=== PATIENT | male | born 1935 | race Caucasian/White ===

== ENCOUNTER 2016-07-07 11:50 | Emergency (ER) | payer MEDICARE, MEDICAID ==
[~2016-07-07] VITALS: Ht 162.6 cm; Wt 96.0 kg
[~2016-07-07 11:50] MED LIST: ACYC400T2 PO; ATEN1TAB; BUSP10TA2; CEFU500T45 PO
[2016-07-07 11:52] VITALS: Ht 162.6 cm; Wt 96.0 kg
--- NOTE | 2016-07-07 15:18 | RADRPT ---
PROCEDURE: XR Chest. CLINICAL INDICATION: trauma TECHNIQUE: Frontal chest x-ray was obtained. COMPARISON: None. FINDINGS: Heart is not enlarged. Mediastinum is not widened. No hilar mass is seen. Lungs are clear of any infiltrates. Right costophrenic angle is not included in the study. No pleural effusion or pneumoth orax is seen. There is right pleural thickening. No fractures are noted. IMPRESSION: Right pleural thickening. Otherwise normal incomplete chest x-ray. .Abdifatah Luo MD, Date Time Electronically viewed and signed by .Abdifatah Luo MD, on 07/07/2016 15:17 .A/
--- NOTE | 2016-07-07 16:06 | RADRPT ---
PROCEDURE: XR Left rib series. CLINICAL INDICATION: Trauma with left-sided rib pain. TECHNIQUE: 3 views of the left rib cage are available for review COMPARISON: Exam dated 07/07/2016. FINDINGS: No displaced rib fractures identified. No acute fracture or dislocation is identified. The visuali zed right lung is clear. There are atherosclerotic changes of the aorta. IMPRESSION: 1. Negative for a displaced rib fracture. 2. Vascular calcifications consistent with atherosclerosis. RPTAT: HLBP .Farzad Santos MD, Date Time Electronically viewed and signed by .Farzad Santos MD, on 07/07/2016 16:05 .P/
[2016-07-07] MEDS ORDERED: AZIT250T94 PO (16:13)
--- NOTE | 2016-07-07 16:21 | ERD ---
ER Documentation Chief Complaint Date/Time DATE: 07/07/16 TIME: 16:18 Chief Complaint LEFT RIB PAIN X 3 DAYS HPI Patient is a 80-year-old male presents complaining of cough and congestion for 3 days as well as left-sided rib pain from coughing. Denies fever. Denies phlegm. Denies nausea vomiting diarrhea. Denies chest pain or shortness of breath. ROS All systems reviewed and are negative except as per history of present illness. Medications Home Meds Active Scripts Azithromycin* (Zithromax*) 250 Mg Tablet, 250 MG PO .ZPACK DIRECTED, #6 TAB TAKE 500 MG (2 TABS) THE FIRST DAY THEN 250 MG (1 TAB) DAYS 2-5 Prov:PATRICIA DOMINGUEZ PA-C 07/07/16 Reported Medications Acyclovir* (Acyclovir*) 400 Mg Tablet, 400 MG PO 5X/DAY 01/29/11 Cefuroxime Axetil* (Cefuroxime Axetil*) 500 Mg Tablet, 500 MG PO BID 01/29/11 Buspirone Hcl* (Buspirone Hcl*) 10 Mg Tablet 05/28/10 Atenolol-Chlorthalidone (Tenoretic 100) 1 Tab Tablet 04/04/10 Allergies Allergies: Coded Allergies: No Known Drug Allergy (Verified Allergy, Mild, 07/07/16) PMhx/Soc History of Surgery: No (HTN.HIGH CHOLESTEROL. NO OTHER MEDICAL HISTORY OR SURGICAL HISTORY) Anesthesia Reaction: No Hx Neurological Disorder: No Hx Respiratory Disorders: No Hx Cardiac Disorders: No Hx Psychiatric Problems: No Hx Miscellaneous Medical Probl: Yes (HTN) Hx Alcohol Use: No Hx Substance Use: No Hx Tobacco Use: No Smoking Status: Unknown if ever smoked FmHx Family History: No diabetes Physical Exam Vitals Vital Signs Date Time Temp Pulse Resp B/P Pulse Ox O2 Delivery O2 Flow Rate FiO2 07/07/16 11:52 98.6 95 19 176/88 95 Physical Exam General: well developed, well nourished, alert, nontoxic, no distress Head: normocephalic, atraumatic Eyes: PERRL, normal conjunctiva Neck: Supple, nontender, no lymphadenopathy, no midline tenderness Oropharynx: no tonsilar erythema or edema, uvula midline, no exudates, no kissing tonsils, no drooling Respiratory: Clear to auscaultation bilaterally, speaks in full sentences, no use of accesory muscles or labored breathing, no rales, ronchi, or wheezing Cardiovascular: RRR, No murmurs GI: soft, non tender, non distended, negative murphys sign, negative mcburneys point tenderness, no cva tenderness bilaterally, no rebound or guarding Back: no midline tenderness, no step offs or bony abnormalities, sensation to light touch in tact Extremities: moving all extremities normally, normal gait, no edema Procedures/MDM Patient presents with cough and congestion. He is afebrile well-appearing. Patient's blood pressure was elevated (>120/80) but appears stable without evidence of hypertension emergency or urgency. The patient was counseled about the risks of hypertension and urged to pursue outpatient monitoring and therapy within a week with their primary care physician. X-ray of chest and ribs negative for acute disease or fracture. Patient was discharged with azithromycin. I reviewed her chart with my supervising physician Dr. Johnson. Recommended this patient follow up with her primary care doctor within 48 hours or return to the emergency room for any worsening of symptoms. However this time I do believe there is suitable for outpatient management. I answered all their questions and they agreed with the plan and were discharged home. Departure Diagnosis: Primary Impression: Bronchitis Condition: Stable Patient Instructions: Acute Bronchitis Additional Instructions: Llame al doctor BUTCH y edda lester MELINA PARA DENTRO DE 1-2 BUCK.Dgale a la secretaria que nosotros le instruimos hacer esta melina.Avise o llame si phillips condicin se empeora antes de la melina. Regresa aqui si peor o no mejor. PATRICIA DOMINGUEZ PA-C Jul 07, 2016 16:21
[2016-07-07 16:26] VITALS: BP 158/89; RESP 18
== END 2016-07-07 16:26 | disposition home or self-care (01) ==
LOC: FTE 11:50
DX: J20.9 Acute bronchitis, unspecified (principal); I10 Essential (primary) hypertension
CPT/HCPCS: 71010; 71100

== ENCOUNTER 2016-07-18 09:07 | Inpatient (IN) | payer MEDICARE, MEDICAID ==
[~2016-07-18] VITALS: Ht 167.6 cm; Wt 95.0 kg
[~2016-07-18 09:07] MED LIST changes: +AZIT250T94 PO
[2016-07-18] MEDS ORDERED: ALBUTEROL/IPRATROPIUM (NEB) 3 ML AMP HHN STA (09:59)
[2016-07-18] MEDS ORDERED: DEXAMETHASONE 10 MG/ML 1 ML INJ IV ONE (10:00)
--- NOTE | 2016-07-18 10:26 | RADRPT ---
PROCEDURE: XR Chest. CLINICAL INDICATION: Shortness of breath. TECHNIQUE: Single frontal view of the chest was obtained. COMPARISON: 07/07/2016. FINDINGS: Cardiac silhouette is enlarged. There is calcification in the thoracic aorta. Pulmonary vasculatur e appears borderline increased. There is near-complete opacification of the left hemithorax with a minimal amount of aerated lung in the left apex. This is presumably secondary to consolidation, ate lectasis and pleural effusion. There is very slight pleural thickening laterally on the right. Thi s may indicate trace pleural fluid. IMPRESSION: 1. Cardiomegaly with mild upper lobe vasculature prominence which may reflect pulmonary venous hyper tension. 2. Near-complete opacification left hemithorax this is presumably a combination of consolidation, a telectasis and moderate pleural effusion. 3. Aortic atherosclerosis. RPTAT: [facility]ACC Physician Josiah Date Time Electronically viewed and signed by Physician Josiah on 07/18/2016 10:25 /
[2016-07-18 10:45] LABS: ALBUMIN 3.4 g/dl (3.3-4.9)
[2016-07-18 10:46] LABS: POTASSIUM 4.2 mmol/L (3.5-5.1)
[2016-07-18 10:48] LABS: BILIRUBIN,INDIRECT 0.1 mg/dl (0-1.1); BILIRUBIN,TOTAL 0.1 mg/dl (0.2-1.3); CREATININE 1.04 mg/dl (0.61-1.24)
[2016-07-18 10:49] LABS: CALCIUM 8.3 mg/dl (8.4-10.2); TOTAL PROTEIN 6.8 g/dl (6.1-8.1)
[2016-07-18 10:52] LABS: INR 0.94; PROTIME 12.6 Sec (12.2-14.2)
[2016-07-18 10:53] LABS: PARTIAL THROMBOPLASTIN TIME 30.3 Sec (25.0-35.0)
[2016-07-18 10:57] LABS: BASOPHILS % 0.2 % (0.0-2.0); EOSINOPHILS # 0.1 10^3/ul (0.0-0.5); EOSINOPHILS % 0.8 % (0.0-7.0); HEMATOCRIT 42.3 % (42.0-52.0); HEMOGLOBIN 13.8 g/dl (14.0-18.0); LYMPHOCYTES # 0.9 10^3/ul (0.8-2.9); LYMPHOCYTES % 8.3 % (15.0-51.0); MEAN CORPUSCULAR HEMOGLOBIN 30.4 pg (29.0-33.0); MEAN CORPUSCULAR HGB CONC 32.7 g/dl (32.0-37.0); MEAN CORPUSCULAR VOLUME 93.1 fl (82.0-101.0); MEAN PLATELET VOLUME 8.1 fl (7.4-10.4); MONOCYTE # 0.7 10^3/ul (0.3-0.9); MONOCYTES % 6.6 % (0.0-11.0); NEUTROPHIL # 8.7 10^3/ul (1.6-7.5); NEUTROPHILS % 84.1 % (39.0-77.0); PLATELET COUNT 327 10^3/UL (140-440); RED BLOOD COUNT 4.54 10^6/ul (4.70-6.10); RED CELL DISTRIBUTION WIDTH 13.6 % (11.5-14.5); UNCORRECTED WBC 10.4 10^3/ul (4.8-10.8); WHITE BLOOD COUNT 10.4 10^3/ul (4.8-10.8)
[2016-07-18 10:58] LABS: CONDITION 1
[2016-07-18 11:00] LABS: TROPONIN-I 0.054 ng/ml (0.00-0.12)
[2016-07-18] MEDS ORDERED: AMLO2.5T78 PO (11:26)
[2016-07-18] MEDS ORDERED: SERT25TA83 PO (11:26)
--- NOTE | 2016-07-18 13:15 | RADRPT ---
PROCEDURE: CT Chest without contrast. CLINICAL INDICATION: Dyspnea TECHNIQUE: CT of the chest was performed on a multi-detector scanner without IV contrast. Coronal and sagittal images were reformatted from the axial data set. One or more of the following dose re duction techniques were used: automated exposure control, adjustment of the mA and/or kV according to patient size, use of iterative reconstruction technique. CTDI = 16.74 mGy. DLP = 692.04 mGy-cm. COMPARISON: None FINDINGS: Large loculated left pleural fluid collection is identified, causing near complete collapse of the l eft lung. Hyperdensities are seen within small airways at the left lung base, possibly aspirated ba rium. Atelectasis and scarring are noted at the right lung base. No pneumothorax or pulmonary coleman a is identified. The central tracheobronchial tree is clear. No gross evidence of suspicious pulmo nary nodule or mass lesion is identified. The heart size is normal without pericardial effusion. Coronary arterial and aortic atherosclerotic calcifications are present. There is no thoracic aortic aneurysm. No mediastinal, hilar, axillary or supraclavicular lymphadenopathy is identified. Visualized portions of the upper abdomen demonstrate no acute abnormality. The surrounding osseous s tructures are remarkable for degenerative spondylosis of the spine. No osteolytic or osteoblastic l esion is detected. IMPRESSION: 1. Large loculated left pleural fluid collection is identified, causing near complete collapse of t he left lung. 2. Hyperdensities are seen within small airways at the left lung base, possibly aspirated barium. 3. Coronary arterial and aortic atherosclerotic calcifications are present. 4. No gross evidence of pulmonary nodule or mass is seen. No lymphadenopathy is identified. RPTAT: EE .Dominick Bonds MD, MD Date Time Electronically viewed and signed by .Dominick Bonds MD, MD on 07/18/2016 13:14 .R/
--- NOTE | 2016-07-18 14:17 | ERA ---
ER Documentation Chief Complaint Date/Time DATE: 07/18/16 TIME: 14:09 Chief Complaint SOB FOR FEW DAYS, WORSEN TODAY HPI Patient is an 80-year-old male who reports shortness of breath over the last several days. He states it is worse with exertion but not with supine position. He denies any fever, cough, congestion, sputum production, sore throat, rhinorrhea, otalgia, nausea, vomiting, diarrhea, abdominal pain, chest trauma, peripheral edema. He says he has never really had this before. Nothing seems to improve it. ROS All systems reviewed and are negative except as per history of present illness. Medications Home Meds Reported Medications Sertraline Hcl* (Sertraline Hcl*) 25 Mg Tablet, 25 MG PO DAILY, #30 TAB 07/18/16 Amlodipine Besylate* (Amlodipine Besylate*) 2.5 Mg Tablet, 2.5 MG PO DAILY, #30 TAB 07/18/16 Discontinued Reported Medications Acyclovir* (Acyclovir*) 400 Mg Tablet, 400 MG PO 5X/DAY 01/29/11 Cefuroxime Axetil* (Cefuroxime Axetil*) 500 Mg Tablet, 500 MG PO BID 01/29/11 Buspirone Hcl* (Buspirone Hcl*) 10 Mg Tablet 05/28/10 Atenolol-Chlorthalidone (Tenoretic 100) 1 Tab Tablet 04/04/10 Discontinued Scripts Azithromycin* (Zithromax*) 250 Mg Tablet, 250 MG PO .ZPACK DIRECTED, #6 TAB TAKE 500 MG (2 TABS) THE FIRST DAY THEN 250 MG (1 TAB) DAYS 2-5 Prov:PATRICIA DOMINGUEZ PA-C 07/07/16 Allergies Allergies: Coded Allergies: No Known Drug Allergy (Verified Allergy, Mild, 07/07/16) PMhx/Soc History of Surgery: No (HTN.HIGH CHOLESTEROL. NO OTHER MEDICAL HISTORY OR SURGICAL HISTORY) Anesthesia Reaction: No Hx Neurological Disorder: No Hx Respiratory Disorders: No Hx Cardiac Disorders: No Hx Psychiatric Problems: No Hx Miscellaneous Medical Probl: Yes (HTN) Hx Alcohol Use: No Hx Substance Use: No Hx Tobacco Use: No Smoking Status: Current every day smoker FmHx Family History: coronary disease Physical Exam Vitals Vital Signs Date Time Temp Pulse Resp B/P Pulse Ox O2 Delivery O2 Flow Rate FiO2 07/18/16 12:40 98.1 82 20 131/90 97 Nasal Cannula 3.0 07/18/16 10:45 89 20 95 Nasal Cannula 3.0 07/18/16 10:45 3.0 07/18/16 09:27 Nasal Cannula 3.0 07/18/16 09:27 Nasal Cannula 3 07/18/16 09:10 97.5 107 24 187/95 82 Physical Exam Const: [] Well-developed well-nourished male sitting on the bed no acute distress Head: Atraumatic normocephalic Eyes: Normal Conjunctiva ENT: Normal External Ears, Nose and Mouth. Neck: Full range of motion..~ No meningismus. Resp: Diffuse wheezing noted with decreased breath sounds noted in the left lung field, surprisingly no tachypnea Cardio: Regular rate and rhythm, no murmurs Abd: Soft, non tender, non distended. Normal bowel sounds Skin: No petechiae or rashes Back: No midline or flank tenderness Ext: No cyanosis, or edema Neur: Awake and alert oriented 3 GCS of 15 Psych: Normal Mood and Affect Result Diagram: 07/18/1695107/18/1652 Results 24 hrs Laboratory Tests Test 07/18/16 09:52 Activated Partial Thromboplast Time 30.3Sec Alanine Aminotransferase (ALT/SGPT) 40IU/L Albumin 3.4g/dl Albumin/Globulin Ratio 1.00 Alkaline Phosphatase 77IU/L Anion Gap 13 Aspartate Amino Transf (AST/SGOT) 35IU/L B-Type Natriuretic Peptide 837PG/ML Basophils # 0.010^3/ul Basophils % 0.2% Blood Urea Nitrogen 17mg/dl Calcium Level 8.3mg/dl Carbon Dioxide Level 33mmol/L Chloride Level 99mmol/L Creatinine 1.04mg/dl Direct Bilirubin 0.00mg/dl Eosinophils # 0.110^3/ul Eosinophils % 0.8% Globulin 3.40g/dl Glucose Level 102mg/dl Hematocrit 42.3% Hemoglobin 13.8g/dl INR International Normalized Ratio 0.94 Indirect Bilirubin 0.1mg/dl Lymphocytes # 0.910^3/ul Lymphocytes % 8.3% Mean Corpuscular Hemoglobin 30.4pg Mean Corpuscular Hemoglobin Concent 32.7g/dl Mean Corpuscular Volume 93.1fl Mean Platelet Volume 8.1fl Monocytes # 0.710^3/ul Monocytes % 6.6% Neutrophils # 8.710^3/ul Neutrophils % 84.1% Nucleated Red Blood Cells # 0.010^3/ul Nucleated Red Blood Cells % 0.0/100WBC Platelet Count 12651^3/UL Potassium Level 4.2mmol/L Prothrombin Time 12.6Sec Prothrombin Time Ratio 1.0 Red Blood Count 4.5410^6/ul Red Cell Distribution Width 13.6% Sodium Level 141mmol/L Total Bilirubin 0.1mg/dl Total Protein 6.8g/dl Troponin I 0.054ng/ml White Blood Count 10.410^3/ul Current Medications Medications (Trade) Dose Ordered Sig/Scott Route PRN Reason Start Time Stop Time Status Last Admin Dose Admin Albuterol/ Ipratropium (Duoneb) 3 ml ONCE STAT HHN 07/18/16 09:59 07/18/16 10:00 DC 07/18/16 10:44 Dexamethasone (Decadron) 6 mg ONCE ONCE IV 07/18/16 10:00 07/18/16 10:01 DC 07/18/16 10:49 Procedures/MDM Differential includes pneumonia, bronchitis, COPD, CHF, myocardial ischemia, pleural effusion, dyspnea EKG: Normal sinus rhythm at 94 bpm, Q-wave noted only in lead V2, poor R-wave progression across the precordium, nonspecific ST-T wave changes without evidence for acute ischemia, no old EKG available for comparison Chest x-ray: Left large left pleural effusion 1416: Patient remains hemodynamically stable with no change in his examination. I have spoken with Dr. Smiley to have the patient admitted to the hospital for further evaluation and treatment. Also consult with interventional radiology to have his pleural effusion tapped and sent to pathology for evaluation. I have informed to the patient and his of these test results and his need for admission for further evaluation. Departure Diagnosis: Primary Impression: Pleural effusion on left Additional Impression: Shortness of breath SAMMI ZIMMERMAN Jul 18, 2016 14:17
[2016-07-18] MEDS ORDERED: ONDANSETRON 4 MG INJ IV PRN ×2 (14:30→20:00)
[2016-07-18] MEDS ORDERED: ACETAMINOPHEN 325 MG TAB PO PRN ×3 (14:30→20:00)
[2016-07-18 16:03] VITALS: TEMP 97.1
[2016-07-18] MEDS ORDERED: LIDOCAINE 1% (MPF) 5 ML VIAL ONE (16:07)
--- NOTE | 2016-07-18 16:09 | RADRPT ---
PROCEDURE: US guided left thoracentesis. CLINICAL INDICATION: Shortness of breath. Left pleural effusion. TECHNIQUE: Prior to the procedure, informed consent was obtained. The risks, benefits, and alternatives were e xplained to the patient or the patient's family, including but not limited to bleeding, infection, p ain, visceral or vascular damage, shock, pneumothorax, chest tube placement, air embolism, and . The patient or the patient's family understood the risks and the alternatives and wished to proce ed with the study. Informed written consent was obtained. A procedural pause was performed. The patient's name, date of , and procedure to be performed were verified. Ultrasound of the left hemithorax was performed in the axial and sagittal planes. A left pleural eff usion is noted. Utilizing ultrasound guidance, optimal location for entry to the pleural cavity was ascertained. The overlying skin was prepped and draped in the usual sterile fashion. Approximately 10 ml of 1% Xylocaine was injected locally for pain control. Using ultrasound guidance, a 5-Uzbek Yueh catheter was introduced into the left pleural space without difficulty. Fluid was aspirated. COMPARISON: None. FINDINGS: Initial ultrasound demonstrates fluid in the left pleural space. Approximately 2.0 liters of serosa nguineous was aspirated and sent to the laboratory. IMPRESSION: 1. Satisfactory ultrasound-guided left thoracentesis. RPTAT: QQ .Sha Crowley MD, Date Time Electronically viewed and signed by .Sha Crowley MD, on 07/18/2016 16:08 .R/
--- NOTE | 2016-07-18 16:32 | RADRPT ---
PROCEDURE: XR Chest 1 view. CLINICAL INDICATION: Status post thoracentesis TECHNIQUE: AP views of the chest were obtained. COMPARISON: July 18, 2016 at 09:48 a.m. FINDINGS: The heart is large. Calcified atherosclerosis is noted in the aorta. There has been interval decrea se in left pleural fluid with improved aeration of the left lung. Moderate residual pleural effusio n remains. Patchy infiltrates in the left mid and lower lung are seen. Small right pleural effusio n with associated basilar atelectasis is seen. No pneumothorax as visualized. Osseous structures a re intact. IMPRESSION: Cardiomegaly with calcified atherosclerosis in the aorta. Interval decrease in left pleural effusion with improved aeration of the left lung. Moderate residu al pleural effusion with associated lower lobe infiltrates remains. No pneumothorax. Small right pleural effusion with associated basilar atelectasis. RPTAT: AA .Urban Arias MD, Date Time Electronically viewed and signed by .Urban Arias MD, MD on 07/18/2016 16:31 .P/
[2016-07-18 17:20] VITALS: Ht 167.6 cm; Wt 95.0 kg
[2016-07-18 17:33] VITALS: BP 154/74; RESP 20
[2016-07-18 17:45] LABS: FLUID GLUCOSE 115 mg/dl; FLUID LD 1419 U/L; FLUID TOTAL PROTEIN 4.4 g/dl; FLUID TYPE PLEURAL FLUID
[2016-07-18 17:47] VITALS: PULSE 92
[2016-07-18 18:45] VITALS: BP 124/74; RESP 15
[2016-07-18] MEDS ORDERED: LEVOFLOXACIN 500MG/D5W (PMX) 100 ML IVPB SCH (19:00)
--- NOTE | 2016-07-18 19:47 | QN ---
Documentation Comment [id number] SAMARIA LINO MD Jul 18, 2016 19:47
[2016-07-18] MEDS ORDERED: NACL 0.9% 3 ML SYG IV SCH (20:00)
[2016-07-18] MEDS ORDERED: DOCUSATE SODIUM 100 MG CAP PO PRN (20:00)
[2016-07-18] MEDS ORDERED: MAGNESIUM HYDROXIDE 30ML CUP PO PRN (20:00)
[2016-07-18] MEDS ORDERED: BISACODYL (EC) 5 MG TAB PO PRN (20:00)
[2016-07-18] MEDS ORDERED: ACETAMINOPHEN 650 MG SUPP PR PRN (20:00)
[2016-07-18 20:26] VITALS: PULSE 91
--- NOTE | 2016-07-18 20:30 | HP ---
DATE OF ADMISSION: 07/18/2016 HISTORY OF PRESENT ILLNESS: Andrew Ibarra is an 80-year-old male who has history of hypertension. 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 The patient's chest x-ray shows card iomegaly with calcified atherosclerosis in the aorta and total decrease in the left pleural effusion with improved aeration of the left lung, moderate residual pleural effusion with associated lower l obe infiltrate, small right pleural effusion with associated bibasilar atelectasis. The patient's C T chest shows large loculated left pleural effusion collection, hyperdensities, coronary arteries an d aortic atherosclerotic calcifications present. The patient had ultrasound-guided thoracentesis. Two liters were removed, and the patient is feeling better. PAST MEDICAL HISTORY: Hypertension, depression. ALLERGY HISTORY: NEGATIVE. FAMILY HISTORY: Denies. SOCIAL HISTORY: Denies. MEDICATION HISTORY: Listed as: 1. Amlodipine. 2. Zoloft. REVIEW OF SYSTEMS: HEENT: Unremarkable. RESPIRATORY: Short of breath, orthopnea, PND. CARDIOVASCULAR: No chest pain, palpitation. ABDOMEN: No dyspepsia. EXTREMITIES: No swelling. CENTRAL NERVOUS SYSTEM: Unremarkable. PHYSICAL EXAMINATION: GENERAL: The patient is an overweight male, awake, alert. VITAL SIGNS: Stable. Pulse 94, blood pressure 154/74. HEENT: Head is atraumatic, normocephalic. Pupils are equal, reactive to light. No pale conjunctiv ae or icterus. NECK: Supple. No JVD. LUNGS: Decreased air entry and rhonchi and rales at both bases. CARDIOVASCULAR: S1, S2 are normal. ABDOMEN: Soft, obese. Bowel sounds present. No palpable mass or hepatosplenomegaly. No guarding, rebound tenderness. EXTREMITIES: No cyanosis, clubbing, edema. CENTRAL NERVOUS SYSTEM: The patient is awake, alert. No focal deficit. LABORATORY DATA: Hematocrit 42.3. Sodium 141, potassium 4.2, CO2 33. IMPRESSION: 1. The patient has pleural effusion. 2. Lung infiltrate. 3. Hypertension. 4. Obesity. 5. The patient has incomplete database. PLAN: Give this patient oxygen, bronchodilator, antibiotic. The patient will also have diuretics g iven as well as ABG will be done and including 2D echo. Orders were entered. Dictated By: SAMARIA LINO MD BS/NTS Conf#: [id number] DID#: [id number]
[2016-07-18 20:53] LABS: FLUID EOSINOPHIL 1 %; FLUID LYMPHOCYTES 10 %; FLUID MONOCYTES 73 %
[2016-07-18 20:54] LABS: FLUID NEUTROPHILS 12 %
[2016-07-18 22:03] LABS: FLUID APPEARANCE BLOODY; FLUID RBC EST 4+; FLUID TYPE THORACENTHESIS; FLUID WBC'S 1132 /cmm
[2016-07-19] VITALS (13 sets, daily range): BP systolic 121–159; BP diastolic 65–86; PULSE 74–93; RESP 16–19
[2016-07-19] MEDS: PANTOPRAZOLE (EC) 40 MG TAB PO SCH (06:45)
[2016-07-19 07:34] LABS: BASOPHILS % 0.1 % (0.0-2.0); HEMATOCRIT 40.5 % (42.0-52.0); HEMOGLOBIN 13.3 g/dl (14.0-18.0); LYMPHOCYTES # 1.3 10^3/ul (0.8-2.9); LYMPHOCYTES % 7.9 % (15.0-51.0); MEAN CORPUSCULAR HEMOGLOBIN 30.5 pg (29.0-33.0); MEAN CORPUSCULAR HGB CONC 32.7 g/dl (32.0-37.0); MEAN CORPUSCULAR VOLUME 93.3 fl (82.0-101.0); MEAN PLATELET VOLUME 7.9 fl (7.4-10.4); MONOCYTES % 6.2 % (0.0-11.0); NEUTROPHIL # 13.9 10^3/ul (1.6-7.5); NEUTROPHILS % 85.8 % (39.0-77.0); PLATELET COUNT 346 10^3/UL (140-440); RED BLOOD COUNT 4.35 10^6/ul (4.70-6.10); UNCORRECTED WBC 16.2 10^3/ul (4.8-10.8); WHITE BLOOD COUNT 16.2 10^3/ul (4.8-10.8)
[2016-07-19 07:39] LABS: CONDITION 1
[2016-07-19 07:50] LABS: ALBUMIN 2.9 g/dl (3.3-4.9)
[2016-07-19 07:51] LABS: POTASSIUM 4.4 mmol/L (3.5-5.1)
[2016-07-19 07:53] LABS: ALBUMIN/GLOBULIN RATIO 0.82; BILIRUBIN,INDIRECT 0.1 mg/dl (0-1.1); BILIRUBIN,TOTAL 0.1 mg/dl (0.2-1.3); CALCIUM 8.1 mg/dl (8.4-10.2); CREATININE 1.05 mg/dl (0.61-1.24); TOTAL PROTEIN 6.4 g/dl (6.1-8.1)
[2016-07-19 08:48] LABS: AADO2 Arterial 79.3 mmHg (7.0-24.0); Allen Test ACCEPTAB; Arterial Base Excess 5.4 mmol/L (-3.0-3); Arterial COHb 0.8 % (0.0-3.0); Arterial Fraction of Oxyhgb 90.8 % (93.0-99.0); Arterial HCO3 32.7 mmol/L (22.0-26.0); Arterial MetHb 0.2 % (0.0-1.5); Arterial Total Hemglobin 14.6 g/dl (12.0-18.0); MODE NASAL CANNULA
[2016-07-19] MEDS ORDERED: INFLUENZA VIRUS VACCINE 0.5 ML (DISPENSING) IM* ONE (09:00)
[2016-07-19] MEDS: SERTRALINE 50 MG TAB PO SCH (09:53)
[2016-07-19] MEDS: AMLODIPINE 2.5 MG TAB PO SCH (09:53)
--- NOTE | 2016-07-19 18:55 | PN ---
Date/Time of Note Date/Time of Note DATE: 07/19/16 TIME: 18:55 Assessment/Plan VTE Prophylaxis VTE Prophylaxis Intervention: other Lines/Catheters IV [facility]ine [facility] Urinary Cath still in place: No Assessment/Plan Chief Complaint/Hosp Course IMPRESSION: 1. The patient has pleural effusion. 2. Lung infiltrate. 3. Hypertension. 4. Obesity. 5. The patient has incomplete database. plan pulmon chest xr Problems: Subjective 24 Hr Interval Summary Respiratory: shortness of breath (better) Exam/Review of Systems Vital Signs Vitals Vital Signs Date Time Temp Pulse Resp B/P Pulse Ox O2 Delivery O2 Flow Rate FiO2 07/19/16 17:06 74 07/19/16 15:40 98.6 18 128/67 94 07/19/16 08:36 Nasal Cannula 3.0 Exam Neck: supple Respiratory: diminished breath sounds Cardiovascular: regular rate and rhythm Gastrointestinal: soft Musculoskeletal: nl extremities to inspection Results Result Diagram: 07/19/16 0700 07/19/16 0700 Results 24 hrs Laboratory Tests Test 07/18/16 20:18 07/19/16 07:00 07/19/16 08:00 Bedside Glucose 170 Alanine Aminotransferase (ALT/SGPT) 33 Albumin 2.9 L Albumin/Globulin Ratio 0.82 Alkaline Phosphatase 62 Anion Gap 11 Aspartate Amino Transf (AST/SGOT) 31 Basophils # 0.0 Basophils % 0.1 Blood Urea Nitrogen 20 Calcium Level 8.1 L Carbon Dioxide Level 35 H Chloride Level 99 Creatinine 1.05 Direct Bilirubin 0.00 Eosinophils # 0.0 Eosinophils % 0.0 Globulin 3.50 H Glucose Level 97 Hematocrit 40.5 L Hemoglobin 13.3 L Indirect Bilirubin 0.1 Lymphocytes # 1.3 Lymphocytes % 7.9 L Mean Corpuscular Hemoglobin 30.5 Mean Corpuscular Hemoglobin Concent 32.7 Mean Corpuscular Volume 93.3 Mean Platelet Volume 7.9 Monocytes # 1.0 H Monocytes % 6.2 Neutrophils # 13.9 H Neutrophils % 85.8 H Nucleated Red Blood Cells # 0.0 Nucleated Red Blood Cells % 0.0 Platelet Count 346 Potassium Level 4.4 Red Blood Count 4.35 L Red Cell Distribution Width 14.0 Sodium Level 141 Total Bilirubin 0.1 L Total Protein 6.4 White Blood Count 16.2 #H Arterial Blood HCO3 32.7 H Arterial Blood Base Excess 5.4 H Arterial Blood Oxygen Saturation 91.7 L Tony Test ACCEPTAB Arterial Blood Gas Puncture Site Right Radial Arterial Blood Carboxyhemoglobin 0.8 Arterial Blood Date Drawn 07/19/2016 8:30:21 AM Arterial Blood Methemoglobin 0.2 Arterial Blood pCO2 (Temp correct) 59.0 H Arterial Blood pH (Temp corrected) 7.361 Arterial Blood pO2 (Temp corrected) 65.3 L Blood Gas A-a O2 Differential 79.3 H Blood Gas Modality NASAL CANNULA Blood Gas Notified Time 07/19/2016 8:48:01 AM Blood Gas Notified Whom JLD Blood Gas Specimen Source Blood arterial Blood Gas Temperature 37.0 FiO2 30.0 Oxyhemoglobin Percent 90.8 L Total Hemoglobin 14.6 Medications Medications Current Medications Acetaminophen (Tylenol Tab) 650 mg Q6H PRN PO PAIN AND OR ELEVATED TEMP; Start 07/18/16 at 19:00 Amlodipine Besylate (Norvasc) 2.5 mg DAILY PO Last administered on 07/19/16 09: 53; Admin Dose 2.5 MG; Start 07/19/16 at 09:00 Sertraline HCl (Zoloft) 25 mg DAILY PO Last administered on 07/19/16 09:53; Admin Dose 25 MG; Start 07/19/16 at 09:00 Ondansetron HCl (Zofran Inj) 4 mg Q6H PRN IV NAUSEA AND/OR VOMITING; Start 07/18 at 20:00 Acetaminophen (Tylenol Tab) 650 mg Q6H PRN PO PAIN LEVEL 1-3 OR FEVER; Start at 20:00 Acetaminophen (Tylenol Supp) 650 mg Q6H PRN VT PAIN LEVEL 1-3 OR FEVER; Start 07/18/16 at 20:00 Acetaminophen/ Hydrocodone Bitart ([place] (5/325)) 1 tab Q6H PRN PO MODERATE PAIN LEVEL 4-6; Start 07/18/16 at 20:00 Docusate Sodium (Colace) 100 mg Q12H PRN PO CONSTIPATION; Start 07/18/16 at 20: 00 Magnesium Hydroxide (Milk Of Mag) 30 ml DAILY PRN PO CONSTIPATION; Start at 20:00 Bisacodyl (Dulcolax) 5 mg DAILY PRN PO CONSTIPATION; Start 07/18/16 at 20:00 Pantoprazole 40 mg 40 mg DAILY@06 PO Last administered on 07/19/16t 06:45; Admin Dose 40 MG; Start 07/19/16 at 06:00 Levofloxacin/ Dextrose (Levaquin 500mg/ D5W 100 ml (Pmx)) 100 ml @ 100 mls/hr Q24H IVPB ; Start 07/19/16 at 20:00 SAMARIA LINO MD Jul 19, 2016 18:55
--- NOTE | 2016-07-19 20:10 | RADRPT ---
Echocardiogram Report Patient Name: ALEXANDER HOWARD Gender: Male Date: 1935 Study Date: 19-Jul-2016 Helmet Hat Sweatband Puncher: Maliha Lakhani ERUM Location: 519 Ref. Physician: SAMARIA LINO Quality: Technically Difficult Study Procedures: Transthoracic echocardiogram with complete 2D, M-Mode, and doppler examination. Indications: Coronary Artery Disease. 2D/M Mode Doppler Measurement Value Normal Ranges Measurement Value Normal Ranges LVIDd 2D 6.0 3.5 - 5.6 cm AV Peak [place] 1.5 m/sec LVIDs 2D 5.0 2.1 - 4.1 cm AV Peak PG 8.7 mmHg LVPWd 2D 1.2 0.6 - 1.1 cm LVOT Peak [place] 1.1 m/sec IVSd 2D 1.1 0.6 - 1.1 cm LVOT Peak PG 5.0 mmHg AoR Diam 2D 3.4 2.0 - 3.7 cm MV E Peak [place] 0.7 m/sec EDV 2D 177.8 cm3 MV A Peak [place] 1.0 m/sec ESV 2D 128.1 cm3 MV E/A 0.7 LA Dimen 2D 3.8 2.3 - 4.0 cm MV Decel Time 262 msec MV Decel [place] 3 MV E/A 0.7 Findings Left Ventricle: Mild concentric left ventricular hypertrophy. Mild enlargement of left ventricle cavity. Moderate global left ventricular systolic dysfunction. Ejection fraction is visually estimated at 3035 %. Tissue Doppler/Mitral Doppler indices are consistent with impaired relaxation (Stage I diastolic dysfunction). There is global hypokinesis involving all segments of the left ventricle. Right Ventricle: Normal right ventricular size. Left Atrium: The left atrium is normal in size. Right Atrium: The right atrium is normal in size. Mitral Valve: Normal appearance and function of the mitral valve with trace physiologic regurgitation. Aortic Valve: Normal appearance of the aortic valve. No significant aortic stenosis or insufficiency. Tricuspid Valve: Normal appearance and function of the tricuspid valve with trace physiologic regurgitation. Normal right ventricular systolic pressure. Pericardium: Normal pericardium with no significant pericardial effusion. Aorta: Normal aortic root. IVC: Normal size and normal respiratory collapse consistent with normal right atrial pressure. Conclusions 1.Mild concentric left ventricular hypertrophy. Mild enlargement of left ventricle cavity. Moderate global left ventricular systolic dysfunction. Ejection fraction is visually estimated at 30-35 %. Tissue Doppler/Mitral Doppler indices are consistent with impaired relaxation (Stage I diastolic dysfunction). There is global hypokinesis involving all segments of the left ventricle. 2.Normal appearance and function of the mitral valve with trace physiologic regurgitation. 3.Normal appearance and function of the tricuspid valve with trace physiologic regurgitation. Normal right ventricular systolic pressure. Electronically Signed By: Khang Lovett 19-Jul-2016 20:09:49 -0800 Patient Name: ALEXANDER HOWARD Study Date: 19-Jul-2016 [id number]
[2016-07-19] MEDS: LEVOFLOXACIN 500MG/D5W (PMX) 100 ML IVPB SCH (21:12)
[2016-07-19] MEDS: HYDROCODONE/APAP (5/325) TAB PO PRN (21:12)
--- NOTE | 2016-07-19 23:33 | RADRPT ---
PROCEDURE: XR Chest. CLINICAL INDICATION: Follow-up for left pleural effusion. TECHNIQUE: Single frontal view of the chest. COMPARISON: 07/18/2016. FINDINGS: Cardiomegaly with atherosclerotic calcifications in the thoracic aorta. Moderate left effusion and the pleural effusion is improved over interval. Likely partial collapse of the left lower lobe. Tra ce pleural fluid likely present at the right lung base and in the minor fissure. Right lung is othe rwise substantially clear. No signs of pneumothorax are seen. The osseous structures and soft tissu es are unremarkable. IMPRESSION: 1. Cardiomegaly and atherosclerotic calcifications again seen in the thoracic aorta. Of 2. Previo usly seen large left pleural effusion is decreased over interval, with likely persistent at least pa rtial collapse of the left lower lobe. 3. Trace pleural effusion is likely present at the right lung base and within the right horizontal fissure. 4. Otherwise, the right lung is substantially clear. RPTAT: [facility] Physician Arleth Date Time Electronically viewed and signed by Physician Arleth on 07/19/2016 23:33 RS/
[2016-07-20] VITALS (13 sets, daily range): BP systolic 122–164; BP diastolic 64–82; PULSE 75–100; RESP 18–22
[2016-07-20] MEDS: PANTOPRAZOLE (EC) 40 MG TAB PO SCH (06:12)
[2016-07-20 06:34] LABS: POTASSIUM 4.1 mmol/L (3.5-5.1)
[2016-07-20 06:37] LABS: CREATININE 1.1 mg/dl (0.61-1.24)
[2016-07-20 06:54] LABS: BASOPHILS % 0.3 % (0.0-2.0); EOSINOPHILS # 0.1 10^3/ul (0.0-0.5); EOSINOPHILS % 1.1 % (0.0-7.0); HEMATOCRIT 40.7 % (42.0-52.0); HEMOGLOBIN 13.5 g/dl (14.0-18.0); LYMPHOCYTES # 1.4 10^3/ul (0.8-2.9); LYMPHOCYTES % 13.5 % (15.0-51.0); MEAN CORPUSCULAR HEMOGLOBIN 30.8 pg (29.0-33.0); MEAN CORPUSCULAR HGB CONC 33.2 g/dl (32.0-37.0); MEAN CORPUSCULAR VOLUME 92.9 fl (82.0-101.0); MONOCYTES % 9.5 % (0.0-11.0); NEUTROPHIL # 8.1 10^3/ul (1.6-7.5); NEUTROPHILS % 75.6 % (39.0-77.0); PLATELET COUNT 330 10^3/UL (140-440); RED BLOOD COUNT 4.38 10^6/ul (4.70-6.10); RED CELL DISTRIBUTION WIDTH 13.9 % (11.5-14.5); UNCORRECTED WBC 10.7 10^3/ul (4.8-10.8); WHITE BLOOD COUNT 10.7 10^3/ul (4.8-10.8)
[2016-07-20 08:04] LABS: CONDITION 1
[2016-07-20] MEDS: SERTRALINE 50 MG TAB PO SCH (09:41)
[2016-07-20] MEDS: AMLODIPINE 2.5 MG TAB PO SCH (09:41)
--- NOTE | 2016-07-20 10:05 | CONS ---
Date/Time of Note Date/Time of Note DATE: 07/20/16 TIME: 09:57 Assessment/Plan Assessment/Plan Additional Assessment/Plan Assessment and recommendation; 1. Patient admitted with congestive heart failure with a very large left pleural effusion status post thoracentesis, 2 L of serous fluid was removed. 2. High BNP. 3. History of hypertension. 4. Possibly some element of superimposed bronchitis. 5. Underlying cardiomyopathy with poor ejection fraction ; 30-35%. 6. Possible underlying obstructive sleep apnea. Next Continue current treatment. Patient has responded well. Patient will need to have a sleep study on outpatient basis. Will also benefit from low-dose diuretic on outpatient basis as well. Consultation Date/Type/Reason Admit Date/Time Jul 18, 2016 at 14:21 Date of Consultation: Jul 20, 2016 Type of Consultation: Pulmonary Reason for Consultation Patient admitted with shortness of breath, discovered to have a large left pleural effusion. Pulmonary consultation obtained for further evaluation. Next Mr. Ibarra is a very pleasant 80-year-old [place] gentleman who came into the emergency room on the first of this month with complaints of shortness of breath going on for the last few days without any associated chest pain, fever, coughing, wheezing. Upon evaluation a chest x-ray was done which showed a very large left pleural effusion. Subsequently ultrasound-guided thoracentesis was performed and 2 L of serous fluid was removed. With marked improvement in patient's symptoms. The patient does complain of chronic dyspnea on exertion. Past medical history: 1. hypertension 2 .depression 3. No known history of any coronary artery disease. 4. No history of any surgeries. Next Medications; reviewed. Allergies; none Social history; patient has a remote history of smoking. No sign of any alcohol or drug abuse. Family history; patient is , has 2 children. Various family members of hypertension, diabetes. 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 Review of systems; denies any headache, visual changes, hearing loss. Denies any headache. Denies any seizures. Denies any chest pain, angina, shortness of breath is markedly improved. Denies any cough, hemoptysis. Denies any sputum production. There is a chronic orthopnea. Has steady weight. Complains of snoring. Excessive daytime sleepiness. Denies any acid reflux, abdominal pain, melena, hematochezia. Denies any edema. Denies any skin changes. General examination; elderly male, awake alert, currently in no distress. Appears overweight. Respiratory: shortness of breath (better) Social History Smoking Status: Current every day smoker Exam/Review of Systems Vital Signs Vitals Vital Signs Date Time Temp Pulse Resp B/P Pulse Ox O2 Delivery O2 Flow Rate FiO2 07/20/16 08:11 Nasal Cannula 3.0 07/20/16 07:48 98.6 85 18 164/82 93 Intake and Output 07/19/16 07/19/16 07/20/16 15:00 23:00 07:00 Intake Total 400 ml 800 ml 800 ml Output Total 250 ml 600 ml Balance 150 ml 800 ml 200 ml Exam H EENT examination; supple neck, JVD difficult to see because of thick neck, patient has bilateral cataracts. Upper jaw is edentulous with a few remaining teeth in the lower jaw. Next No thyromegaly. No lymphadenopathy. Chest examination; minimally decreased breath sounds left lower lobe, otherwise clear, S1-S2 audible. No murmurs. Regular rate and rhythm. Abdomen examination; protuberant, nontender. Bowel sounds audible. No organomegaly. Extremity examination; no peripheral edema. Pulses 1+ bilaterally. No clubbing. GUNITE MIXER examination; cranial nerves are intact there is no motor deficit. Results Result Diagram: 07/20/16 0600 07/20/16 0600 Results 24 hrs Laboratory Tests Test 07/20/16 06:00 Anion Gap 11 Basophils # 0.0 Basophils % 0.3 Blood Urea Nitrogen 24 H Calcium Level 8.0 L Carbon Dioxide Level 35 H Chloride Level 100 Creatinine 1.10 Eosinophils # 0.1 Eosinophils % 1.1 Glucose Level 89 Hematocrit 40.7 L Hemoglobin 13.5 L Lymphocytes # 1.4 Lymphocytes % 13.5 L Mean Corpuscular Hemoglobin 30.8 Mean Corpuscular Hemoglobin Concent 33.2 Mean Corpuscular Volume 92.9 Mean Platelet Volume 8.0 Monocytes # 1.0 H Monocytes % 9.5 Neutrophils # 8.1 H Neutrophils % 75.6 Nucleated Red Blood Cells # 0.0 Nucleated Red Blood Cells % 0.0 Platelet Count 330 Potassium Level 4.1 Red Blood Count 4.38 L Red Cell Distribution Width 13.9 Sodium Level 142 White Blood Count 10.7 # Medications Medications Current Medications Acetaminophen (Tylenol Tab) 650 mg Q6H PRN PO PAIN AND OR ELEVATED TEMP; Start 2/1/17 at 19:00 Amlodipine Besylate (Norvasc) 2.5 mg DAILY PO Last administered on 07/20/16 09: 41; Admin Dose 2.5 MG; Start 07/19/16 at 09:00 Sertraline HCl (Zoloft) 25 mg DAILY PO Last administered on 07/20/16 09:41; Admin Dose 25 MG; Start 07/19/16 at 09:00 Ondansetron HCl (Zofran Inj) 4 mg Q6H PRN IV NAUSEA AND/OR VOMITING; Start 07/18 at 20:00 Acetaminophen (Tylenol Tab) 650 mg Q6H PRN PO PAIN LEVEL 1-3 OR FEVER; Start at 20:00 Acetaminophen (Tylenol Supp) 650 mg Q6H PRN [place] PAIN LEVEL 1-3 OR FEVER; Start 07/18/16 at 20:00 Acetaminophen/ Hydrocodone Bitart ([place] (5/325)) 1 tab Q6H PRN PO MODERATE PAIN LEVEL 4-6 Last administered on 07/19/16 21:12; Admin Dose 1 TAB; Start 07/18 at 20:00 Docusate Sodium (Colace) 100 mg Q12H PRN PO CONSTIPATION; Start 07/18/16 at 20: 00 Magnesium Hydroxide (Milk Of Mag) 30 ml DAILY PRN PO CONSTIPATION; Start at 20:00 Bisacodyl (Dulcolax) 5 mg DAILY PRN PO CONSTIPATION; Start 07/18/16 at 20:00 Pantoprazole 40 mg 40 mg DAILY@06 PO Last administered on 07/20/16 06:12; Admin Dose 40 MG; Start 07/19/16 at 06:00 Levofloxacin/ Dextrose (Levaquin 500mg/ D5W 100 ml (Pmx)) 100 ml @ 100 mls/hr Q24H IVPB Last administered on 07/19/16 21:12; Admin Dose 100 MLS/HR; Start 07/19/16 at 20:00 ROSSY RIOS Jul 20, 2016 10:05
[2016-07-20] MEDS: LEVOFLOXACIN 500MG/D5W (PMX) 100 ML IVPB SCH (19:58)
[2016-07-20] MEDS: HYDROCODONE/APAP (5/325) TAB PO PRN (19:59)
[2016-07-21] VITALS (12 sets, daily range): BP systolic 113–152; BP diastolic 66–97; PULSE 73–99; RESP 20
[2016-07-21] MEDS: PANTOPRAZOLE (EC) 40 MG TAB PO SCH (05:48)
[2016-07-21] MEDS: AMLODIPINE 2.5 MG TAB PO SCH (08:42)
[2016-07-21] MEDS: SERTRALINE 50 MG TAB PO SCH (08:42)
[2016-07-21] MEDS: FUROSEMIDE 20 MG INJ IV SCH (08:43)
--- NOTE | 2016-07-21 11:16 | RADRPT ---
PROCEDURE: XR Chest. CLINICAL INDICATION: Shortness of breath TECHNIQUE: A single portable view of the chest was obtained. COMPARISON: 07/19/2016 FINDINGS: The aorta is tortuous and atherosclerotic. The cardiomediastinal silhouette is otherwise enlarged a nd is unchanged. A moderate size left pleural effusion is seen with probable compressive atelectasis and is stable. The right lung is relatively clear. The soft tissues and osseous structures demonst rate benign age related senescent changes. IMPRESSION: Moderate size left pleural effusion with probable compressive atelectasis which appears stable. RPTAT: HPNM Physician Yo Date Time Electronically viewed and signed by Physician Yo on 07/21/2016 11:16 /
--- NOTE | 2016-07-21 12:05 | PN ---
Date/Time of Note Date/Time of Note DATE: 07/21/16 TIME: 12:04 Assessment/Plan VTE Prophylaxis VTE Prophylaxis Intervention: other Lines/Catheters IV Catheter Type (from Nrs): Saline Lock Urinary Cath still in place: No Assessment/Plan Chief Complaint/Hosp Course IMPRESSION: 1. The patient has pleural effusion. 2. Lung infiltrate. 3. Hypertension. 4. Obesity. 5. The patient has incomplete database. plan pulmononary pending chest xr Problems: Subjective 24 Hr Interval Summary Respiratory: no complaints Cardiovascular: no complaints Exam/Review of Systems Vital Signs Vitals Vital Signs Date Time Temp Pulse Resp B/P Pulse Ox O2 Delivery O2 Flow Rate FiO2 07/21/16 11:16 97.8 91 20 134/97 92 07/21/16 07:46 Nasal Cannula 3.0 Intake and Output 07/20/16 07/20/16 07/21/16 15:00 23:00 07:00 Intake Total 1120 ml Balance 1120 ml Exam Respiratory: clear to auscultation Cardiovascular: regular rate and rhythm Gastrointestinal: soft Musculoskeletal: nl extremities to inspection Extremities: normal pulses Results Result Diagram: 07/20/16 0600 07/20/16 0600 Medications Medications Current Medications Acetaminophen (Tylenol Tab) 650 mg Q6H PRN PO PAIN AND OR ELEVATED TEMP; Start 07/18/16 at 19:00 Amlodipine Besylate (Norvasc) 2.5 mg DAILY PO Last administered on 07/21/16 08: 42; Admin Dose 2.5 MG; Start 07/19/16 at 09:00 Sertraline HCl (Zoloft) 25 mg DAILY PO Last administered on 07/21/16 08:42; Admin Dose 25 MG; Start 07/19/16 at 09:00 Ondansetron HCl (Zofran Inj) 4 mg Q6H PRN IV NAUSEA AND/OR VOMITING; Start 07/18 at 20:00 Acetaminophen (Tylenol Tab) 650 mg Q6H PRN PO PAIN LEVEL 1-3 OR FEVER; Start at 20:00 Acetaminophen (Tylenol Supp) 650 mg Q6H PRN [place] PAIN LEVEL 1-3 OR FEVER; Start 07/18/16 at 20:00 Acetaminophen/ Hydrocodone Bitart ([place] (5/325)) 1 tab Q6H PRN PO MODERATE PAIN LEVEL 4-6 Last administered on 07/20/16 19:59; Admin Dose 1 TAB; Start 07/18 at 20:00 Docusate Sodium (Colace) 100 mg Q12H PRN PO CONSTIPATION; Start 07/18/16 at 20: 00 Magnesium Hydroxide (Milk Of Mag) 30 ml DAILY PRN PO CONSTIPATION; Start at 20:00 Bisacodyl (Dulcolax) 5 mg DAILY PRN PO CONSTIPATION; Start 07/18/16 at 20:00 Pantoprazole 40 mg 40 mg DAILY@06 PO Last administered on 07/21/16 05:48; Admin Dose 40 MG; Start 07/19/16 at 06:00 Levofloxacin/ Dextrose (Levaquin 500mg/ D5W 100 ml (Pmx)) 100 ml @ 100 mls/hr Q24H IVPB Last administered on 07/20/16 19:58; Admin Dose 100 MLS/HR; Start 07/19/16 at 20:00 Furosemide (Lasix) 20 mg DAILY IV Last administered on 07/21/16 08:43; Admin Dose 20 MG; Start 07/21/16 at 09:00 SAMARIA LINO MD Jul 21, 2016 12:05
--- NOTE | 2016-07-21 15:38 | CONS ---
DATE OF ADMISSION: 07/18/2016 DATE OF CONSULTATION: 07/21/2016 PULMONARY FOLLOWUP REASON FOR CONSULTATION: Pleural effusion. Thank you, Dr. Smiley, for this consultation. HISTORY OF PRESENT ILLNESS: The patient underwent a thoracentesis this morning, with pleural fluid removed. He remains relatively stable, with no significant respiratory distress. He currently denie s any fever, chills, chest pain or palpitations. PHYSICAL EXAMINATION VITAL SIGNS: Temperature 98, pulse is 91, blood pressure 134/97, O2 saturation 96% on 3 L nasal can nula. NECK: Supple. No JVD or lymphadenopathy. CARDIAC EXAM: S1, S2. No added sounds or murmurs. CHEST: Diminished air entry bilaterally. ABDOMEN: Soft, nontender. No guarding or rebound. EXTREMITIES: No cyanosis, clubbing or edema. NEUROLOGIC: Generalized weakness. DIAGNOSTIC DATA: Chest x-ray shows moderate left pleural effusion present. IMPRESSION AND PLAN: Exudative pleural effusion removed from the left lung. He still has persistent pleural effusion present. Appears likely post-infection, given significant leukocytosis. The jeniffer ent will require further thoracentesis with removal of residual fluid. I will order and it will lik selvin be performed on Saturday. Dictated By: DERECK WILLIAM/ALTAF Conf#: [id number] DID#: [id number]
[2016-07-21] MEDS ORDERED: LIDOCAINE 1% (MPF) 5 ML VIAL ONE (18:30)
--- NOTE | 2016-07-21 19:00 | RADRPT ---
PROCEDURE: XR Chest. CLINICAL INDICATION: Post thoracentesis TECHNIQUE: Anterior chest x-ray. COMPARISON: 07/21/2016 at 1059 hours FINDINGS: There is moderate residual left pleural effusion. There is mild consolidation in the left lung base, unchanged The right lung is clear. There is no evidence of pneumothorax. The heart size is large. There is atherosclerotic calcification of the aorta. The cardiomediastina l silhouette is otherwise unremarkable. The soft tissues are normal. Osseous structures are unremarkable. IMPRESSION: 1. Interval left side thoracentesis, without evidence pneumothorax. 2. Moderate residual left pleural effusion despite drainage of 750 cc fluid. This is due to the pl eural effusion being loculated, as seen on prior CT chest.. Cardiothoracic surgical consultation is suggested. VATS may be needed for complete drainage of the effusion. RPTAT: QQ .Bi Turner MD, Date Time Electronically viewed and signed by .Bi Turner MD, on 07/21/2016 18:59 .M/
--- NOTE | 2016-07-21 19:01 | RADRPT ---
PROCEDURE: Ultrasound guided thoracentesis CLINICAL INDICATION: Pleural effusion TECHNIQUE: Multiple sonographic images were obtained through the patient's chest. A site in the lynette lynn's left lower chest was selected and marked ink pen. The area was prepped and draped in the [facility] sterile fashion. The skin and subcutaneous tissues were anesthetized with 10 cc of 1% lidocaine . A a 6-Fris[place] 10 cm long thoracentesis needle was advanced into the pleural space and the introduce r was connected to a vacuum drainage system. A total of 750 cc of frankly bloody fluid was drained. The patient tolerated the procedure well. The specimen was sent for laboratory evaluation. COMPARISON: Radiograph performed earlier the same day. FINDINGS: Anechoic fluid visualized in the chest cavity on ultrasound. IMPRESSION: 1. Successful ultrasound-guided thoracentesis without immediate complication. RPTAT: QQ .Bi Turner MD, Date Time Electronically viewed and signed by .Bi Turner MD, MD on 07/21/2016 19:01 .M/
[2016-07-21] MEDS: LEVOFLOXACIN 500MG/D5W (PMX) 100 ML IVPB SCH (20:00)
[2016-07-21 21:36] LABS: FLUID LD 653 U/L; FLUID TYPE FLUID
[2016-07-21 21:37] LABS: FLUID GLUCOSE 94 mg/dl; FLUID TOTAL PROTEIN 4.1 g/dl; FLUID TYPE FLUID
[2016-07-21 22:24] LABS: FLUID APPEARANCE BLOODY; FLUID TYPE PLEURAL
[2016-07-21 22:28] LABS: FLUID LYMPHOCYTES 50 %; FLUID MONOCYTES 36 %; FLUID NEUTROPHILS 5 %; FLUID RBC EST 4+; FLUID WBC'S 800 /cmm
[2016-07-22] VITALS (11 sets, daily range): BP systolic 112–139; BP diastolic 63–84; PULSE 75–85; RESP 17–20
[2016-07-22] MEDS: PANTOPRAZOLE (EC) 40 MG TAB PO SCH (06:24)
[2016-07-22] MEDS: FUROSEMIDE 20 MG INJ IV SCH ×2 (08:50→18:26)
[2016-07-22] MEDS: AMLODIPINE 2.5 MG TAB PO SCH (08:50)
[2016-07-22] MEDS: SERTRALINE 50 MG TAB PO SCH (08:50)
--- NOTE | 2016-07-22 15:32 | CONS ---
Date/Time of Note Date/Time of Note DATE: 07/22/16 TIME: 15:27 Consult Date/Type/Reason Admit Date/Time Jul 18, 2016 at 14:21 Initial Consult Date 07/20/16 Type of Consultation: Pulmonary Subjective Comfortable. No shortness of breath. Objective Vital Signs Date Time Temp Pulse Resp B/P Pulse Ox O2 Delivery O2 Flow Rate FiO2 07/22/16 13:12 85 07/22/16 12:46 98.0 18 139/63 98 07/22/16 08:10 Nasal Cannula 3.0 07/22/16 03:31 21 Intake and Output 07/21/16 07/21/16 07/22/16 15:00 23:00 07:00 Intake Total 1100 ml Balance 1100 ml PHYSICAL EXAMINATION VITAL SIGNS: as above. NECK: Supple. No JVD or lymphadenopathy. CARDIAC EXAM: S1, S2. No added sounds or murmurs. CHEST: Diminished air entry bilaterally. ABDOMEN: Soft, nontender. No guarding or rebound. EXTREMITIES: No cyanosis, clubbing or edema. NEUROLOGIC: Generalized weakness. Results/Medications Result Diagram: 07/20/16 0600 07/20/16 0600 Results 24 hrs Laboratory Tests Test 07/21/16 15:45 Body Fluid Appearance BLOODY Body Fluid Color RED Body Fluid Glucose 94 Body Fluid Lactate Dehydrogenase 653 Body Fluid Lymphocytes (%) 50 Body Fluid Monocytes % 36 Body Fluid Neutrophils % 5 Body Fluid Other Cells (%) Body Fluid RBC 4+ Body Fluid Total Protein 4.1 Body Fluid Type FLUID Body Fluid Volume 750.0 Body Fluid WBC 800 Medications Current Medications Acetaminophen (Tylenol Tab) 650 mg Q6H PRN PO PAIN AND OR ELEVATED TEMP; Start 07/18/16 at 19:00 Amlodipine Besylate (Norvasc) 2.5 mg DAILY PO Last administered on 07/22/16 08: 50; Admin Dose 2.5 MG; Start 07/19/16 at 09:00 Sertraline HCl (Zoloft) 25 mg DAILY PO Last administered on 07/22/16 08:50; Admin Dose 25 MG; Start 07/19/16 at 09:00 Ondansetron HCl (Zofran Inj) 4 mg Q6H PRN IV NAUSEA AND/OR VOMITING; Start 07/18 at 20:00 Acetaminophen (Tylenol Tab) 650 mg Q6H PRN PO PAIN LEVEL 1-3 OR FEVER; Start at 20:00 Acetaminophen (Tylenol Supp) 650 mg Q6H PRN [place] PAIN LEVEL 1-3 OR FEVER; Start 07/18/16 at 20:00 Acetaminophen/ Hydrocodone Bitart ([place] (5/325)) 1 tab Q6H PRN PO MODERATE PAIN LEVEL 4-6 Last administered on 07/20/16 19:59; Admin Dose 1 TAB; Start 07/18 at 20:00 Docusate Sodium (Colace) 100 mg Q12H PRN PO CONSTIPATION; Start 07/18/16 at 20: 00 Magnesium Hydroxide (Milk Of Mag) 30 ml DAILY PRN PO CONSTIPATION; Start at 20:00 Bisacodyl (Dulcolax) 5 mg DAILY PRN PO CONSTIPATION; Start 07/18/16 at 20:00 Pantoprazole 40 mg 40 mg DAILY@06 PO Last administered on 07/22/16 06:24; Admin Dose 40 MG; Start 07/19/16 at 06:00 Levofloxacin/ Dextrose (Levaquin 500mg/ D5W 100 ml (Pmx)) 100 ml @ 100 mls/hr Q24H IVPB Last administered on 07/21/16 20:00; Admin Dose 100 MLS/HR; Start 07/19/16 at 20:00 Furosemide (Lasix) 20 mg DAILY IV Last administered on 07/22/16 08:50; Admin Dose 20 MG; Start 07/21/16 at 09:00 Assessment/Plan Chief Complaint/Hosp Course IMPRESSION AND PLAN: 1. Exudative pleural effusion removed from the left lung. 2. He still has persistent pleural effusion present. 3. Appears likely post-infection, given significant leukocytosis. 4. The patient will require further thoracentesis with removal of residual fluid. repeat thora pending. Problems: DERECK ZAMORA MD, FCCP Jul 22, 2016 15:32
[2016-07-22] MEDS: LEVOFLOXACIN 500MG/D5W (PMX) 100 ML IVPB SCH (20:05)
--- NOTE | 2016-07-22 23:20 | PN ---
Date/Time of Note Date/Time of Note DATE: 07/22/16 TIME: 23:18 Assessment/Plan VTE Prophylaxis VTE Prophylaxis Intervention: other Lines/Catheters IV Catheter Type (from Nrs): Saline Lock Urinary Cath still in place: No Assessment/Plan Chief Complaint/Hosp Course IMPRESSION: 1. The patient has pleural effusion.+ 2. Lung infiltrate. 3. Hypertension. 4. Obesity. 5. The patient has incomplete database. 6 sys heart failure plan pulmononary/cardio thoracentesis Problems: Subjective 24 Hr Interval Summary Respiratory: no complaints Cardiovascular: no complaints Exam/Review of Systems Vital Signs Vitals Vital Signs Date Time Temp Pulse Resp B/P Pulse Ox O2 Delivery O2 Flow Rate FiO2 07/22/16 20:28 76 07/22/16 20:00 98.4 17 118/65 95 07/22/16 20:00 Nasal Cannula 3.0 07/22/16 16:09 21 Intake and Output 07/21/16 07/21/16 07/22/16 15:00 23:00 07:00 Intake Total 1100 ml Balance 1100 ml Exam Neck: supple Respiratory: diminished breath sounds Cardiovascular: regular rate and rhythm Gastrointestinal: soft Musculoskeletal: nl extremities to inspection Extremities: normal pulses Results Result Diagram: 07/20/16 0600 07/20/16 0600 Medications Medications Current Medications Acetaminophen (Tylenol Tab) 650 mg Q6H PRN PO PAIN AND OR ELEVATED TEMP; Start 07/18/16 at 19:00 Amlodipine Besylate (Norvasc) 2.5 mg DAILY PO Last administered on 07/22/16 08: 50; Admin Dose 2.5 MG; Start 07/19/16 at 09:00 Sertraline HCl (Zoloft) 25 mg DAILY PO Last administered on 07/22/16 08:50; Admin Dose 25 MG; Start 07/19/16 at 09:00 Ondansetron HCl (Zofran Inj) 4 mg Q6H PRN IV NAUSEA AND/OR VOMITING; Start 07/18 at 20:00 Acetaminophen (Tylenol Tab) 650 mg Q6H PRN PO PAIN LEVEL 1-3 OR FEVER; Start at 20:00 Acetaminophen (Tylenol Supp) 650 mg Q6H PRN [place] PAIN LEVEL 1-3 OR FEVER; Start 07/18/16 at 20:00 Acetaminophen/ Hydrocodone Bitart ([place] (5/325)) 1 tab Q6H PRN PO MODERATE PAIN LEVEL 4-6 Last administered on 07/20/16 19:59; Admin Dose 1 TAB; Start 07/18 at 20:00 Docusate Sodium (Colace) 100 mg Q12H PRN PO CONSTIPATION; Start 07/18/16 at 20: 00 Magnesium Hydroxide (Milk Of Mag) 30 ml DAILY PRN PO CONSTIPATION; Start at 20:00 Bisacodyl (Dulcolax) 5 mg DAILY PRN PO CONSTIPATION; Start 07/18/16 at 20:00 Pantoprazole 40 mg 40 mg DAILY@06 PO Last administered on 07/22/16 06:24; Admin Dose 40 MG; Start 07/19/16 at 06:00 Levofloxacin/ Dextrose (Levaquin 500mg/ D5W 100 ml (Pmx)) 100 ml @ 100 mls/hr Q24H IVPB Last administered on 07/22/16 20:05; Admin Dose 100 MLS/HR; Start 07/19/16 at 20:00 Furosemide (Lasix) 20 mg 06,12,18 IV Last administered on 07/22/16 18:26; Admin Dose 20 MG; Start 07/22/16 at 18:00 SAMARIA LINO MD Jul 22, 2016 23:20
[2016-07-23] VITALS (14 sets, daily range): BP systolic 108–157; BP diastolic 58–90; PULSE 73–87; RESP 18–20
[2016-07-23] MEDS: PANTOPRAZOLE (EC) 40 MG TAB PO SCH (05:47)
[2016-07-23] MEDS: FUROSEMIDE 20 MG INJ IV SCH ×3 (05:47→17:07)
[2016-07-23 06:50] LABS: BASOPHILS % 0.3 % (0.0-2.0); EOSINOPHILS # 0.2 10^3/ul (0.0-0.5); EOSINOPHILS % 2.3 % (0.0-7.0); HEMATOCRIT 42.6 % (42.0-52.0); HEMOGLOBIN 14.2 g/dl (14.0-18.0); LYMPHOCYTES # 1.5 10^3/ul (0.8-2.9); LYMPHOCYTES % 16.1 % (15.0-51.0); MEAN CORPUSCULAR HEMOGLOBIN 30.6 pg (29.0-33.0); MEAN CORPUSCULAR HGB CONC 33.3 g/dl (32.0-37.0); MEAN CORPUSCULAR VOLUME 91.9 fl (82.0-101.0); MONOCYTE # 0.8 10^3/ul (0.3-0.9); MONOCYTES % 8.8 % (0.0-11.0); NEUTROPHIL # 6.8 10^3/ul (1.6-7.5); NEUTROPHILS % 72.5 % (39.0-77.0); PLATELET COUNT 338 10^3/UL (140-440); RED BLOOD COUNT 4.64 10^6/ul (4.70-6.10); RED CELL DISTRIBUTION WIDTH 13.9 % (11.5-14.5); UNCORRECTED WBC 9.4 10^3/ul (4.8-10.8); WHITE BLOOD COUNT 9.4 10^3/ul (4.8-10.8)
[2016-07-23 06:55] LABS: CONDITION 1
[2016-07-23 06:58] LABS: ALBUMIN 3.2 g/dl (3.3-4.9)
[2016-07-23 06:59] LABS: POTASSIUM 3.7 mmol/L (3.5-5.1)
[2016-07-23 07:01] LABS: BILIRUBIN,INDIRECT 0.3 mg/dl (0-1.1); BILIRUBIN,TOTAL 0.3 mg/dl (0.2-1.3); CREATININE 1.19 mg/dl (0.61-1.24); TOTAL PROTEIN 6.4 g/dl (6.1-8.1)
[2016-07-23 07:02] LABS: CALCIUM 8.2 mg/dl (8.4-10.2)
[2016-07-23] MEDS: AMLODIPINE 2.5 MG TAB PO SCH (08:47)
[2016-07-23] MEDS: SERTRALINE 50 MG TAB PO SCH (08:47)
--- NOTE | 2016-07-23 09:59 | CONS ---
Date/Time of Note Date/Time of Note DATE: 07/23/16 TIME: 09:57 Assessment/Plan Assessment/Plan Additional Assessment/Plan Assessment and recommendations; 1. Patient admitted with shortness of breath discovered to have very large left pleural effusion status post 2 thoracentesis without any evidence of recurrent left pleural effusion based upon examination today. Next 2. Underlying cardiomyopathy. Continue current treatment. Observe for the next 24 hours for any evidence of recurrence of left pleural effusion. Meanwhile continue current treatment. Consultation Date/Type/Reason Admit Date/Time Jul 18, 2016 at 14:21 Initial Consult Date 07/20/16 Type of Consultation: Pulmonary 24 HR Interval Summary Free Text/Dictation Patient is doing very well. Denies any shortness of breath, chest pain, wheezing, cough or sputum production. Denies any fever, chills. General examination; elderly male, awake alert currently in no distress. Exam/Review of Systems Vital Signs Vitals Vital Signs Date Time Temp Pulse Resp B/P Pulse Ox O2 Delivery O2 Flow Rate FiO2 07/23/16 09:08 73 07/23/16 08:25 97.6 18 117/66 98 07/23/16 02:44 21 07/22/16 20:00 Nasal Cannula 3.0 Intake and Output 07/22/16 07/22/16 07/23/16 15:00 23:00 07:00 Intake Total 1020 ml 220 ml Output Total 1200 ml 450 ml Balance -180 ml -230 ml Exam HEENT examination; supple neck, no JVD. No lymphadenopathy. Pharynx is clear. Pupils are midsize. No neck masses. Chest examination; clear to auscultation bilaterally. S1-S2 audible. No murmurs. Regular rate and rhythm. Abdomen examination; protuberant, nontender, no organomegaly. Bowel sounds audible. Extremity examination; no peripheral edema. 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 Results Result Diagram: 07/23/16 0530 07/23/16 0530 Results 24 hrs Laboratory Tests Test 07/23/16 05:30 Alanine Aminotransferase (ALT/SGPT) 36 Albumin 3.2 L Albumin/Globulin Ratio 1.00 Alkaline Phosphatase 73 Anion Gap 13 Aspartate Amino Transf (AST/SGOT) 36 Basophils # 0.0 Basophils % 0.3 Blood Urea Nitrogen 27 H Calcium Level 8.2 L Carbon Dioxide Level 34 H Chloride Level 96 L Creatinine 1.19 Direct Bilirubin 0.00 Eosinophils # 0.2 Eosinophils % 2.3 Globulin 3.20 Glucose Level 89 Hematocrit 42.6 Hemoglobin 14.2 Indirect Bilirubin 0.3 Lymphocytes # 1.5 Lymphocytes % 16.1 Mean Corpuscular Hemoglobin 30.6 Mean Corpuscular Hemoglobin Concent 33.3 Mean Corpuscular Volume 91.9 Mean Platelet Volume 8.0 Monocytes # 0.8 Monocytes % 8.8 Neutrophils # 6.8 Neutrophils % 72.5 Nucleated Red Blood Cells # 0.0 Nucleated Red Blood Cells % 0.0 Platelet Count 338 Potassium Level 3.7 Red Blood Count 4.64 L Red Cell Distribution Width 13.9 Sodium Level 139 Total Bilirubin 0.3 Total Protein 6.4 White Blood Count 9.4 Medications Medications Current Medications Acetaminophen (Tylenol Tab) 650 mg Q6H PRN PO PAIN AND OR ELEVATED TEMP; Start 07/18/16 at 19:00 Amlodipine Besylate (Norvasc) 2.5 mg DAILY PO Last administered on 07/23/16 08: 47; Admin Dose 2.5 MG; Start 07/19/16 at 09:00 Sertraline HCl (Zoloft) 25 mg DAILY PO Last administered on 07/23/16 08:47; Admin Dose 25 MG; Start 07/19/16 at 09:00 Ondansetron HCl (Zofran Inj) 4 mg Q6H PRN IV NAUSEA AND/OR VOMITING; Start 07/18 at 20:00 Acetaminophen (Tylenol Tab) 650 mg Q6H PRN PO PAIN LEVEL 1-3 OR FEVER; Start at 20:00 Acetaminophen (Tylenol Supp) 650 mg Q6H PRN [place] PAIN LEVEL 1-3 OR FEVER; Start 07/18/16 at 20:00 Acetaminophen/ Hydrocodone Bitart ([place] (5/325)) 1 tab Q6H PRN PO MODERATE PAIN LEVEL 4-6 Last administered on 07/20/16 19:59; Admin Dose 1 TAB; Start 07/18 at 20:00 Docusate Sodium (Colace) 100 mg Q12H PRN PO CONSTIPATION; Start 07/18/16 at 20: 00 Magnesium Hydroxide (Milk Of Mag) 30 ml DAILY PRN PO CONSTIPATION; Start at 20:00 Bisacodyl (Dulcolax) 5 mg DAILY PRN PO CONSTIPATION; Start 07/18/16 at 20:00 Pantoprazole 40 mg 40 mg DAILY@06 PO Last administered on 07/23/16 05:47; Admin Dose 40 MG; Start 07/19/16 at 06:00 Levofloxacin/ Dextrose (Levaquin 500mg/ D5W 100 ml (Pmx)) 100 ml @ 100 mls/hr Q24H IVPB Last administered on 07/22/16 20:05; Admin Dose 100 MLS/HR; Start 07/19/16 at 20:00 Furosemide (Lasix) 20 mg 06,12,18 IV Last administered on 07/23/16 05:47; Admin Dose 20 MG; Start 07/22/16 at 18:00 ROSSY RIOS Jul 23, 2016 09:59
--- NOTE | 2016-07-23 15:17 | CONS ---
DATE OF ADMISSION: 07/18/2016 DATE OF CONSULTATION: 07/23/2016 TYPE OF CONSULTATION: Cardiology. REASON FOR CONSULTATION: Shortness of breath, assess for congestive heart failure. REQUESTING PHYSICIAN:. HISTORY OF PRESENT ILLNESS: Mr. Ibarra is an 80-year-old female with a history of hypertension, de pression, possible tachybrady syndrome who presented with complaints of shortness of breath and abdo sam pain. Initially upon arrival, temperature 97.5, blood pressure 187/95, pulse 107, respiratory rate 24, saturating 82%. LABORATORY DATA: The patient's labs, sodium 142, potassium 4.2, creatinine 1.0, BUN 17. T bilirubin of 0.1. BNP of 83.7, troponin negative. INR 0.94. White blood cell count 10.4, hemoglobin 13.8, p latelet count 327. ABG revealing a pH of 7.361, a PaO2 of 65, pCO2 of 59. Patient's initial chest x-ray revealed cardiomegaly with calcified atherosclerosis in the aorta, int erval decrease in left pleural effusion with improved aeration of the left lung, moderate residual p leural effusion with associated lower lobe infiltrates, small right pleural effusion and a chest CT head revealed large loculated left pleural effusion, hyperdensities in the small airways, coronary a rterial and aortic atherosclerotic calcifications. Since admit, the patient has undergone thoracent esis x2 on the and on with most chest x-ray today revealing moderate-sized left pleural effu tesfaye, probable compressive atelectasis on the left with the right lung being relatively clear. Jon tionally, the patient has undergone a 2D echo on the , interpreted by myself as having a depresse d left ventricular ejection fraction of about 30 to 35% with global hypokinesis, trace mitral and tr icuspid regurgitation. Of note, the patient has had a catheterization per chart 2009 at which time he had a decreased EF but had no significant coronary artery disease. PAST MEDICAL HISTORY: As above in HPI. MEDICATIONS CURRENTLY IN HOSPITAL: 1. Lasix 20 mg IV q.8h. 2. Levofloxacin IV daily. 3. Norvasc 2.5 mg daily. 4. Zoloft 25 mg daily. 5. P.r.n. Zofran. 6. P.r.n. Tylenol. 7. P.r.n. Archie. ALLERGIES: NO KNOWN DRUG ALLERGIES. SOCIAL HISTORY: No tobacco, ETOH or illicit drug use. FAMILY HISTORY: No history of sudden cardiac or early CAD. REVIEW OF SYSTEMS: As above in HPI. CONSTITUTIONAL: No fevers, chills. PULMONARY: Mild shortness of breath. CARDIOVASCULAR: Cardiomyopathy with decreased left ventricular ejection fraction. GASTROINTESTINAL: No vomiting. GENITOURINARY: No hematuria. MUSCULOSKELETAL: Degenerative joint disease. PSYCHIATRIC: The patient denies depression. NEUROLOGIC: No documented history of CVA. ENDOCRINE: No documented history of diabetes mellitus. PHYSICAL EXAMINATION: VITAL SIGNS: Temperature 98, blood pressure 122/60, pulse 70, respiratory rate 18, saturating 98%. GENERAL: The patient is alert, awake, no acute distress, complaint of shortness of breath. NECK: JVP approximately 9 cm water. CHEST: Fair movement throughout with mildly decreased breath sounds, right greater than left. HEART: Regular rate and rhythm. Normal S1, S2, I/ systolic murmur. ABDOMEN: Positive bowel sounds, soft. EXTREMITIES: No pitting edema, 1+ pulses bilaterally, posterior tibial. LABORATORIES: As above in HPI with most recently from today, sodium 139, potassium 3.7, creatinine 1.1, BUN of 27. White blood cell count 9.4, hemoglobin 14.2, platelet count 338. IMAGING STUDIES: As above in HPI with chest x-ray from the 4th revealing a moderate-sized left pleu ral effusion with probable compressive atelectasis. ECG from the 1st revealed normal sinus rhythm rate of 94 with left axis deviation, left ventricular hypertrophy with voltage criteria, septal Q's and secondary repolarization abnormalities. IMPRESSION: 1. Cardiomyopathy with decreased left ventricular ejection fraction lasting approximately 30-35% by echocardiogram this admit. 2. Abnormal electrocardiogram with anteroseptal Q's, assess for acute coronary syndrome. 3. Pleural effusions status post thoracentesis, followup studies. Assess for trans exudative etiolo gy. 4. Hypertension, under reasonable control. 5. Ongoing tobacco usage. 6. Possible pneumonia. RECOMMENDATIONS: 1. At this time, would maintain patient on telemetry monitoring to follow rhythm and rate control c losely. 2. Complete a rule out for myocardial infarction to show if patient's EKG abnormalities and decreas ed EF are not due to any recent acute coronary syndromes such as an acute myocardial infarction. 3. Will continue the patient's Lasix diuresis and initiate patient on low dose CONNOR inhibitor afterl oad reduction. Following creatinine and potassium closely and then thereafter low dose beta blockad e for treatment of cardiomyopathy. 4. Continue the patient's antibiotics and follow up all culture data. 5. Will consider patient for stress testing to further evaluate for the etiology of this patient's cardiomyopathy with decreased left ventricular ejection fraction. Thank you for allowing me to take part in the care of this patient. I will continue to follow very closely with you with further recommendations to be made as the patient progresses through the [facility] clinical course. Dictated By: SARAH CARRASCO/ALTAF Conf#: [id number] DID#: [id number] CC: SAMARIA LINO MD;*End*
[2016-07-23] MEDS: LEVOFLOXACIN 500 MG TAB PO SCH (17:07)
--- NOTE | 2016-07-23 19:15 | RADRPT ---
PROCEDURE: XR Chest. CLINICAL INDICATION: Follow-up evaluation pleural effusion TECHNIQUE: PA and lateral views of the chest were obtained. COMPARISON: Chest x-ray 07/21/2016 FINDINGS: The trachea central bronchi are patent. The cardiomediastinal silhouette is mildly enlarged. Compr essive atelectasis of the left lower lobe has slightly decreased, the right lung remains clear. Ranjith nting of the left costophrenic angle is consistent with a small to moderate pleural effusion or poss ibly pleural parenchymal reaction, not significantly changed, some fluid within the major fissures p resent. There is no pulmonary vascular congestion. Thoracic spondylosis is moderate without eviden ce of acute osseous abnormality. Calcification is visible within the aorta RPTAT:HJJR IMPRESSION: Slight interval improvement in aeration of the left lower lobe consistent with decreasing left pleur al effusion and compressive atelectasis as compared to 07/21/2016. Physician Nicole Date Time Electronically viewed and signed by Physician Nicole on 07/23/2016 19:15 /
--- NOTE | 2016-07-23 22:24 | PN ---
Date/Time of Note Date/Time of Note DATE: 07/23/16 TIME: 22:23 Assessment/Plan VTE Prophylaxis VTE Prophylaxis Intervention: other Lines/Catheters IV C[facility]ter Type (from [facility]): [facility] Urinary Cath still in place: No Assessment/Plan Chief Complaint/Hosp Course IMPRESSION: 1. The patient has pleural effusion.+better 2. Lung infiltrate. 3. Hypertension. 4. Obesity. 5. The patient has incomplete database. 6 sys heart failure plan pulmononary/cardio thoracentesis antibiotic Problems: Subjective 24 Hr Interval Summary Respiratory: shortness of breath (better) Cardiovascular: no complaints Gastrointestinal: no complaints Exam/Review of Systems Vital Signs Vitals Vital Signs Date Time Temp Pulse Resp B/P Pulse Ox O2 Delivery O2 Flow Rate FiO2 07/23/16 21:55 2.0 28 07/23/16 20:42 81 07/23/16 20:24 98.2 20 144/59 98 07/23/16 09:00 Nasal Cannula Intake and Output 07/22/16 07/22/16 07/23/16 15:00 23:00 07:00 Intake Total 1020 ml 220 ml Output Total 1200 ml 450 ml Balance -180 ml -230 ml Exam Respiratory: diminished breath sounds Cardiovascular: regular rate and rhythm Gastrointestinal: soft Musculoskeletal: nl extremities to inspection Extremities: normal pulses Results Result Diagram: 07/23/16 0530 07/23/16 0530 Results 24 hrs Laboratory Tests Test 07/23/16 05:30 07/23/16 18:06 Alanine Aminotransferase (ALT/SGPT) 36 Albumin 3.2 L Albumin/Globulin Ratio 1.00 Alkaline Phosphatase 73 Anion Gap 13 Aspartate Amino Transf (AST/SGOT) 36 Basophils # 0.0 Basophils % 0.3 Blood Urea Nitrogen 27 H Calcium Level 8.2 L Carbon Dioxide Level 34 H Chloride Level 96 L Creatinine 1.19 Direct Bilirubin 0.00 Eosinophils # 0.2 Eosinophils % 2.3 Globulin 3.20 Glucose Level 89 Hematocrit 42.6 Hemoglobin 14.2 Indirect Bilirubin 0.3 Lymphocytes # 1.5 Lymphocytes % 16.1 Mean Corpuscular Hemoglobin 30.6 Mean Corpuscular Hemoglobin Concent 33.3 Mean Corpuscular Volume 91.9 Mean Platelet Volume 8.0 Monocytes # 0.8 Monocytes % 8.8 Neutrophils # 6.8 Neutrophils % 72.5 Nucleated Red Blood Cells # 0.0 Nucleated Red Blood Cells % 0.0 Platelet Count 338 Potassium Level 3.7 Red Blood Count 4.64 L Red Cell Distribution Width 13.9 Sodium Level 139 Total Bilirubin 0.3 Total Protein 6.4 White Blood Count 9.4 Troponin I 0.049 Medications Medications Current Medications Acetaminophen (Tylenol Tab) 650 mg Q6H PRN PO PAIN AND OR ELEVATED TEMP; Start 07/18/16 at 19:00 Amlodipine Besylate (Norvasc) 2.5 mg DAILY PO Last administered on 07/23/16 08: 47; Admin Dose 2.5 MG; Start 07/19/16 at 09:00 Sertraline HCl (Zoloft) 25 mg DAILY PO Last administered on 07/23/16 08:47; Admin Dose 25 MG; Start 07/19/16 at 09:00 Ondansetron HCl (Zofran Inj) 4 mg Q6H PRN IV NAUSEA AND/OR VOMITING; Start 07/18 at 20:00 Acetaminophen (Tylenol Tab) 650 mg Q6H PRN PO PAIN LEVEL 1-3 OR FEVER; Start at 20:00 Acetaminophen (Tylenol Supp) 650 mg Q6H PRN [place] PAIN LEVEL 1-3 OR FEVER; Start 07/18/16 at 20:00 Acetaminophen/ Hydrocodone Bitart ([place] (5/325)) 1 tab Q6H PRN PO MODERATE PAIN LEVEL 4-6 Last administered on 07/20/16 19:59; Admin Dose 1 TAB; Start 07/18 at 20:00 Docusate Sodium (Colace) 100 mg Q12H PRN PO CONSTIPATION; Start 07/18/16 at 20: 00 Magnesium Hydroxide (Milk Of Mag) 30 ml DAILY PRN PO CONSTIPATION; Start at 20:00 Bisacodyl (Dulcolax) 5 mg DAILY PRN PO CONSTIPATION; Start 07/18/16 at 20:00 Pantoprazole (Protonix Tab) 40 mg DAILY@06 PO Last administered on 07/23/16 05: 47; Admin Dose 40 MG; Start 07/19/16 at 06:00 Furosemide (Lasix) 20 mg 06,12,18 IV Last administered on 07/23/16 17:07; Admin Dose 20 MG; Start 07/22/16 at 18:00 Lisinopril (Zestril) 5 mg DAILY PO ; Start 07/24/16 at 09:00 Carvedilol (Coreg) 3.125 mg BID PO Last administered on 07/23/16 20:25; Admin Dose 3.125 MG; Start 07/23/16 at 21:00 Levofloxacin (Levaquin) 500 mg DAILY@06 PO Last administered on 07/23/16 17:07 ; Admin Dose 500 MG; Start 07/23/16 at 18:00 SAMARIA LINO MD Jul 23, 2016 22:24
[2016-07-24] VITALS (10 sets, daily range): BP systolic 96–120; BP diastolic 54–64; PULSE 65–74; RESP 15–20
[2016-07-24] MEDS: PANTOPRAZOLE (EC) 40 MG TAB PO SCH (05:08)
[2016-07-24] MEDS: LEVOFLOXACIN 500 MG TAB PO SCH (05:08)
[2016-07-24] MEDS: FUROSEMIDE 20 MG INJ IV SCH ×3 (05:09→18:00)
[2016-07-24] MEDS: AMLODIPINE 2.5 MG TAB PO SCH (09:12)
[2016-07-24] MEDS: LISINOPRIL 5 MG TAB PO SCH (09:12)
[2016-07-24] MEDS: SERTRALINE 50 MG TAB PO SCH (09:19)
--- NOTE | 2016-07-24 09:49 | CONS ---
Date/Time of Note Date/Time of Note DATE: 07/24/16 TIME: 09:41 Assessment/Plan Assessment/Plan Additional Assessment/Plan Assessment and recommendations; 1. Patient admitted with shortness of breath due to CHF with recurrent left pleural effusion status post 2 thoracentesis with significant improvement in overall status. Based upon examination there is currently no evidence to suggest recurrence of pleural effusion. Next 2. Cardiomyopathy. Clinically compensated next Continue current treatment. Consultation Date/Type/Reason Admit Date/Time Jul 18, 2016 at 14:21 Initial Consult Date 07/20/16 Type of Consultation: Pulmonary 24 HR Interval Summary Free Text/Dictation Patient condition is stable. Denies any shortness of breath, any chest pain, coughing, wheezing. Any fever or chills. General examination; elderly male currently in no distress. Exam/Review of Systems Vital Signs Vitals Vital Signs Date Time Temp Pulse Resp B/P Pulse Ox O2 Delivery O2 Flow Rate FiO2 07/24/16 08:34 69 07/24/16 07:09 97.5 19 120/64 92 07/24/16 06:13 2.0 07/23/16 21:55 28 07/23/16 20:25 Nasal Cannula Intake and Output 07/23/16 07/23/16 07/24/16 15:00 23:00 07:00 Intake Total 700 ml 480 ml Output Total 900 ml 600 ml Balance -200 ml -120 ml Exam H EENT examination; supple neck, no JVD. No lymphadenopathy. No thyromegaly. No neck bruits. Chest examination; image breath on lung bases bilaterally but clear to auscultation. S1-S2 audible. No murmurs. Regular rate and rhythm. Abdomen examination; soft, bowel sounds audible, nontender. Extremity examination; no peripheral edema. 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 Results Result Diagram: 07/23/16 0530 07/23/16 0530 Results 24 hrs Laboratory Tests Test 07/23/16 18:06 07/24/16 00:33 Troponin I 0.049 0.057 Medications Medications Current Medications Acetaminophen (Tylenol Tab) 650 mg Q6H PRN PO PAIN AND OR ELEVATED TEMP; Start 07/18/16 at 19:00 Amlodipine Besylate (Norvasc) 2.5 mg DAILY PO Last administered on 07/24/16t 09: 12; Admin Dose 2.5 MG; Start 07/19/16 at 09:00 Sertraline HCl (Zoloft) 25 mg DAILY PO Last administered on 07/24/16 09:19; Admin Dose 25 MG; Start 07/19/16 at 09:00 Ondansetron HCl (Zofran Inj) 4 mg Q6H PRN IV NAUSEA AND/OR VOMITING; Start 07/18 at 20:00 Acetaminophen (Tylenol Tab) 650 mg Q6H PRN PO PAIN LEVEL 1-3 OR FEVER; Start at 20:00 Acetaminophen (Tylenol Supp) 650 mg Q6H PRN [place] PAIN LEVEL 1-3 OR FEVER; Start 07/18/16 at 20:00 Acetaminophen/ Hydrocodone Bitart ([place] (5/325)) 1 tab Q6H PRN PO MODERATE PAIN LEVEL 4-6 Last administered on 07/20/16 19:59; Admin Dose 1 TAB; Start 07/18 at 20:00 Docusate Sodium (Colace) 100 mg Q12H PRN PO CONSTIPATION; Start 07/18/16 at 20: 00 Magnesium Hydroxide (Milk Of Mag) 30 ml DAILY PRN PO CONSTIPATION; Start at 20:00 Bisacodyl (Dulcolax) 5 mg DAILY PRN PO CONSTIPATION; Start 07/18/16 at 20:00 Pantoprazole (Protonix Tab) 40 mg DAILY@06 PO Last administered on 07/24/16 05: 08; Admin Dose 40 MG; Start 07/19/16 at 06:00 Furosemide (Lasix) 20 mg 06,12,18 IV Last administered on 07/24/16 05:09; Admin Dose 20 MG; Start 07/22/16 at 18:00 Lisinopril (Zestril) 5 mg DAILY PO Last administered on 07/24/16 09:12; Admin Dose 5 MG; Start 07/24/16 at 09:00 Carvedilol (Coreg) 3.125 mg BID PO Last administered on 07/24/16 09:13; Admin Dose 3.125 MG; Start 07/23/16 at 21:00 Levofloxacin (Levaquin) 500 mg DAILY@06 PO Last administered on 07/24/16 05:08 ; Admin Dose 500 MG; Start 07/23/16 at 18:00 ROSSY RIOS Jul 24, 2016 09:49
--- NOTE | 2016-07-24 10:52 | CONS ---
Date/Time of Note Date/Time of Note DATE: 07/24/16 TIME: 10:50 Assessment/Plan Assessment/Plan Additional Assessment/Plan 1. Cardiomyopathy with decreased left ventricular ejection fraction lasting approximately 30-35% by echocardiogram this admit - acute on chronic CHF - con' t gentle diuresis and afterload reduction. Pt feels better today. 2. Abnormal electrocardiogram with anteroseptal Q's, assess for acute coronary syndrome - no CP noted now. 3. Pleural effusions status post thoracentesis, followup studies. Assess for trans exudative etiology. Pulmonary team follow. 4. Hypertension, under reasonable control- con;t to adjust Rx as needed. 5. Ongoing tobacco usage. 6. Possible pneumonia - on anti-bx Consultation Date/Type/Reason Admit Date/Time Jul 18, 2016 at 14:21 Initial Consult Date 07/20/16 Type of Consultation: Pulmonary 24 HR Interval Summary Free Text/Dictation NO acute change - pt feels better - no significantectopy on tele - will adjust Rx as needed. ROS: No fever, no chills, no nausea, no vomiting, no diarrhea/constipation No recent weight changes No chest pain, no PND, no orthopnea No dizziness, blurred vision No thirst, no heat or cold intolerance Exam/Review of Systems Vital Signs Vitals Vital Signs Date Time Temp Pulse Resp B/P Pulse Ox O2 Delivery O2 Flow Rate FiO2 07/24/16 09:40 95 2.0 07/24/16 08:34 69 07/24/16 07:09 97.5 19 120/64 07/23/16 21:55 28 07/23/16 20:25 Nasal Cannula Intake and Output 07/23/16 07/23/16 07/24/16 15:00 23:00 07:00 Intake Total 700 ml 480 ml Output Total 900 ml 600 ml Balance -200 ml -120 ml Exam General: WN/WD/NAD, AOx 3 [place] HEENT: Unicetric/atraumatic/EOMI (follow commands) NECK: JVD elevated 8 cm , no thyromegaly Lymph: no lymphadenopathy HEART: regular with no S3, II/ systolic murmur at apex LUNGS: Coarse sounds, decreaesd sound at base ABD: soft, NT, ND, +BS : Intact Neuro: non focal SKIN: chronic changes EXT: trace edema Results Result Diagram: 07/23/16 0530 07/23/16 0530 Results 24 hrs Laboratory Tests Test 07/23/16 18:06 07/24/16 00:33 Troponin I 0.049 0.057 Medications Medications Current Medications Acetaminophen (Tylenol Tab) 650 mg Q6H PRN PO PAIN AND OR ELEVATED TEMP; Start 07/18/16 at 19:00 Amlodipine Besylate (Norvasc) 2.5 mg DAILY PO Last administered on 07/24/16 09: 12; Admin Dose 2.5 MG; Start 07/19/16 at 09:00 Sertraline HCl (Zoloft) 25 mg DAILY PO Last administered on 07/24/16 09:19; Admin Dose 25 MG; Start 07/19/16 at 09:00 Ondansetron HCl (Zofran Inj) 4 mg Q6H PRN IV NAUSEA AND/OR VOMITING; Start 07/18 at 20:00 Acetaminophen (Tylenol Tab) 650 mg Q6H PRN PO PAIN LEVEL 1-3 OR FEVER; Start at 20:00 Acetaminophen (Tylenol Supp) 650 mg Q6H PRN [place] PAIN LEVEL 1-3 OR FEVER; Start 07/18/16 at 20:00 Acetaminophen/ Hydrocodone Bitart ([place] (5/325)) 1 tab Q6H PRN PO MODERATE PAIN LEVEL 4-6 Last administered on 07/20/16 19:59; Admin Dose 1 TAB; Start 07/18 at 20:00 Docusate Sodium (Colace) 100 mg Q12H PRN PO CONSTIPATION; Start 07/18/16 at 20: 00 Magnesium Hydroxide (Milk Of Mag) 30 ml DAILY PRN PO CONSTIPATION; Start at 20:00 Bisacodyl (Dulcolax) 5 mg DAILY PRN PO CONSTIPATION; Start 07/18/16 at 20:00 Pantoprazole (Protonix Tab) 40 mg DAILY@06 PO Last administered on 07/24/16 05: 08; Admin Dose 40 MG; Start 07/19/16 at 06:00 Furosemide (Lasix) 20 mg 06,12,18 IV Last administered on 07/24/16 05:09; Admin Dose 20 MG; Start 07/22/16 at 18:00 Lisinopril (Zestril) 5 mg DAILY PO Last administered on 07/24/16 09:12; Admin Dose 5 MG; Start 07/24/16 at 09:00 Carvedilol (Coreg) 3.125 mg BID PO Last administered on 07/24/16 09:13; Admin Dose 3.125 MG; Start 07/23/16 at 21:00 Levofloxacin (Levaquin) 500 mg DAILY@06 PO Last administered on 07/24/16 05:08 ; Admin Dose 500 MG; Start 07/23/16 at 18:00 DELVIS KNIGHT MD Jul 24, 2016 10:52
--- NOTE | 2016-07-24 13:00 | PQ ---
Date/Time of Note Date/Time of Note DATE: 07/24/16 TIME: 12:53 Physician Query Documentation Clarification Dear Dr. Lino, A review of the medical record found a need for documentation clarification. progress note reflects a documentation of "systolic heart failure" Cardiac consult - "decreased left ventricular ejection fraction lasting approximately 30-35% by echocardiogram this admit - acute on chronic CHF" Please clarify/ specify being treated. 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 You may also document your response on your progress notes. Thank you for your time. Luis Bell RN, BSN, CCS, CCDS Clinical Insurance Agency Manager Health Information Management, CDI and Coding Services [phone] Room [address] [place] [phone] [id number] LUIS BELL Jul 24, 2016 13:00 SAMARIA LINO MD Jul 24, 2016 13:18
--- NOTE | 2016-07-24 14:28 | PN ---
Date/Time of Note Date/Time of Note DATE: 07/24/16 TIME: 14:27 Assessment/Plan VTE Prophylaxis VTE Prophylaxis Intervention: other Lines/Catheters IV C[facility]ter Type (from [facility]): Saline Lock Urinary Cath still in place: No Assessment/Plan Chief Complaint/Hosp Course IMPRESSION: 1. The patient has pleural effusion.+better 2. Lung infiltrate. 3. Hypertension. 4. Obesity. 5. The patient has incomplete database. 6 sys heart failure plan pulmononary/cardio thoracentesis antibiotic home soon once cleared by cardio Problems: Subjective 24 Hr Interval Summary Gastrointestinal: no complaints Genitourinary: no complaints Exam/Review of Systems Vital Signs Vitals Vital Signs Date Time Temp Pulse Resp B/P Pulse Ox O2 Delivery O2 Flow Rate FiO2 07/24/16 12:51 71 07/24/16 11:12 97.7 19 120/59 92 07/24/16 09:40 2.0 07/24/16 08:30 Nasal Cannula 07/23/16 21:55 28 Intake and Output 07/23/16 07/23/16 07/24/16 15:00 23:00 07:00 Intake Total 700 ml 480 ml Output Total 900 ml 600 ml Balance -200 ml -120 ml Exam Respiratory: clear to auscultation Cardiovascular: regular rate and rhythm Gastrointestinal: soft Musculoskeletal: nl extremities to inspection Extremities: normal pulses Results Result Diagram: 07/23/16 0530 07/23/16 0530 Results 24 hrs Laboratory Tests Test 07/23/16 18:06 07/24/16 00:33 Troponin I 0.049 0.057 Medications Medications Current Medications Acetaminophen (Tylenol Tab) 650 mg Q6H PRN PO PAIN AND OR ELEVATED TEMP; Start 07/18/16 at 19:00 Amlodipine Besylate (Norvasc) 2.5 mg DAILY PO Last administered on 07/24/16 09: 12; Admin Dose 2.5 MG; Start 07/19/16 at 09:00 Sertraline HCl (Zoloft) 25 mg DAILY PO Last administered on 07/24/16 09:19; Admin Dose 25 MG; Start 07/19/16 at 09:00 Ondansetron HCl (Zofran Inj) 4 mg Q6H PRN IV NAUSEA AND/OR VOMITING; Start 07/18 at 20:00 Acetaminophen (Tylenol Tab) 650 mg Q6H PRN PO PAIN LEVEL 1-3 OR FEVER; Start at 20:00 Acetaminophen (Tylenol Supp) 650 mg Q6H PRN [place] PAIN LEVEL 1-3 OR FEVER; Start 07/18/16 at 20:00 Acetaminophen/ Hydrocodone Bitart ([place] (5/325)) 1 tab Q6H PRN PO MODERATE PAIN LEVEL 4-6 Last administered on 07/20/16 19:59; Admin Dose 1 TAB; Start 07/18 at 20:00 Docusate Sodium (Colace) 100 mg Q12H PRN PO CONSTIPATION; Start 07/18/16 at 20: 00 Magnesium Hydroxide (Milk Of Mag) 30 ml DAILY PRN PO CONSTIPATION; Start at 20:00 Bisacodyl (Dulcolax) 5 mg DAILY PRN PO CONSTIPATION; Start 07/18/16 at 20:00 Pantoprazole (Protonix Tab) 40 mg DAILY@06 PO Last administered on 07/24/16 05: 08; Admin Dose 40 MG; Start 07/19/16 at 06:00 Furosemide (Lasix) 20 mg 06,12,18 IV Last administered on 07/24/16 05:09; Admin Dose 20 MG; Start 07/22/16 at 18:00 Lisinopril (Zestril) 5 mg DAILY PO Last administered on 07/24/16 09:12; Admin Dose 5 MG; Start 07/24/16 at 09:00 Carvedilol (Coreg) 3.125 mg BID PO Last administered on 07/24/16 09:13; Admin Dose 3.125 MG; Start 07/23/16 at 21:00 Levofloxacin (Levaquin) 500 mg DAILY@06 PO Last administered on 07/24/16 05:08 ; Admin Dose 500 MG; Start 07/23/16 at 18:00 SAMARIA LINO MD Jul 24, 2016 14:27
[2016-07-25] VITALS (13 sets, daily range): BP systolic 88–124; BP diastolic 57–66; PULSE 64–97; RESP 15–20
[2016-07-25] MEDS: PANTOPRAZOLE (EC) 40 MG TAB PO SCH (05:28)
[2016-07-25] MEDS: LEVOFLOXACIN 500 MG TAB PO SCH (05:28)
[2016-07-25] MEDS: FUROSEMIDE 20 MG INJ IV SCH ×3 (05:39→18:00)
[2016-07-25] MEDS: AMLODIPINE 2.5 MG TAB PO SCH (09:00)
[2016-07-25] MEDS: LISINOPRIL 5 MG TAB PO SCH (09:00)
[2016-07-25] MEDS: SERTRALINE 50 MG TAB PO SCH (09:00)
--- NOTE | 2016-07-25 10:33 | PDOCDIS ---
Discharge Instructions CONDITION Patient Condition: Stable HOME CARE INSTRUCTIONS: Special Diet: CARDIAC DIET ACTIVITY: Activity Restrictions: Slowly Increase Activity FOLLOW UP/APPOINTMENTS Appointments see own pcp [address] shabana quiles 1wk SAMARIA LINO MD Jul 25, 2016 10:33
[2016-07-25] MEDS ORDERED: LISI-313 PO (10:35)
[2016-07-25] MEDS ORDERED: ALBU8.5H3 INH (10:35)
[2016-07-25] MEDS ORDERED: LEVO500T72 PO (10:35)
[2016-07-25] MEDS ORDERED: CARV3.1260 PO (10:35)
--- NOTE | 2016-07-25 10:35 | CONS ---
Date/Time of Note Date/Time of Note DATE: 07/25/16 TIME: 10:33 Assessment/Plan Assessment/Plan Additional Assessment/Plan Assessment and recommendations; 1. Patient admitted with left pleural effusion status post 2 thoracentesis procedures. 2. Underlying cardia myopathy. 3. Diabetes. 4. Hypertension. The current treatment. Patient can be discharged home. He will need to have a cardiac stress test on outpatient basis. Consultation Date/Type/Reason Admit Date/Time Jul 18, 2016 at 14:21 Initial Consult Date 07/20/16 Type of Consultation: Pulmonary 24 HR Interval Summary Free Text/Dictation Patient is doing fairly well. He is awake alert denies any shortness of breath , chest pain, wheezing, sputum production. Denies any fever or chills. General examination; elderly male, currently in no distress awake and alert. Exam/Review of Systems Vital Signs Vitals Vital Signs Date Time Temp Pulse Resp B/P Pulse Ox O2 Delivery O2 Flow Rate FiO2 07/25/16 10:22 76 07/25/16 08:02 97.5 19 88/59 91 07/25/16 04:36 2.0 07/24/16 20:30 Nasal Cannula 07/23/16 21:55 28 Intake and Output 07/24/16 07/24/16 07/25/16 15:00 23:00 07:00 Intake Total 400 ml 240 ml Output Total 250 ml Balance 400 ml -10 ml Results HEENT examination; supple neck, positive JVD. No lymphadenopathy. Midsize pupils reactive to light bilaterally. No thyromegaly. No neck bruits. Chest examination; upper lobes are clear to auscultation with minimally decreased breath sounds in lung bases bilaterally with scattered crackles. S1- S2 audible, no murmurs, regular rate and rhythm. Abdomen examination; soft, protuberant. No organomegaly. Nontender. Bowel sounds audible. Extremity examination; no peripheral edema. 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 Result Diagram: 07/23/1652907/23/16529 Medications Medications Current Medications Acetaminophen (Tylenol Tab) 650 mg Q6H PRN PO PAIN AND OR ELEVATED TEMP; Start 07/18/16 at 19:00 Amlodipine Besylate (Norvasc) 2.5 mg DAILY PO Last administered on 07/24/16t 09: 12; Admin Dose 2.5 MG; Start 07/19/16 at 09:00 Sertraline HCl (Zoloft) 25 mg DAILY PO Last administered on 07/24/16 09:19; Admin Dose 25 MG; Start 07/19/16 at 09:00 Ondansetron HCl (Zofran Inj) 4 mg Q6H PRN IV NAUSEA AND/OR VOMITING; Start 07/18 at 20:00 Acetaminophen (Tylenol Tab) 650 mg Q6H PRN PO PAIN LEVEL 1-3 OR FEVER; Start at 20:00 Acetaminophen (Tylenol Supp) 650 mg Q6H PRN [place] PAIN LEVEL 1-3 OR FEVER; Start 07/18/16 at 20:00 Acetaminophen/ Hydrocodone Bitart ([place] (5/325)) 1 tab Q6H PRN PO MODERATE PAIN LEVEL 4-6 Last administered on 07/20/16 19:59; Admin Dose 1 TAB; Start 07/18 at 20:00 Docusate Sodium (Colace) 100 mg Q12H PRN PO CONSTIPATION; Start 07/18/16 at 20: 00 Magnesium Hydroxide (Milk Of Mag) 30 ml DAILY PRN PO CONSTIPATION; Start at 20:00 Bisacodyl (Dulcolax) 5 mg DAILY PRN PO CONSTIPATION; Start 07/18/16 at 20:00 Pantoprazole (Protonix Tab) 40 mg DAILY@06 PO Last administered on 07/25/16 05: 28; Admin Dose 40 MG; Start 07/19/16 at 06:00 Furosemide (Lasix) 20 mg 06,12,18 IV Last administered on 07/25/16 05:39; Admin Dose 20 MG; Start 07/22/16 at 18:00 Lisinopril (Zestril) 5 mg DAILY PO Last administered on 07/24/16 09:12; Admin Dose 5 MG; Start 07/24/16 at 09:00 Carvedilol (Coreg) 3.125 mg BID PO Last administered on 07/24/16 09:13; Admin Dose 3.125 MG; Start 07/23/16 at 21:00 Levofloxacin (Levaquin) 500 mg DAILY@06 PO Last administered on 07/25/16 05:28 ; Admin Dose 500 MG; Start 07/23/16 at 18:00 ROSSY RIOSb 8, 2017 10:35
--- NOTE | 2016-07-25 10:38 | PQ ---
Date/Time of Note Date/Time of Note DATE: 07/25/16 TIME: 10:35 Physician Query Documentation Clarification Dear Dr. Mike, A review of the medical record found a need for documentation clarification. progress note reflects a documentation of " Cardiomyopathy with decreased left ventricular ejection fraction lasting approximately 30-35% by echocardiogram this admit - acute on chronic CHF - con't gentle diuresis and afterload reduction" Please clarify/ specify the type of CHF being treated. 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 You may also document your response on your progress notes. Thank you for your time. Luis Bell RN, BSN, CCS, CCDS Clinical Ctc Operator Health Information Management, CDI and Coding Services [phone] Room # [id number] - [address]~ [id number] LUIS BELL Jul 25, 2016 10:38
--- NOTE | 2016-07-25 13:07 | CONS ---
Date/Time of Note Date/Time of Note DATE: 07/25/16 TIME: 13:03 Assessment/Plan Assessment/Plan Chief Complaint/Hosp Course IMPRESSION: 1. Cardiomyopathy with decreased left ventricular ejection fraction lasting approximately 30-35% by echocardiogram this admit. 2. Abnormal electrocardiogram with anteroseptal Q's, assess for acute coronary syndrome.-negative troponin x 3 3. Pleural effusions status post thoracentesis, followup studies. Assess for trans exudative etiology. 4. Hypertension-currently borderline hotn 5. Ongoing tobacco usage. 6. Possible pneumonia. Recc: -Tele -serial ecg's -D/C norvasc -Continue BB/ACEI and follow BP closely -Follow volume status closely -outpatient stress test Problems: Consultation Date/Type/Reason Admit Date/Time Jul 18, 2016 at 14:21 Initial Consult Date 07/20/16 Type of Consultation: Cardiology Reason for Consultation Cardiomyopathy Referring Provider: SAMARIA LINO Exam/Review of Systems Vital Signs Vitals Vital Signs Date Time Temp Pulse Resp B/P Pulse Ox O2 Delivery O2 Flow Rate FiO2 07/25/16 12:23 82 07/25/16 11:51 98.0 16 94/59 93 07/25/16 08:30 Nasal Cannula 2.0 07/23/16 21:55 28 Intake and Output 07/24/16 07/24/16 07/25/16 15:00 23:00 07:00 Intake Total 400 ml 240 ml Output Total 250 ml Balance 400 ml -10 ml Exam Review of Systems: CONSTITUTIONAL: No fevers, chills. PULMONARY: No sob CARDIOVASCULAR: No chest pain/palpitations GASTROINTESTINAL: No nausea/vomiting. GENITOURINARY: No hematuria/dysuria. MUSCULOSKELETAL: No myagias/arthalgias. PSYCHIATRIC: The patient denies depression. NEUROLOGIC: No weakness Constitutional: alert, oriented Psych: no complaints Head: normocephalic ENMT: mucosa pink and moist Neck: jvd (9 cm water), supple Respiratory: clear to auscultation Cardiovascular: regular rate and rhythm Gastrointestinal: non-tender, soft Musculoskeletal: muscle tone (normal) Extremities: edema (trace/B) Neurological: other (No focal deficits) Results Result Diagram: 07/23/1630 07/23/16 0530 Medications Medications Current Medications Acetaminophen (Tylenol Tab) 650 mg Q6H PRN PO PAIN AND OR ELEVATED TEMP; Start 07/18/16 at 19:00 Amlodipine Besylate (Norvasc) 2.5 mg DAILY PO Last administered on 07/24/16 09: 12; Admin Dose 2.5 MG; Start 07/19/16 at 09:00 Sertraline HCl (Zoloft) 25 mg DAILY PO Last administered on 07/24/16 09:19; Admin Dose 25 MG; Start 07/19/16 at 09:00 Ondansetron HCl (Zofran Inj) 4 mg Q6H PRN IV NAUSEA AND/OR VOMITING; Start 07/18 at 20:00 Acetaminophen (Tylenol Tab) 650 mg Q6H PRN PO PAIN LEVEL 1-3 OR FEVER; Start at 20:00 Acetaminophen (Tylenol Supp) 650 mg Q6H PRN [place] PAIN LEVEL 1-3 OR FEVER; Start 07/18/16 at 20:00 Acetaminophen/ Hydrocodone Bitart ([place] (5/325)) 1 tab Q6H PRN PO MODERATE PAIN LEVEL 4-6 Last administered on 07/20/16 19:59; Admin Dose 1 TAB; Start 07/18 at 20:00 Docusate Sodium (Colace) 100 mg Q12H PRN PO CONSTIPATION; Start 07/18/16 at 20: 00 Magnesium Hydroxide (Milk Of Mag) 30 ml DAILY PRN PO CONSTIPATION; Start at 20:00 Bisacodyl (Dulcolax) 5 mg DAILY PRN PO CONSTIPATION; Start 07/18/16 at 20:00 Pantoprazole (Protonix Tab) 40 mg DAILY@06 PO Last administered on 07/25/16 05: 28; Admin Dose 40 MG; Start 07/19/16 at 06:00 Furosemide (Lasix) 20 mg 06,12,18 IV Last administered on 07/25/16 05:39; Admin Dose 20 MG; Start 07/22/16 at 18:00 Lisinopril (Zestril) 5 mg DAILY PO Last administered on 07/24/16 09:12; Admin Dose 5 MG; Start 07/24/16 at 09:00 Carvedilol (Coreg) 3.125 mg BID PO Last administered on 07/24/16 09:13; Admin Dose 3.125 MG; Start 07/23/16 at 21:00 Levofloxacin (Levaquin) 500 mg DAILY@06 PO Last administered on 07/25/16 05:28 ; Admin Dose 500 MG; Start 07/23/16 at 18:00 SARAH PERKINS Jul 25, 2016 13:07
--- NOTE | 2016-07-25 18:25 | PN ---
Date/Time of Note Date/Time of Note DATE: 07/25/16 TIME: 18:24 Assessment/Plan VTE Prophylaxis VTE Prophylaxis Intervention: other Lines/Catheters IV [facility] Type [facility]from [facility] Saline Lock Urinary Cath still in place: No Assessment/Plan Chief Complaint/Hosp Course IMPRESSION: 1. The patient has pleural effusion.+better 2. Lung infiltrate. 3. Hypertension. 4. Obesity. 5. The patient has incomplete database. 6 sys heart failure plan pulmononary/cardio thoracentesis antibiotic home Problems: Subjective 24 Hr Interval Summary Respiratory: no complaints Cardiovascular: no complaints Gastrointestinal: no complaints Exam/Review of Systems Vital Signs Vitals Vital Signs Date Time Temp Pulse Resp B/P Pulse Ox O2 Delivery O2 Flow Rate FiO2 07/25/16 17:10 77 07/25/16 16:57 2.0 07/25/16 15:48 98.0 16 122/59 91 07/25/16 08:30 Nasal Cannula 07/23/16 21:55 28 Intake and Output 07/24/16 07/24/16 07/25/16 15:00 23:00 07:00 Intake Total 400 ml 240 ml Output Total 250 ml Balance 400 ml -10 ml Exam Respiratory: clear to auscultation Cardiovascular: regular rate and rhythm Gastrointestinal: soft Musculoskeletal: nl extremities to inspection Results Result Diagram: 07/23/1652907/23/16 0530 Medications Medications Current Medications Acetaminophen (Tylenol Tab) 650 mg Q6H PRN PO PAIN AND OR ELEVATED TEMP; Start 07/18/16 at 19:00 Amlodipine Besylate (Norvasc) 2.5 mg DAILY PO Last administered on 07/24/16 09: 12; Admin Dose 2.5 MG; Start 07/19/16 at 09:00 Sertraline HCl (Zoloft) 25 mg DAILY PO Last administered on 07/24/16 09:19; Admin Dose 25 MG; Start 07/19/16 at 09:00 Ondansetron HCl (Zofran Inj) 4 mg Q6H PRN IV NAUSEA AND/OR VOMITING; Start 07/18 at 20:00 Acetaminophen (Tylenol Tab) 650 mg Q6H PRN PO PAIN LEVEL 1-3 OR FEVER; Start at 20:00 Acetaminophen (Tylenol Supp) 650 mg Q6H PRN [place] PAIN LEVEL 1-3 OR FEVER; Start 07/18/16 at 20:00 Acetaminophen/ Hydrocodone Bitart ([place] (5/325)) 1 tab Q6H PRN PO MODERATE PAIN LEVEL 4-6 Last administered on 07/20/16 19:59; Admin Dose 1 TAB; Start 07/18 at 20:00 Docusate Sodium (Colace) 100 mg Q12H PRN PO CONSTIPATION; Start 07/18/16 at 20: 00 Magnesium Hydroxide (Milk Of Mag) 30 ml DAILY PRN PO CONSTIPATION; Start at 20:00 Bisacodyl (Dulcolax) 5 mg DAILY PRN PO CONSTIPATION; Start 07/18/16 at 20:00 Pantoprazole (Protonix Tab) 40 mg DAILY@06 PO Last administered on 07/25/16 05: 28; Admin Dose 40 MG; Start 07/19/16 at 06:00 Furosemide (Lasix) 20 mg 06,12,18 IV Last administered on 07/25/16 05:39; Admin Dose 20 MG; Start 07/22/16 at 18:00 Lisinopril (Zestril) 5 mg DAILY PO Last administered on 07/24/16 09:12; Admin Dose 5 MG; Start 07/24/16 at 09:00 Carvedilol (Coreg) 3.125 mg BID PO Last administered on 07/24/16 09:13; Admin Dose 3.125 MG; Start 07/23/16 at 21:00 Levofloxacin (Levaquin) 500 mg DAILY@06 PO Last administered on 07/25/16 05:28 ; Admin Dose 500 MG; Start 07/23/16 at 18:00 SAMARIA LINO MD Jul 25, 2016 18:25
== END 2016-07-25 21:00 | disposition home or self-care (01) | DRG 291 ==
LOC: E/R 09:07 → TEL 14:21
PROVIDERS: ADMIT Internal Medicine Nephrology; ATTEND Internal Medicine Nephrology
PROC: 0W9B3ZZ Drainage of Left Pleural Cavity, Percutaneous Approach (ICD-10-PCS; principal; 2016-07-18)
PROC: 0W9B3ZZ Drainage of Left Pleural Cavity, Percutaneous Approach (ICD-10-PCS; 2016-07-21)
DX: I50.23 Acute on chronic systolic (congestive) heart failure (principal); J18.9 Pneumonia, unspecified organism; J90 Pleural effusion, not elsewhere classified; I42.9 Cardiomyopathy, unspecified; F17.200 Nicotine dependence, unspecified, uncomplicated; I10 Essential (primary) hypertension; E66.9 Obesity, unspecified; Z68.33 Body mass index [BMI] 33.0-33.9, adult; G47.33 Obstructive sleep apnea (adult) (pediatric); J40 Bronchitis, not specified as acute or chronic; I11.0 Hypertensive heart disease with heart failure
CPT/HCPCS: 32555; 36415; 36600; 71010; 71020; 71250; 80048; 80053; 82042; 82803; 82945; 82962; 83615; 83880; 83986; 84157; 84484; 85025; 85610; 85730; 87070; 87102; 87116; 88104; 88305; 89050; 90686; 93005; 93306; 94664; 96374; J1940; J1100; J1956

== ENCOUNTER 2016-09-26 04:51 | Inpatient (IN) | payer MEDICARE, MEDICAID ==
[~2016-09-26] VITALS: Ht 177.8 cm; Wt 95.0 kg
[~2016-09-26 04:51] MED LIST changes: -ACYC400T2 PO; +ALBU8.5H3 INH; +AMLO2.5T78 PO; -ATEN1TAB; -AZIT250T94 PO; -BUSP10TA2; +CARV3.1260 PO; -CEFU500T45 PO; +LEVO500T72 PO; +LISI-313 PO; +SERT25TA83 PO
[2016-09-26 04:55] VITALS: Ht 177.8 cm; Wt 95.0 kg
[2016-09-26] MEDS ORDERED: ASPIRIN 325 MG TAB PO ONE (05:07)
[2016-09-26] MEDS ORDERED: NITROGLYCERIN 2% 1 GM OINT PKT TD ONE (05:08)
[2016-09-26 05:31] LABS: ADD SCAN DIFF NO
[2016-09-26 05:45] LABS: BASOPHILS % 0.3 % (0.0-2.0); EOSINOPHILS # 0.2 10^3/ul (0.0-0.5); EOSINOPHILS % 2.6 % (0.0-7.0); HEMATOCRIT 49.5 % (42.0-52.0); HEMOGLOBIN 15.7 g/dl (14.0-18.0); LYMPHOCYTES # 1.8 10^3/ul (0.8-2.9); LYMPHOCYTES % 25.7 % (15.0-51.0); MEAN CORPUSCULAR HEMOGLOBIN 29.2 pg (29.0-33.0); MEAN CORPUSCULAR HGB CONC 31.7 g/dl (32.0-37.0); MEAN CORPUSCULAR VOLUME 92.2 fl (82.0-101.0); MEAN PLATELET VOLUME 10.1 fl (7.4-10.4); MONOCYTE # 0.7 10^3/ul (0.3-0.9); MONOCYTES % 9.6 % (0.0-11.0); NEUTROPHIL # 4.2 10^3/ul (1.6-7.5); NEUTROPHILS % 61.7 % (39.0-77.0); PLATELET COUNT 208 10^3/UL (140-415); RED BLOOD COUNT 5.37 10^6/ul (4.70-6.10); RED CELL DISTRIBUTION WIDTH 13.8 % (11.5-14.5); WHITE BLOOD COUNT 6.9 10^3/ul (4.8-10.8)
[2016-09-26 05:47] LABS: POTASSIUM 3.9 mmol/L (3.5-5.1)
[2016-09-26 05:50] LABS: CREATININE 1.08 mg/dl (0.61-1.24)
[2016-09-26] MEDS ORDERED: NITROGLYCERIN 2% 1 GM OINT PKT TD STA (05:50)
[2016-09-26] MEDS ORDERED: FUROSEMIDE 40 MG INJ IV STA (05:50)
[2016-09-26 05:51] LABS: CALCIUM 8.8 mg/dl (8.4-10.2)
[2016-09-26 05:59] LABS: INR 0.94; PROTIME 12.6 Sec (12.2-14.2)
[2016-09-26 06:00] LABS: PARTIAL THROMBOPLASTIN TIME 30.9 Sec (25.0-35.0)
[2016-09-26 06:04] LABS: TROPONIN-I 0.056 ng/ml (0.00-0.12)
--- NOTE | 2016-09-26 06:07 | RADRPT ---
PROCEDURE: Chest. CLINICAL INDICATION: Chest pain. TECHNIQUE: Single frontal view of the chest was obtained. COMPARISON: 07/23/2016. FINDINGS: The cardiac silhouette is magnified. The aortic arch is calcified. There is mild left basilar atel ectasis/infiltrate and small pleural effusion. There is no pneumothorax. IMPRESSION: Mild left basilar atelectasis/infiltrate and small pleural effusion, decreased compared with the елена or study. Aortic atherosclerosis. .Jonny Garcia MD, MD Date Time Electronically viewed and signed by .Jonny Garcia MD, on 09/26/2016 06:07 .T/
[2016-09-26] MEDS ORDERED: IPRATROPIUM (NEB) 0.5 MG/2.5 ML AMP NEB ONE (06:23)
[2016-09-26] MEDS ORDERED: ALBUTEROL 0.083% (NEB) 2.5 MG/3 ML AMP NEB ONE (06:25)
[2016-09-26] MEDS ORDERED: METHYLPREDNISOLONE 125 MG INJ IV ONE (06:26)
--- NOTE | 2016-09-26 06:36 | ERA ---
ER Documentation Chief Complaint Date/Time DATE: 09/26/16 TIME: 06:29 Chief Complaint intermittent chest pain x 2 days worst this morning HPI This is an 80-year-old [place]-speaking male with a known history of congestive heart failure and coronary artery disease with a recent stress test that was performed by Dr. Lovett. The results were relayed to the patient and he indicates that it was suggested he undergoes a cardiac catheterization which she has not yet scheduled. The patient presents to the emergency department today complaining of intermittent chest pressure that has been present for the past 48 hours. He states that the pain will be a pressure-like sensation that does not radiate to the neck arm back or jaw. The pain is 8 out of 10 in intensity. The patient indicates that this morning, just prior to arrival the chest pressure worsened to 10 out of 10 in intensity with associated symptoms of nausea and diaphoresis which prompted him to come to the emergency department to be further evaluated. The patient has also stated that his shortness of breath has worsened. Indicates he used to be able to walk roughly 10 steps before becoming short of breath but now is short of breath at rest. He denies any recent travel or prolonged immobilization. He has no swelling of his lower extremities. He states his shortness of breath is similar to his previous CHF exacerbations. The patient smokes tobacco but denies any alcohol use. The patient's last hospitalization was July 24 for roughly 6 days, 3 months prior to arrival for pneumonia. The patient this time denies a productive or nonproductive cough and has not had any fever shaking or chills ROS All systems reviewed and are negative except as per history of present illness. Medications Home Meds Active Scripts Albuterol Sulfate* (Proair HFA*) 8.5 Gm Hfa.aer.ad, 2 PUFF INH Q4, #1 INHALER Prov:SAMARIA LINO MD 07/25/16 Lisinopril* (Lisinopril*) 5 Mg Tablet, 5 MG PO DAILY for 28 Days, TAB Prov:SAMARIA LINO MD 07/25/16 Levofloxacin* (Levaquin*) 500 Mg Tablet, 500 MG PO DAILY@06 for 7 Days, TAB Prov:SAMARIA LINO MD 07/25/16 Carvedilol* (Carvedilol*) 3.125 Mg Tablet, 3.125 MG PO BID for 28 Days, #30 TAB Prov:SAMARIA LINO MD 07/25/16 Reported Medications Sertraline Hcl* (Sertraline Hcl*) 25 Mg Tablet, 25 MG PO DAILY, #30 TAB 07/18/16 Amlodipine Besylate* (Amlodipine Besylate*) 2.5 Mg Tablet, 2.5 MG PO DAILY, #30 TAB 07/18/16 Allergies Allergies: Coded Allergies: No Known Drug Allergy (Verified Allergy, Mild, 07/07/16) PMhx/Soc Medical and Surgical Hx: pt denies Surgical Hx History of Surgery: No Anesthesia Reaction: No Hx Neurological Disorder: No Hx Respiratory Disorders: No Hx Cardiac Disorders: Yes (chf, htn, hld) Hx Psychiatric Problems: No Hx Miscellaneous Medical Probl: No Hx Alcohol Use: No Hx Substance Use: No Hx Tobacco Use: Yes Smoking Status: Current every day smoker Physical Exam Vitals Vital Signs Date Time Temp Pulse Resp B/P Pulse Ox O2 Delivery O2 Flow Rate FiO2 09/26/16 05:14 Nasal Cannula 09/26/16 04:55 98.0 87 20 230/118 96 Physical Exam Constitutional:Well-developed. Well-nourished. HEENT:Normocephalic. Atraumatic.Pupils were equal round reactive to light. Moist mucous membranes.No tonsillar exudates. Neck: No nuchal rigidity. No lymphadenopathy. No posterior cervical spine tenderness or step-offs. Respiratory: Not using accessory muscles of respiration. Bilateral rhonchi. No wheezing on end auscultation bilaterally. Cardiovascular: Regular rate regular rhythm.No murmurs. No rubs were appreciated.S1, S2 normal. Distal pulses are palpable 2+ bilaterally. GI: Abdomen was soft. Nontender. Non Distended. No pulsatile abdominal masses or bruits. No rebound. No guarding. Bowel sounds were present and normal. Muscle skeletal: Full range of motion of both the upper and lower extremities bilaterally.Normal muscle tone.No assymetrical calf tenderness or swelling. Skin: No petechia, no purpura. No lesions on the palms or the soles of the feet. No maculopapular rash. NEURO: Patient was alert, awake, orientated x3.No facial droop. Gait observed and normal with no ataxia.Speech had regular rate and rhythm. No focal neurological deficits. Result Diagram: 09/26/1651909/26/16519 Results 24 hrs Laboratory Tests Test 09/26/16 05:20 White Blood Count 6.910^3/ul Red Blood Count 5.3710^6/ul Hemoglobin 15.7g/dl Hematocrit 49.5% Mean Corpuscular Volume 92.2fl Mean Corpuscular Hemoglobin 29.2pg Mean Corpuscular Hemoglobin Concent 31.7g/dl Red Cell Distribution Width 13.8% Platelet Count 02276^3/UL Mean Platelet Volume 10.1fl Neutrophils % 61.7% Lymphocytes % 25.7% Monocytes % 9.6% Eosinophils % 2.6% Basophils % 0.3% Nucleated Red Blood Cells % 0.0/100WBC Neutrophils # 4.210^3/ul Lymphocytes # 1.810^3/ul Monocytes # 0.710^3/ul Eosinophils # 0.210^3/ul Basophils # 0.010^3/ul Nucleated Red Blood Cells # 0.010^3/ul Prothrombin Time 12.6Sec Prothrombin Time Ratio 1.0 INR International Normalized Ratio 0.94 Activated Partial Thromboplast Time 30.9Sec Sodium Level 141mmol/L Potassium Level 3.9mmol/L Chloride Level 102mmol/L Carbon Dioxide Level 30mmol/L Anion Gap 13 Blood Urea Nitrogen 16mg/dl Creatinine 1.08mg/dl Glucose Level 109mg/dl Calcium Level 8.8mg/dl Troponin I 0.056ng/ml Current Medications Medications (Trade) Dose Ordered Sig/Scott Route PRN Reason Start Time Stop Time Status Last Admin Dose Admin Aspirin (Aspirin) 325 mg ONCE ONCE PO 09/26/16 05:07 09/26/16 05:08 DC 09/26/16 05:35 Nitroglycerin (Nitroglycerin 2% Oint) 1 inch ONCE ONCE TD 09/26/16 05:08 09/26/16 05:09 DC 09/26/16 05:35 Nitroglycerin (Nitroglycerin 2% Oint) 1 inch ONCE STAT TD 09/26/16 05:50 09/26/16 05:51 DC Furosemide (Lasix) 40 mg ONCE STAT IV 09/26/16 05:50 09/26/16 05:51 DC 09/26/16 05:56 Albuterol (Proventil 0.083% (Neb)) 5 mg ONCE ONCE NEB 09/26/16 06:25 09/26/16 06:26 DC Ipratropium [place] (Atrovent 0.02% (Neb)) 0.5 mg ONCE ONCE NEB 09/26/16 06:23 09/26/16 06:26 DC Methylprednisolone Sodium Succinate (Solu-Medrol) 125 mg ONCE ONCE IV 09/26/16 06:26 09/26/16 06:27 DC 09/26/16 06:31 Procedures/MDM The patient presented to the emergency department with chest pain. My clinical evaluation and workup was to distinguish minor causes of chest pain from acute life threatening conditions such as myocardial infarction, pulmonary embolism, aortic dissection, esophageal rupture, cardiac tamponade. The patient was placed on a clinical research monitor and continuous pulse oximetry. IV access established by nursing staff. The patient received 325 mg of aspirin and nitroglycerin paste. He stated his chest pain improved to 3 out of 10 in intensity. Chest radiograph for and reviewed by myself showed no pulmonary vascular congestion and indicated the following: Mild left basilar atelectasis/infiltrate and small pleural effusion, decreased compared with the prior study. Aortic atherosclerosis. 12 Lead EKG tracing ordered and reviewed by myself showed: Normal sinus rhythm of 72 bpm and no arrhythmia. ME interval normal. QRS duration was widened at 138 ms with left ventricular hypertrophy. No ST segment elevation No ST segment depression. T-wave inversion in the lateral leads V5 V6 This patient also presented to the emergency department with severely elevated blood pressure. My differential diagnosis included but was not limited to conditions that could end-organ damage such as acute coronary syndrome, acute pulmonary edema, aortic dissection, subarachnoid hemorrhage, intracerebral hemorrhage, cerebral infarction, withdrawal syndromes from beta blockers, or states of catecholamine excess such as pheochromocytoma or drug intoxication. The patient had uncontrolled hypertensive with end-organ damage to suggest hypertensive emergency. The treatment goal was immediate reduction of the mean arterial blood pressure. This was done in a controlled, graded manor, using improvement of the patient's condition as a guide. The patient's blood pressure reduction did not exceed more then a 20-25 percent reduction within the first 30 to 60 minutes. The patient was put on a clinical research monitor, continuous pulse oximetry, and IV access was established by nursing staff. The antihypertensive agent used was nitroglycerin. My clinical suspicion was low for pulmonary embolism and I did feel the patient shortness of breath was likely an exacerbation of his congestive heart failure as his BNP was elevated. I will place a consult to his senior contracts administrator Dr. Lovett to inform him that the patient will be admitted in serious condition with an anticipated stay of greater than 2 midnights to undergo serial 12-lead EKG tracings and cardiac set of enzymes. The patient will be admitted to Dr. Lino. Critical Care: Time: 50 minutes Treatments/Evaluations: Close monitoring and treatment of unstable vital signs, cardiorespiratory, and neurologic status, while maintaining tight balance of fluid, respiratory, and cardiac interventions. Time does not include performing any of the above billable procedures. Departure Diagnosis: Primary Impression: Chest pain Qualified Code: R07.9 - Chest pain, unspecified type Additional Impressions: Congestive heart failure Qualified Code: I50.9 - Acute on chronic congestive heart failure, unspecified congestive heart failure type Hypertensive emergency Condition: Serious RANDY OCASIO Sep 26, 2016 06:36
[2016-09-26] MEDS ORDERED: ONDANSETRON 4 MG INJ IV PRN (07:00)
[2016-09-26] MEDS ORDERED: FUROSEMIDE 40 MG INJ IV ONE (08:00)
[2016-09-26] MEDS ORDERED: FURO20TA3 PO (08:40)
[2016-09-26] MEDS ORDERED: CARV6.2579 PO (08:40)
[2016-09-26] MEDS ORDERED: ASPI81TA3 PO (08:40)
[2016-09-26] MEDS ORDERED: LISI10TA2 PO (08:40)
[2016-09-26 10:53] VITALS: TEMP 98
[2016-09-26 12:06] VITALS: PULSE 74
[2016-09-26 12:07] VITALS: BP 177/84; RESP 18
[2016-09-26 12:36] LABS: TROPONIN-I 0.029 ng/ml (0.00-0.12)
[2016-09-26 12:37] LABS: CK-MB 1.51 ng/ml (0.0-2.4)
[2016-09-26] MEDS ORDERED: ACETAMINOPHEN 650MG/20.3ML CUP PO PRN (13:00)
[2016-09-26] MEDS: ALBUTEROL HFA 8 GM INHALER INH SCH ×2 (13:00→17:00)
[2016-09-26] MEDS ORDERED: NITROGLYCERIN (SL) 0.4 MG TAB SL PRN (13:00)
[2016-09-26 15:50] VITALS: BP 131/72; RESP 20
[2016-09-26 16:10] VITALS: PULSE 83
--- NOTE | 2016-09-26 19:03 | QN ---
Documentation Comment [id number] SAMARIA LINO MD Sep 26, 2016 19:03
--- NOTE | 2016-09-26 19:46 | HP ---
DATE OF ADMISSION: 09/26/2016 HISTORY OF PRESENT ILLNESS: The patient is an 80-year-old male who has a history of congestive heart failure, CAD. The patient in the past was noted to have CAD. Was supposed to undergo cardiac catheterization and he did not want that. The patient now presents complaining of intermittent chest pressure and shortness of breath. The patient, in the ER, was seen and discussed with Dr. Lagos and patient is supposed to be admitted to the hospital. The patient's blood pressure earlier was recorded 230/118. WBC 6.9, hematocrit 49.5. Sodium 141, potassium 3.9, BUN 16, creatinine 1.09. The patient's laboratory data reviewed. The patient is being admitted for further management. The patient received in the ER, aspirin, nitroglycerin, Lasix, albuterol, Atrovent, and methylprednisolone. The patient's EKG is reported as sinus rhythm with nonspecific ST-T changes. PAST MEDICAL HISTORY: Positive for pleural effusion status post thoracentesis, lung infiltrate, hypertension, obesity, systolic heart failure, status post thoracentesis. ALLERGY HISTORY: HE IS DENYING. FAMILY HISTORY: Denies. SOCIAL HISTORY: Positive for smoking. MEDICATION HISTORY: At home, patient is on: 1. Albuterol. 2. Aspirin. 3. Coreg. 4. Lasix. REVIEW OF SYSTEMS: HEENT: Unremarkable. CARDIOVASCULAR: Short of breath. He was complaining of chest pain earlier. ABDOMEN: Unremarkable. EXTREMITIES: No swelling. CENTRAL NERVOUS SYSTEM: Unremarkable. PHYSICAL EXAMINATION: GENERAL: The patient is awake and alert. VITAL SIGNS: Pulse 84, blood pressure is 131/72. HEAD: Atraumatic, normocephalic. Pupils equal, reactive to light. NECK: Supple. No JVD. LUNGS: ____. Decreased air entry with few rhonchi at both bases. CARDIOVASCULAR: S1, S2 is normal. Systolic murmur noted at the apex. ABDOMEN: Soft. Bowel sounds present. No palpable mass or hepatosplenomegaly. EXTREMITIES: There is no cyanosis, clubbing, or edema. CENTRAL NERVOUS SYSTEM: The patient is awake, alert, anxious. No focal deficit. LABORATORY DATA: Hematocrit 49.5. The patient's BNP 950. Chest x-ray shows patient has mild left basilar atelectasis, infiltrate with small pleural effusion. IMPRESSION: 1. Short of breath. 2. Chest pain, rule out ischemic heart disease. 3. Hypertension. 4. Elevated BNP. 5. History of pleural effusions. 6. History of thoracentesis. 7. History of noncompliance. PLAN: To continue home medication. Troponin will be sent. Oxygen, aspirin, nitro p.r.n. Diuretic. Blood pressure control. Cardiology consultation. Orders were done. Dictated By: SAMARIA LINO MD BS/NTS Conf#: [id number] DID#: [id number] MTDD
[2016-09-26 19:51] LABS: CK-MB 1.46 ng/ml (0.0-2.4)
[2016-09-26 19:52] LABS: TROPONIN-I 0.025 ng/ml (0.00-0.12)
[2016-09-26] MEDS ORDERED: LORAZEPAM 1 MG TAB PO SCH (21:00)
[2016-09-26] MEDS ORDERED: ISOSORBIDE DINITRATE 10 MG TAB PO SCH (21:00)
[2016-09-26] MEDS ORDERED: LISINOPRIL 10 MG TAB PO SCH (21:00)
[2016-09-27] MEDS ORDERED: PANTOPRAZOLE (EC) 40 MG TAB PO SCH (06:00)
--- NOTE | 2016-09-27 08:00 | CONS ---
DATE OF ADMISSION: 09/26/2016 DATE OF CONSULTATION: 09/26/2016 REASON FOR CONSULTATION: Cardiomyopathy with decreased left ventricular ejection fraction. Chest p ain. REQUESTING PHYSICIAN: Marc Lino MD. HISTORY OF PRESENT ILLNESS: Mr. Ibarra is an 80-year-old male with history of cardiomyopathy, decr eased left ventricular ejection fraction, last approximately 30 to 35%, hypertension, ongoing tobacc o usage, recurrent pleural effusions status post recurrent thoracentesis, who had recently had an ou tpatient stress test in the office revealing mild inferior ischemia with decreased EF of approximate ly 38% by stress. The patient was to be scheduled for outpatient stress test. Patient now presents with complaints of substernal chest pain, shortness of breath. The patient's chest pain is somewha t poorly described, worse with exertional activities. VITAL SIGNS: Upon arrival, temperature 97.9, blood pressure markedly elevated 230/118, pulse 87, r espiratory rate 20, saturating 96%. LABORATORIES: Revealed a white count of 6.9, hemoglobin ____.7, platelet count 208. Sodium 141, po tassium 3.9, creatinine of 1.0, BUN 16. Troponin negative. BNP of 950. INR 0.94. Patient underwe nt a chest x-ray revealing mild left basilar atelectasis, infiltrate and small pleural effusions. T he patient's electrocardiogram revealed normal sinus rhythm of 83 with a left axis deviation, left v entricular pressure of ____ and nonspecific ST and T abnormalities. Patient subsequently admitted t o the floor and since admit to the floor, denies ongoing chest pain and had a second negative tropon in. The patient was then placed on oral antihypertensives with some downtrending of systolic blood pressure, though continued to remain elevated. PAST MEDICAL HISTORY: As above in HPI. MEDICATIONS CURRENTLY IN HOSPITAL: 1. Aspirin 81 mg daily. 2. Lasix 20 mg daily. 3. Zestril 10 mg daily. 4. Protonix 40 mg daily. 5. Carvedilol 6.25 mg p.o. b.i.d. 6. Albuterol p.r.n. 7. Tylenol p.r.n. 8. Sublingual nitroglycerin p.r.n. ALLERGIES: NO KNOWN DRUG ALLERGIES. SOCIAL HISTORY: No tobacco, ETOH or illicit drug use. FAMILY HISTORY: No history of sudden cardiac or early CAD. REVIEW OF SYSTEMS: As above in HPI. CONSTITUTIONAL: No fevers, chills. PULMONARY: Positive shortness of breath. CARDIOVASCULAR: Congestive heart failure. GASTROINTESTINAL: No vomiting. GENITOURINARY: No hematuria. MUSCULOSKELETAL: Degenerative joint disease. PSYCHIATRIC: The patient denies depression. NEUROLOGIC: No documented history of CVA. PHYSICAL EXAMINATION VITAL SIGNS: Temperature 97.2, blood pressure 177/84, pulse 75, respiratory rate 18, saturating 97% . GENERAL: The patient is alert, awake, in no acute distress. NECK: JVP approximately 9 cm of water. CHEST: Decreased breath sounds at bases bilaterally. HEART: Regular rate and rhythm. Normal S1, S2, I/ systolic murmur, nondisplaced PMI. ABDOMEN: Positive bowel sounds, soft. EXTREMITIES: No pitting edema, 1+ pulses bilaterally, posterior tibial. LABORATORIES: As above in HPI. Since admit, patient had a second troponin return negative for 2 ne gative troponins. IMAGING STUDIES: As above in HPI. No further imaging studies for my review at this time. IMPRESSION: 1. Chest pain, assess for acute coronary syndrome. 2. History of recent abnormal stress test outpatient, inferior ischemia. 3. Cardiomyopathy with decreased left ventricular ejection fraction, last approximately 35% by echo and stress test July 2016 and August 2016. 4. Hypertension, uncontrolled. 5. ____Coronary artery disease. RECOMMENDATIONS: 1, Congestive heart failure, systolic, acute on chronic. 2. At this time, would maintain the patient on telemetry monitoring to follow rhythm and rate close ly. 3. Complete patient's rule out for myocardial infarction to ensure this patient's chest pain was no t due to an acute coronary syndrome such as acute myocardial infarction. 4. We will continue the patient's carvedilol for now, but given prior bradyarrhythmias, would consi lilly decreasing the dose to 3.125 and will increase the patient's Zestril to improve afterload reduct ion and start patient on oral nitrates and follow symptomatology. 5. Continue the patient's gentle Lasix diuresis. 6. Continue the patient's aspirin. 7. Will consider a cardiac catheterization in this patient once the patient has been hemodynamicall y optimized. Thank you for allowing me to take part in the care of this patient. I will continue to follow along very closely with you with recommendations to be made as the patient progresses through his [facility] clinical course. Dictated By: SARAH CARRASCO/ALTAF Conf#: [id number] DID#: [id number] CC: MARC LINO MD;*EndCC*
[2016-09-27] MEDS ORDERED: LISINOPRIL 10 MG TAB PO SCH (09:00)
[2016-09-27] MEDS ORDERED: ASPIRIN 81 MG TAB PO SCH (09:00)
[2016-09-27] MEDS ORDERED: FUROSEMIDE 20 MG TAB PO SCH (09:00)
== END 2016-09-26 19:30 | disposition left against medical advice (07) | DRG 293 ==
LOC: E/R 04:51 → MS4 06:57
PROVIDERS: ADMIT Internal Medicine Nephrology; ATTEND Internal Medicine Nephrology
DX: I50.23 Acute on chronic systolic (congestive) heart failure (principal); I10 Essential (primary) hypertension; I51.7 Cardiomegaly; I25.10 Atherosclerotic heart disease of native coronary artery without angina pectoris
CPT/HCPCS: 36415; 71010; 80048; 82550; 82553; 83880; 84484; 85025; 85610; 85730; 87040; 93005; 94664; 96374; 96375; 96376; J1940; J2930

== ENCOUNTER 2016-10-01 11:27 | Inpatient (IN) | payer MEDICARE, MEDICAID ==
[~2016-10-01] VITALS: Ht 167.6 cm; Wt 91.1 kg
[~2016-10-01 11:27] MED LIST changes: -AMLO2.5T78 PO; +ASPI81TA3 PO; -CARV3.1260 PO; +CARV6.2579 PO; +FURO20TA3 PO; -LEVO500T72 PO; -LISI-313 PO; +LISI10TA2 PO; -SERT25TA83 PO
[2016-10-01 12:00] LABS: ADD SCAN DIFF NO
[2016-10-01 12:05] LABS: BASOPHILS % 0.3 % (0.0-2.0); EOSINOPHILS # 0.2 10^3/ul (0.0-0.5); EOSINOPHILS % 2.7 % (0.0-7.0); HEMATOCRIT 47.1 % (42.0-52.0); HEMOGLOBIN 14.7 g/dl (14.0-18.0); LYMPHOCYTES # 1.7 10^3/ul (0.8-2.9); LYMPHOCYTES % 23.6 % (15.0-51.0); MEAN CORPUSCULAR HEMOGLOBIN 28.7 pg (29.0-33.0); MEAN CORPUSCULAR HGB CONC 31.2 g/dl (32.0-37.0); MEAN PLATELET VOLUME 10.5 fl (7.4-10.4); MONOCYTE # 0.7 10^3/ul (0.3-0.9); MONOCYTES % 9.2 % (0.0-11.0); NEUTROPHIL # 4.7 10^3/ul (1.6-7.5); NEUTROPHILS % 63.9 % (39.0-77.0); PLATELET COUNT 187 10^3/UL (140-415); RED BLOOD COUNT 5.12 10^6/ul (4.70-6.10); RED CELL DISTRIBUTION WIDTH 13.7 % (11.5-14.5); WHITE BLOOD COUNT 7.4 10^3/ul (4.8-10.8)
[2016-10-01 12:13] LABS: INR 1.01; PARTIAL THROMBOPLASTIN TIME 29.3 Sec (25.0-35.0); PROTIME 13.3 Sec (12.2-14.2)
--- NOTE | 2016-10-01 12:26 | ERA ---
ER Documentation Chief Complaint Date/Time DATE: 10/01/16 TIME: 12:24 Chief Complaint sob with no signs of cp. no nausea no vomiting. HPI 80-year-old male with a history of coronary artery disease, ischemic cardiomyopathy with EF in the 30s, hypertension, brought in by ambulance for worsening shortness of breath today. He was admitted about 5 days ago for similar symptoms and chest pain. He was seen by cardiology, Dr. Lovett, who recommended he get an angiogram as he had a positive stress test as an outpatient. Patient at that time refused angiogram per Dr. Lino, the admitting doctor. Patient states that he's had shortness of breath for many years, however today got significantly worse. He was laying down when his symptoms started. He does not think it is worse with exertion. He denies any associated chest pain, cough, fever, chills. On his last admission he had a pleural effusion that was drained. Patient endorses continued smoking. ROS All systems reviewed and are negative except as per history of present illness. Medications Home Meds Active Scripts Albuterol Sulfate* (Proair HFA*) 8.5 Gm Hfa.aer.ad, 2 PUFF INH Q4, #1 INHALER Prov:SAMARIA LINO MD 07/25/16 Reported Medications Furosemide* (Furosemide*) 20 Mg Tablet, 20 MG PO DAILY, #60 TAB 09/26/16 Carvedilol* (Carvedilol*) 6.25 Mg Tablet, 6.25 MG PO BID, #60 TAB 09/26/16 Aspirin* (Aspirin* Chew) 81 Mg Tab.chew, 81 MG PO DAILY, TAB.CHEW 09/26/16 Lisinopril* (Lisinopril*) 10 Mg Tablet, 10 MG PO DAILY, #30 TAB 09/26/16 Discontinued Reported Medications Sertraline Hcl* (Sertraline Hcl*) 25 Mg Tablet, 25 MG PO DAILY, #30 TAB 07/18/16 Amlodipine Besylate* (Amlodipine Besylate*) 2.5 Mg Tablet, 2.5 MG PO DAILY, #30 TAB 07/18/16 Discontinued Scripts Lisinopril* (Lisinopril*) 5 Mg Tablet, 5 MG PO DAILY for 28 Days, TAB Prov:SAMARIA LINO MD 07/25/16 Levofloxacin* (Levaquin*) 500 Mg Tablet, 500 MG PO DAILY@06 for 7 Days, TAB Prov:SAMARIA LINO MD 07/25/16 Carvedilol* (Carvedilol*) 3.125 Mg Tablet, 3.125 MG PO BID for 28 Days, #30 TAB Prov:SAMARIA LINO MD 07/25/16 Allergies Allergies: Coded Allergies: No Known Drug Allergy (Verified Allergy, Mild, 10/01/16) PMhx/Soc History of Surgery: No Anesthesia Reaction: No Hx Neurological Disorder: No Hx Respiratory Disorders: No Hx Cardiac Disorders: Yes (CAD, ischemic cardiomyopathy) Hx Psychiatric Problems: No Hx Miscellaneous Medical Probl: Yes (hypertension) Hx Alcohol Use: No Hx Substance Use: No Hx Tobacco Use: Yes FmHx Family History: No diabetes Physical Exam Vitals Vital Signs Date Time Temp Pulse Resp B/P Pulse Ox O2 Delivery O2 Flow Rate FiO2 10/01/16 14:01 45 16 137/79 100 Mask 10.0 10/01/16 13:50 69 20 96 21 10/01/16 11:30 98.2 59 20 131/76 93 Physical Exam Const: Nontoxic, in mild respiratory distress Head: Atraumatic Eyes: Normal Conjunctiva ENT: Dry mucous membranes Neck: Full range of motion. No meningismus. Resp: Diffuse coarse expiratory breath sounds bilaterally, diminished breath sounds at the bases Cardio: Regular rate and rhythm, no murmurs, 2+ distal pulses, equal bilaterally Abd: Soft, non tender, non distended. Normal bowel sounds Skin: No petechiae or rashes Back: No midline or flank tenderness Ext: No cyanosis, or edema Neur: Awake and alert Psych: Normal Mood and Affect Result Diagram: 10/01/16 1146 10/01/16 1146 Results 24 hrs Laboratory Tests Test 10/01/16 11:41 10/01/16 11:46 Blood Gas Specimen Source Blood venous Arterial Blood Date Drawn 10/01/2016 12:20:08 PM Arterial Blood Gas Puncture Site OTHER Tony Test N/A Venous Blood pH 7.379 Venous Blood pCO2 (Temp Corrected) 57.5mmHG Venous Blood pO2 (Temp Corrected) 35.7mmHG Venous Blood HCO3 33.2mmol/L Venous Blood Oxygen Saturation 68.0mmHG Venous Blood Base Excess 6.0mmol/L Venous Blood Total Hemoglobin 16.1g/dl Venous Blood Oxyhemoglobin 65.3% Venous Blood Methemoglobin 0.2% Carboxyhemoglobin 3.7% Blood Gas Temperature 37.0C Blood Gas Modality ROOM AIR FiO2 21.0% Blood Gas Notified Whom JLD Blood Gas Notified Time 10/01/2016 12:33:20 PM White Blood Count 7.410^3/ul Red Blood Count 5.1210^6/ul Hemoglobin 14.7g/dl Hematocrit 47.1% Mean Corpuscular Volume 92.0fl Mean Corpuscular Hemoglobin 28.7pg Mean Corpuscular Hemoglobin Concent 31.2g/dl Red Cell Distribution Width 13.7% Platelet Count 19669^3/UL Mean Platelet Volume 10.5fl Neutrophils % 63.9% Lymphocytes % 23.6% Monocytes % 9.2% Eosinophils % 2.7% Basophils % 0.3% Nucleated Red Blood Cells % 0.0/100WBC Neutrophils # 4.710^3/ul Lymphocytes # 1.710^3/ul Monocytes # 0.710^3/ul Eosinophils # 0.210^3/ul Basophils # 0.010^3/ul Nucleated Red Blood Cells # 0.010^3/ul Prothrombin Time 13.3Sec Prothrombin Time Ratio 1.0 INR International Normalized Ratio 1.01 Activated Partial Thromboplast Time 29.3Sec Sodium Level 139mmol/L Potassium Level 3.4mmol/L Chloride Level 100mmol/L Carbon Dioxide Level 31mmol/L Anion Gap 11 Blood Urea Nitrogen 17mg/dl Creatinine 1.03mg/dl Glucose Level 124mg/dl Calcium Level 8.6mg/dl Troponin I 0.028ng/ml Current Medications Medications (Trade) Dose Ordered Sig/Scott Route PRN Reason Start Time Stop Time Status Last Admin Dose Admin Albuterol (Proventil 0.083% (Neb)) 5 mg ONCE STAT NEB 10/01/16 13:09 10/01/16 13:10 DC 10/01/16 13:49 Ondansetron HCl (Zofran Inj) 4 mg ER BRIDGE PRN IV NAUSEA AND/OR VOMITING 10/01/16 14:30 10/02/16 14:29 Acetaminophen (Tylenol Tab) 650 mg ER BRIDGE PRN PO MILD PAIN/FEVER 10/01/16 14:30 10/02/16 14:29 Procedures/MDM EMERGENT LABS AND DIAGNOSTIC STUDIES: Lab Results above were reviewed and interpreted by me. Mild hypokalemia, troponin within normal limits Otherwise labs unremarkable 12-lead EKG was interpreted by Rosa Jarquin MD: EKG #1: Rate/Rhythm: Normal Sinus rhythm at 71 bpm QRS, ST, T-waves: LVH with QRS widening, lateral T-wave abnormality Impression: No evidence of acute ischemia or arrhythmia EKG #2: Rate/Rhythm: Sinus bradycardia QRS, ST, T-waves: LVH with QRS widening, lateral T-wave abnormality Impression: No evidence of acute ischemia or arrhythmia Radiology Results as interpreted by Radiology below were reviewed by Marlo Jarquin MD: Chest x-ray: IMPRESSION: 1. When compared to the previous study from 09/26/2016, there has been slight improvement to a patchy left lower lobe infiltrate and small left pleural effusion. 2. Otherwise, no significant abnormalities are identified. Physician Bree Date Time Electronically viewed and signed by Jorgito Bustos Physician on 10/01/2016 12: 47 Initial Nursing notes reviewed. Previous Medical Records requested via the Electronic Health Record. EMERGENCY DEPARTMENT COURSE / MEDICAL DECISION MAKING: Patient is presenting with worsening shortness of breath and constellation of symptoms concerning for acute decompensated CHF. Vitals were notable for mild hypoxia on room air and sinus bradycardia. Oxygenation improved with supplemental oxygen.. EKG shows no overt evidence of acute ischemia, but there are some nonspecific T wave inversions. Low suspicion for acute PE given exam and history. Low suspicion for acute ischemia, but will trend troponin. Given decline in functional status, he will benefit from admission for further cardiac evaluation. I spoke with his primary care doctor, Dr. Lino, who stated that the patient will likely need an angiogram this time as his symptoms are worsening. He will consult Dr. Lovett, the collar runner. Accepting Care Team: Current data and ongoing care discussed. Time: Time of admission Primary Provider: Isael Lino Consulting: none Outstanding Data: none Departure Diagnosis: Primary Impression: Acute on chronic heart failure Qualified Code: I50.43 - Acute on chronic combined systolic and diastolic heart failure Additional Impression: Dyspnea Qualified Code: R06.02 - Shortness of breath Condition: Serious ROSAMARIA JARQUIN MD Oct 01, 2016 12:26
[2016-10-01 12:30] LABS: POTASSIUM 3.4 mmol/L (3.5-5.1)
[2016-10-01 12:32] LABS: CREATININE 1.03 mg/dl (0.61-1.24)
[2016-10-01 12:33] LABS: CALCIUM 8.6 mg/dl (8.4-10.2)
[2016-10-01 12:33] LABS: MODE ROOM AIR; MetHgb Venous 0.2 %; Sample Type Blood venous; Venous COHb 3.7 %; Venous Fraction OxyHgb 65.3 %; Venous Total Hemglobin 16.1 g/dl
[2016-10-01 12:36] LABS: TROPONIN-I 0.028 ng/ml (0.00-0.12)
--- NOTE | 2016-10-01 12:47 | RADRPT ---
PROCEDURE: XR Chest. CLINICAL INDICATION: Shortness of breath TECHNIQUE: Single frontal view of the chest was obtained COMPARISON: 09/26/2016 FINDINGS: Atherosclerotic changes are seen in the aortic arch. The cardiac silhouette is unremarkable. There has been slight improvement to a patchy infiltrate in the left lower lobe and small left effus ion. The lungs are otherwise clear. The right pleural space is clear. The bones and soft tissue show no acute change. IMPRESSION: 1. When compared to the previous study from 09/26/2016, there has been slight improvement to a patc hy left lower lobe infiltrate and small left pleural effusion. 2. Otherwise, no significant abnormalities are identified. RPTAT:AAJJ Physician Bree Date Time Electronically viewed and signed by Jorgito Bustos Physician on 10/01/2016 12:47 NELSON/
[2016-10-01] MEDS ORDERED: ALBUTEROL 0.083% (NEB) 2.5 MG/3 ML AMP NEB STA (13:09)
[2016-10-01] MEDS ORDERED: ACETAMINOPHEN 325 MG TAB PO PRN ×2 (14:30→16:30)
[2016-10-01] MEDS ORDERED: ONDANSETRON 4 MG INJ IV PRN ×2 (14:30→16:30)
[2016-10-01] MEDS ORDERED: HYDROCODONE/APAP (5/325) TAB PO PRN (16:30)
[2016-10-01] MEDS ORDERED: MAGNESIUM HYDROXIDE 30ML CUP PO PRN (16:30)
[2016-10-01] MEDS ORDERED: BISACODYL (EC) 5 MG TAB PO PRN (16:30)
[2016-10-01] MEDS ORDERED: morphine 2 MG INJ IV PRN (16:30)
[2016-10-01] MEDS ORDERED: NACL 0.9% 3 ML SYG IV SCH (16:30)
[2016-10-01] MEDS ORDERED: ACETAMINOPHEN 650 MG SUPP PR PRN (16:30)
[2016-10-01] MEDS ORDERED: DOCUSATE SODIUM 100 MG CAP PO PRN (16:30)
[2016-10-01] MEDS: ALBUTEROL HFA 8 GM INHALER INH SCH (16:51)
[2016-10-01 17:57] LABS: TROPONIN-I 0.031 ng/ml (0.00-0.12)
[2016-10-01 17:59] LABS: CK-MB 1.29 ng/ml (0.0-2.4)
--- NOTE | 2016-10-01 18:11 | QN ---
Documentation Comment [id number] SAMARIA LINO MD Oct 01, 2016 18:11
[2016-10-01] MEDS ORDERED: POTASSIUM CHLORIDE (SR) 10 MEQ TAB PO ONE (18:30)
[2016-10-01 23:30] LABS: TROPONIN-I 0.035 ng/ml (0.00-0.12)
[2016-10-01 23:31] LABS: CK-MB 1.14 ng/ml (0.0-2.4)
--- NOTE | 2016-10-01 23:35 | HP ---
DATE OF ADMISSION: 10/01/2016 HISTORY OF PRESENT ILLNESS: The patient is an 80-year-old male who was recently admitted to this [facility] and the patient left against medical advice. Presented back again, short of breath. The pat anival previously was seen by Dr. Lovett. His impression, cardiomyopathy with decreased left ventric ular ejection fraction. The patient is an 80-year-old male with history of cardiomyopathy, decrease d left ventricular ejection fraction 30% to 35%, hypertension, recurrent pleural effusion, history o f thoracentesis, had a stress test done revealing ischemia, refused any further testing. PAST MEDICAL HISTORY: CHF. The patient has a cardiomyopathy, hypertension, pleural effusion, histo ry of thoracentesis. The patient's other history includes the patient has a history of lung infiltr ate, history of systolic heart failure, history of obesity. ALLERGY HISTORY: NEGATIVE. FAMILY HISTORY: Negative. SOCIAL HISTORY: Positive for smoking. MEDICATION HISTORY: The patient at home is on: 1. Albuterol. 2. Aspirin. 3. Coreg. 4. Lasix. 5. Lisinopril. REVIEW OF SYSTEMS: HEENT: Unremarkable. RESPIRATORY: Short of breath. CARDIOVASCULAR: No chest pain, palpitation. ABDOMEN: Unremarkable. EXTREMITIES: Unremarkable. PHYSICAL EXAMINATION: GENERAL: Obese, overweight male, awake, alert. VITAL SIGNS: Pulse 69, blood pressure 131/76. HEAD: Atraumatic, normocephalic. Pupils equal, reactive to light. LUNGS: Decreased air entry both lungs. CARDIOVASCULAR: S1, S2 are normal. ABDOMEN: Soft, obese, bowel sounds present. No palpable mass. EXTREMITIES: There is no cyanosis, clubbing, edema. CENTRAL NERVOUS SYSTEM: The patient is awake, alert, moving both upper and lower extremities. LABORATORY DATA: Hematocrit of 47.1. Sodium 139, potassium 3.4. Chest x-ray has slight improvemen t in the patchy left lower lobe infiltrate and small left pleural effusion. IMPRESSION: 1. Clinical systolic heart failure. 2. Pleural effusion. 3. Hypokalemia. 4. Cardiomyopathy. 5. Decreased ejection fraction. PLAN: The patient is currently on Tylenol. The patient is on albuterol, aspirin, bisacodyl, Coreg, Lovenox, Lasix, hydrocodone, lisinopril, magnesium, morphine. The patient will have troponin sent. Cardiology consultation. Orders were done. Dictated By: SAMARIA LINO MD BS/NTS Conf#: [id number] DID#: [id number]
[2016-10-02] VITALS (13 sets, daily range): BP systolic 113–166; BP diastolic 56–81; PULSE 40–84; RESP 18–20; TEMP 98.9; Ht 167.6 cm; Wt 91.1 kg
[2016-10-02] MEDS: ALBUTEROL HFA 8 GM INHALER INH SCH ×7 (01:00→20:49)
[2016-10-02] MEDS ORDERED: PANTOPRAZOLE 40 MG INJ IV SCH (06:00)
[2016-10-02] MEDS: LORAZEPAM 1 MG TAB PO PRN (06:25)
[2016-10-02] MEDS: FUROSEMIDE 20 MG TAB PO SCH (08:28)
[2016-10-02] MEDS: LISINOPRIL 10 MG TAB PO SCH (08:28)
[2016-10-02] MEDS: ASPIRIN 81 MG TAB PO SCH (08:28)
[2016-10-02] MEDS: ENOXAPARIN 40 MG/0.4 ML SYG SC SCH (08:31)
--- NOTE | 2016-10-02 17:51 | PN ---
Date/Time of Note Date/Time of Note DATE: 10/02/16 TIME: 17:50 Assessment/Plan VTE Prophylaxis VTE Prophylaxis Intervention: other Lines/Catheters [facility] Saline Lock Urinary Cath still in place: No Assessment/Plan Chief Complaint/Hosp Course IMPRESSION: 1. Clinical systolic heart failure. 2. Pleural effusion. 3. Hypokalemia. 4. Cardiomyopathy. 5. Decreased ejection fraction. [address] [facility] cardiology Problems: Subjective 24 Hr Interval Summary Respiratory: shortness of breath (+) Gastrointestinal: no complaints Exam/Review of Systems Vital Signs Vitals Vital Signs Date Time Temp Pulse Resp B/P Pulse Ox O2 Delivery O2 Flow Rate FiO2 10/02/16 16:15 63 10/02/16 15:31 98.7 18 136/72 98 10/02/16 08:39 Nasal Cannula 3.0 10/01/16 13:50 21 Intake and Output 10/01/16 10/01/16 10/02/16 15:00 23:00 07:00 Output Total 450 ml Balance -450 ml Exam Respiratory: diminished breath sounds Cardiovascular: regular rate and rhythm Gastrointestinal: soft Musculoskeletal: nl extremities to inspection Extremities: normal pulses Results Result Diagram: 10/01/16 1146 10/01/16 1146 Results 24 hrs Laboratory Tests Test 10/01/16 22:22 Creatine Kinase 54 Creatine Kinase Index 2.1 Creatinine Kinase MB (Mass) 1.14 Troponin I 0.035 Medications Medications Current Medications Albuterol (Ventolin Hfa) 2 puff Q4 INH Last administered on 10/02/16 17:00; Admin Dose 2 PUFF; Start 10/01/16 at 17:00 Aspirin (Aspirin) 81 mg DAILY PO Last administered on 10/02/16 08:28; Admin Dose 81 MG; Start 10/02/16 at 09:00 Carvedilol (Coreg) 6.25 mg BID PO Last administered on 10/02/16 08:28; Admin Dose 6.25 MG; Start 10/01/16 at 21:00 Furosemide (Lasix) 20 mg DAILY PO Last administered on 10/02/16 08:28; Admin Dose 20 MG; Start 10/02/16 at 09:00 Lisinopril (Zestril) 10 mg DAILY PO Last administered on 10/02/16 08:28; Admin Dose 10 MG; Start 10/02/16 at 09:00 Ondansetron HCl (Zofran Inj) 4 mg Q6H PRN IV NAUSEA AND/OR VOMITING; Start at 16:30 Acetaminophen (Tylenol Tab) 650 mg Q6H PRN PO PAIN LEVEL 1-3 OR FEVER; Start at 16:30 Acetaminophen (Tylenol Supp) 650 mg Q6H PRN [place] PAIN LEVEL 1-3 OR FEVER; Start 10/01/16 at 16:30 Acetaminophen/ Hydrocodone Bitart ([place] (5/325)) 1 tab Q6H PRN PO MODERATE PAIN LEVEL 4-6; Start 10/01/16 at 16:30 Morphine Sulfate (morphine) 2 mg Q4H PRN IV SEVERE PAIN LEVEL 7-10; Start 10/01 at 16:30 Docusate Sodium (Colace) 100 mg Q12H PRN PO CONSTIPATION; Start 10/01/16 at 16: 30 Magnesium Hydroxide (Milk Of Mag) 30 ml DAILY PRN PO CONSTIPATION; Start at 16:30 Bisacodyl (Dulcolax) 5 mg DAILY PRN PO CONSTIPATION; Start 10/01/16 at 16:30 Enoxaparin Sodium (Lovenox) 40 mg DAILY SC Last administered on 10/02/16 08:31 ; Admin Dose 40 MG; Start 10/02/16 at 09:00 Lorazepam (Ativan) 1 mg Q6H PRN PO ANXIETY Last administered on 10/02/16 06:25 ; Admin Dose 1 MG; Start 10/02/16 at 06:30 Pantoprazole (Protonix Tab) 40 mg DAILY@06 PO ; Start 10/03/16 at 06:00 SAMARIA LINO MD Oct 02, 2016 17:51
[2016-10-02] MEDS: POTASSIUM CHLORIDE (SR) 10 MEQ TAB PO SCH (20:48)
[2016-10-03] VITALS (12 sets, daily range): BP systolic 116–167; BP diastolic 61–82; PULSE 44–74; RESP 16–19
[2016-10-03] MEDS: ALBUTEROL HFA 8 GM INHALER INH SCH ×6 (02:27→23:44)
[2016-10-03] MEDS: PANTOPRAZOLE (EC) 40 MG TAB PO SCH (06:22)
[2016-10-03 06:49] LABS: CALCIUM 8.4 mg/dl (8.4-10.2); CREATININE 0.97 mg/dl (0.61-1.24); POTASSIUM 4.1 mmol/L (3.5-5.1)
[2016-10-03] MEDS: LISINOPRIL 10 MG TAB PO SCH (08:08)
[2016-10-03] MEDS: ASPIRIN 81 MG TAB PO SCH (08:08)
[2016-10-03] MEDS: FUROSEMIDE 20 MG TAB PO SCH (08:09)
[2016-10-03] MEDS: POTASSIUM CHLORIDE (SR) 10 MEQ TAB PO SCH ×2 (08:13→21:22)
[2016-10-03] MEDS: ENOXAPARIN 40 MG/0.4 ML SYG SC SCH (08:16)
--- NOTE | 2016-10-03 13:16 | PN ---
Date/Time of Note Date/Time of Note DATE: 10/03/16 TIME: 13:14 Assessment/Plan VTE Prophylaxis VTE Prophylaxis Intervention: other Lines/Catheters [facility] Saline Lock Urinary Cath still in place: No Assessment/Plan Chief Complaint/Hosp Course IMPRESSION: 1. Clinical systolic heart failure. 2. Pleural effusion. 3. Hypokalemia. better 4. Cardiomyopathy. 5. Decreased ejection fraction. 6 bradycardia plan cardiology pending Problems: Subjective 24 Hr Interval Summary Respiratory: shortness of breath (+) Cardiovascular: no complaints, orthopenea Genitourinary: no complaints Musculoskeletal: no complaints Exam/Review of Systems Vital Signs Vitals Vital Signs Date Time Temp Pulse Resp B/P Pulse Ox O2 Delivery O2 Flow Rate FiO2 10/03/16 12:03 54 10/03/16 11:46 98.4 19 131/61 94 10/03/16 09:16 Nasal Cannula 3.0 10/01/16 13:50 21 Intake and Output 10/02/16 10/02/16 10/03/16 15:00 23:00 07:00 Intake Total 720 ml 400 ml Balance 720 ml 400 ml Exam Neck: supple Respiratory: diminished breath sounds Cardiovascular: regular rate and rhythm Gastrointestinal: soft Extremities: edema (+) Results Result Diagram: 10/01/16 1146 10/03/16 0616 Results 24 hrs Laboratory Tests Test 10/03/16 06:16 Sodium Level 138 Potassium Level 4.1 Chloride Level 105 Carbon Dioxide Level 29 Anion Gap 8 Blood Urea Nitrogen 18 Creatinine 0.97 Glucose Level 91 Calcium Level 8.4 Medications Medications Current Medications Albuterol (Ventolin Hfa) 2 puff Q4 INH Last administered on 10/03/16 12:50; Admin Dose 2 PUFF; Start 10/01/16 at 17:00 Aspirin (Aspirin) 81 mg DAILY PO Last administered on 10/03/16 08:08; Admin Dose 81 MG; Start 10/02/16 at 09:00 Carvedilol (Coreg) 6.25 mg BID PO Last administered on 10/02/16 20:49; Admin Dose 6.25 MG; Start 10/01/16 at 21:00 Furosemide (Lasix) 20 mg DAILY PO Last administered on 10/03/16 08:09; Admin Dose 20 MG; Start 10/02/16 at 09:00 Lisinopril (Zestril) 10 mg DAILY PO Last administered on 10/03/16 08:08; Admin Dose 10 MG; Start 10/02/16 at 09:00 Ondansetron HCl (Zofran Inj) 4 mg Q6H PRN IV NAUSEA AND/OR VOMITING; Start at 16:30 Acetaminophen (Tylenol Tab) 650 mg Q6H PRN PO PAIN LEVEL 1-3 OR FEVER; Start at 16:30 Acetaminophen (Tylenol Supp) 650 mg Q6H PRN [place] PAIN LEVEL 1-3 OR FEVER; Start 10/01/16 at 16:30 Acetaminophen/ Hydrocodone Bitart ([place] (5/325)) 1 tab Q6H PRN PO MODERATE PAIN LEVEL 4-6; Start 10/01/16 at 16:30 Morphine Sulfate (morphine) 2 mg Q4H PRN IV SEVERE PAIN LEVEL 7-10; Start 10/01 at 16:30 Docusate Sodium (Colace) 100 mg Q12H PRN PO CONSTIPATION; Start 10/01/16 at 16: 30 Magnesium Hydroxide (Milk Of Mag) 30 ml DAILY PRN PO CONSTIPATION; Start at 16:30 Bisacodyl (Dulcolax) 5 mg DAILY PRN PO CONSTIPATION; Start 10/01/16 at 16:30 Enoxaparin Sodium (Lovenox) 40 mg DAILY SC Last administered on 10/03/16 08:16 ; Admin Dose 40 MG; Start 10/02/16 at 09:00 Lorazepam (Ativan) 1 mg Q6H PRN PO ANXIETY Last administered on 10/02/16 06:25 ; Admin Dose 1 MG; Start 10/02/16 at 06:30 Pantoprazole (Protonix Tab) 40 mg DAILY@06 PO Last administered on 10/03/16 06 :22; Admin Dose 40 MG; Start 10/03/16 at 06:00 Potassium Chloride (Klor-Con 10) 10 meq BID PO Last administered on 10/03/16 08:13; Admin Dose 10 MEQ; Start 10/02/16 at 21:00 SAMARIA LINO MD Oct 03, 2016 13:15
--- NOTE | 2016-10-03 16:19 | CONS ---
DATE OF ADMISSION: 10/01/2016 DATE OF CONSULTATION: 10/03/2016 CARDIOLOGY CONSULTATION REASON FOR CONSULTATION: Congestive heart failure exacerbation. REQUESTING PHYSICIAN: Dr. Marc Lino HISTORY OF PRESENT ILLNESS: Mr. Ibarra is an 80-year-old male with history of cardiomyopathy, decr eased left ventricular ejection fraction, last approximately 30 to 35% by echo and 38% by stress in our office recently with positive inferior ischemia, recurrent pleural effusions, ongoing tobacco us age, and hypertension who presents with complaints of shortness of breath. The patient had recently been admitted 09/26/2016 with symptoms of chest pain and was scheduled for a cardiac catheterizatio n to take place the following day but left AMA. This is the second time the patient has left AMA wh en he is scheduled for procedures. Upon arrival, temperature 98.2, blood pressure 131/76, pulse 59, respirations 20, saturating 92%. The patient's labs revealed a white count 10.4, hemoglobin 12.7, platelet count 187. Sodium 139, potassium 3.9, creatinine of 1.0, BUN 17. Troponin negative. INR of 1.0. ABG revealing a pH of 7.37, pO2 of 35, a pCO2 of 57. The patient underwent a chest x-ray r evealing patchy left lower lobe infiltrate and small left pleural effusion. The patient's electroca rdiogram revealed sinus bradycardia, rate of 52, with borderline left axis deviation, an IVCD, secon mercedes repolarization abnormalities, and associated PVCs. The patient subsequently admitted to the [facility] and since admit to the floor has had somewhat labile blood pressures, highs 160s and lows 116 an d ongoing bradycardia as low as 49. The patient, at this time, denies chest pain, has ongoing short ness of breath. PAST MEDICAL HISTORY: As above in HPI. MEDICATIONS CURRENTLY IN HOSPITAL: 1. Protonix 40 mg daily. 2. Potassium chloride 10 mEq b.i.d. 3. Aspirin 81 mg daily. 4. Lasix 20 mg a day. 5. Zestril 10 mg daily. 6. Lovenox ____ subcu daily. 7. Ativan p.r.n. 8. Carvedilol 6.25 mg p.o. b.i.d. 9. Albuterol 2 puffs q. 4. 10. Zofran p.r.n. 11. Tylenol p.r.n. 12. Morphine p.r.n. 13. Colace p.r.n. 14. Milk of magnesium p.r.n. 15. Dulcolax p.r.n. ALLERGIES: NO KNOWN DRUG ALLERGIES. SOCIAL HISTORY: Positive tobacco, social ETOH, no illicit drug use. FAMILY HISTORY: No history of sudden cardiac or early CAD. REVIEW OF SYSTEMS: As above in HPI. CONSTITUTIONAL: No fevers, chills. PULMONARY: Shortness of breath. CARDIOVASCULAR: History of cardiomyopathy and abnormal stress test. GASTROINTESTINAL: No vomiting. GENITOURINARY: No hematuria. MUSCULOSKELETAL: Degenerative joint disease. PHYSICAL EXAMINATION: VITAL SIGNS: Temperature 98.1, blood pressure most recently 116/68, pulse of 46, respiratory rate 1 9, saturation 94%. GENERAL: The patient is alert, awake, complaining of mild shortness of breath. NECK: JVP approximately 9 cm water. CHEST: Bibasilar crackles. HEART: Bradycardic, regular rhythm, normal S1, S2, I/ systolic murmur, laterally displaced PMI. ABDOMEN: Positive bowel sounds, soft. EXTREMITIES: Trace edema, 1+ pulses bilaterally, posterior tibial. LABORATORIES: As above in HPI with most recently from today, sodium 138, potassium 4.1, creatinine 0.9, BUN 17. Troponin negative x3. IMAGING STUDIES: As above in HPI. No further imaging studies for my review at this time. ELECTROCARDIOGRAM: As above in HPI with repeat EKG revealing normal sinus rhythm, rate of 71, IVCD, left ventricular hypertrophy, septal Q's, secondary repolarization abnormalities. IMPRESSION: 1. Congestive heart failure exacerbation, systolic, acute on chronic. 2. Abnormal cardiac stress test revealing inferior ischemia recently. 3. Cardiomyopathy with decreased left ventricular ejection fraction, last approximately 35% by stre ss and echo. 4. Pleural effusion. 5. Bradycardia. RECOMMENDATIONS: 1. At this time, would maintain the patient on telemetry monitoring to follow rhythm and rate contr ol closely. 2. Would decrease the patient's dose of carvedilol and follow heart rate closely. 3. Continue the patient's current ____. 4. Continue the patient's Lasix diuresis. 5. Follow the patient's volume status closely with possible cardiac catheterization when the patien t is stabilized and can be rescheduled. Thank you for allowing me to take part in the care of this patient. I will continue to follow very closely with you with further recommendations to be made as the patient progresses through his [facility] clinical course. Dictated By: SARAH CARRASCO/ALTAF Conf#: [id number] DID#: [id number] CC: MARC LINO MD;*EndCC*
[2016-10-03] MEDS: FUROSEMIDE 20 MG INJ IV SCH (17:11)
--- NOTE | 2016-10-03 20:46 | RADRPT ---
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 Physician: DELVIS KNIGHT Quality: Good Procedures: Transthoracic echocardiogram with complete 2D, M-Mode, and doppler examination. Indications: Congestive Heart Failure. 2D/M Mode Doppler Measurement Value Normal Ranges Measurement Value Normal Ranges LVIDd 2D 5.8 3.5 - 5.6 cm AV Peak [place] 1.1 m/sec LVIDs 2D 4.6 2.1 - 4.1 cm AV Peak PG 5.0 mmHg LVPWd 2D 1.2 0.6 - 1.1 cm LVOT Peak [place] 0.9 m/sec IVSd 2D 1.1 0.6 - 1.1 cm LVOT Peak PG 3.3 mmHg AoR Diam 2D 2.6 2.0 - 3.7 cm MV E Peak [place] 0.8 m/sec EDV 2D 163.8 cm3 MV A Peak [place] 0.9 m/sec ESV 2D 96.4 cm3 MV E/A 0.8 LA Dimen 2D 3.6 2.3 - 4.0 cm MV Decel Time [address] [place] 3 MV E/A 0.8 Findings Left Ventricle: Mild concentric left ventricular hypertrophy. Mild enlargement of left ventricle cavity. Moderate left ventricular systolic dysfunction. Ejection fraction is visually estimated at 35 %. Tissue Doppler/Mitral Doppler indices are consistent with impaired relaxation (Stage I diastolic dysfunction). Right Ventricle: Normal right ventricular size. Normal right ventricular systolic function. Left Atrium: The left atrium is normal in size. Right Atrium: The right atrium is normal in size. Mitral Valve: Mitral valve leaflets appear mildly thickened. Mild mitral annular calcification. Trace mitral regurgitation. Aortic Valve: Normal appearance of the aortic valve. No significant aortic stenosis or insufficiency. Tricuspid Valve: Normal appearance and function of the tricuspid valve with trace physiologic regurgitation. Normal right ventricular systolic pressure. Pulmonic Valve: Normal pulmonic valve appearance. There is trace pulmonic regurgitation. Pericardium: Normal pericardium with no significant pericardial effusion. Aorta: Normal aortic root. IVC: Normal size and normal respiratory collapse consistent with normal right atrial pressure. Conclusions 1.Mildly enlarged left ventricular cavity size. Mild concentric left ventricular hypertrophy. Moderate left ventricular systolic dysfunction. Ejection fraction is visually estimated at 35 %. Tissue Doppler/Mitral Doppler indices are consistent with impaired relaxation (Stage I diastolic dysfunction). 2.Trace mitral regurgitation. 3.Normal appearance and function of the tricuspid valve with trace physiologic regurgitation. Normal right ventricular systolic pressure. 4.There is trace pulmonic regurgitation. Electronically Signed By: Khang Lovett 03-Oct-2016 20:45:19 0700 Patient Name: ALEXANDER HOWARD Study Date: 02-Oct-2016 [id number]
[2016-10-04] VITALS (12 sets, daily range): BP systolic 108–169; BP diastolic 66–88; PULSE 54–77; RESP 16–20
[2016-10-04] MEDS: ALBUTEROL HFA 8 GM INHALER INH SCH ×6 (01:00→20:23)
[2016-10-04] MEDS: LORAZEPAM 1 MG TAB PO PRN (03:42)
[2016-10-04] MEDS: PANTOPRAZOLE (EC) 40 MG TAB PO SCH (05:14)
[2016-10-04] MEDS: FUROSEMIDE 20 MG INJ IV SCH ×2 (05:14→17:30)
[2016-10-04 08:15] LABS: CHOL/HDL RATIO 3.1 RATIO
[2016-10-04 08:28] LABS: TROPONIN-I 0.028 ng/ml (0.00-0.12)
[2016-10-04] MEDS: ASPIRIN 81 MG TAB PO SCH (08:36)
[2016-10-04] MEDS: POTASSIUM CHLORIDE (SR) 10 MEQ TAB PO SCH ×2 (08:36→20:22)
[2016-10-04] MEDS: ENOXAPARIN 40 MG/0.4 ML SYG SC SCH (08:37)
[2016-10-04] MEDS: LISINOPRIL 10 MG TAB PO SCH (08:37)
--- NOTE | 2016-10-04 12:38 | CONS ---
Date/Time of Note Date/Time of Note DATE: 10/04/16 TIME: 12:33 Assessment/Plan Assessment/Plan Chief Complaint/Hosp Course IMPRESSION: 1. Congestive heart failure exacerbation, systolic, acute on chronic.-negative troponin x 3 since admit 2. Abnormal cardiac stress test revealing inferior ischemia recently. 3. Cardiomyopathy with decreased left ventricular ejection fraction, last approximately 35% by stress and echo. EF 35% by echo this admit 4. Pleural effusion. 5. Bradycardia.-improved with decrease in dosage of coreg 6. Dyslipidemia-LDL 60 HDL 46 Recc -Tele -serial ecg's -Continue coreg/ACEI -Continue lasix diuresis -Patient tenatively scheduled for [facility] tomorrow AM 11 Problems: Consultation Date/Type/Reason Admit Date/Time Oct 03, 2016 at 07:13 Initial Consult Date 10/03/2016 Type of Consultation: Cardiology Reason for Consultation CHF/abnl mpi Referring Provider: SAMARIA LINO Exam/Review of Systems Vital Signs Vitals Vital Signs Date Time Temp Pulse Resp B/P Pulse Ox O2 Delivery O2 Flow Rate FiO2 10/04/16 12:16 66 10/04/16 11:36 97.7 20 108/66 96 10/03/16 09:16 Nasal Cannula 3.0 10/01/16 13:50 21 Intake and Output 10/03/16 10/03/16 10/04/16 15:00 23:00 07:00 Intake Total 600 ml 400 ml Balance 600 ml 400 ml Exam Review of Systems: CONSTITUTIONAL: No fevers, chills. PULMONARY: mild sob CARDIOVASCULAR: No chest pain/palpitations GASTROINTESTINAL: No nausea/vomiting. GENITOURINARY: No hematuria/dysuria. MUSCULOSKELETAL: No myagias/arthalgias. PSYCHIATRIC: The patient denies depression. NEUROLOGIC: No weakness Constitutional: other (sleeping, easily arousable) Psych: no complaints Head: normocephalic ENMT: mucosa pink and moist Neck: jvd (9 cm water), supple Respiratory: diminished breath sounds (at bases/B) Cardiovascular: regular rate and rhythm Gastrointestinal: non-tender, soft Musculoskeletal: muscle tone (normal) Extremities: edema (none) Neurological: other (No focal deficits) Results Result Diagram: 10/01/16 1146 10/03/16 0616 Results 24 hrs Laboratory Tests Test 10/04/16 06:20 Troponin I 0.028 Triglycerides Level 199 H Cholesterol Level 146 LDL Cholesterol, Calculated 60 HDL Cholesterol 46 Cholesterol/HDL Ratio 3.1 Medications Medications Current Medications Albuterol (Ventolin Hfa) 2 puff Q4 INH Last administered on 10/04/16 10:31; Admin Dose 2 PUFF; Start 10/01/16 at 17:00 Aspirin (Aspirin) 81 mg DAILY PO Last administered on 10/04/16 08:36; Admin Dose 81 MG; Start 10/02/16 at 09:00 Lisinopril (Zestril) 10 mg DAILY PO Last administered on 10/04/16 08:37; Admin Dose 10 MG; Start 10/02/16 at 09:00 Ondansetron HCl (Zofran Inj) 4 mg Q6H PRN IV NAUSEA AND/OR VOMITING; Start at 16:30 Acetaminophen (Tylenol Tab) 650 mg Q6H PRN PO PAIN LEVEL 1-3 OR FEVER; Start at 16:30 Acetaminophen (Tylenol Supp) 650 mg Q6H PRN [place] PAIN LEVEL 1-3 OR FEVER; Start 10/01/16 at 16:30 Acetaminophen/ Hydrocodone Bitart ([place] (5/325)) 1 tab Q6H PRN PO MODERATE PAIN LEVEL 4-6; Start 10/01/16 at 16:30 Morphine Sulfate (morphine) 2 mg Q4H PRN IV SEVERE PAIN LEVEL 7-10; Start 10/01 at 16:30 Docusate Sodium (Colace) 100 mg Q12H PRN PO CONSTIPATION; Start 10/01/16 at 16: 30 Magnesium Hydroxide (Milk Of Mag) 30 ml DAILY PRN PO CONSTIPATION; Start at 16:30 Bisacodyl (Dulcolax) 5 mg DAILY PRN PO CONSTIPATION; Start 10/01/16 at 16:30 Enoxaparin Sodium (Lovenox) 40 mg DAILY SC Last administered on 10/04/16 08:37 ; Admin Dose 40 MG; Start 10/02/16 at 09:00 Lorazepam (Ativan) 1 mg Q6H PRN PO ANXIETY Last administered on 10/04/16 03:42 ; Admin Dose 1 MG; Start 10/02/16 at 06:30 Pantoprazole (Protonix Tab) 40 mg DAILY@06 PO Last administered on 10/04/16 05 :14; Admin Dose 40 MG; Start 10/03/16 at 06:00 Potassium Chloride (Klor-Con 10) 10 meq BID PO Last administered on 10/04/16 08:36; Admin Dose 10 MEQ; Start 10/02/16 at 21:00 Carvedilol (Coreg) 3.125 mg BID PO Last administered on 10/04/16 08:37; Admin Dose 3.125 MG; Start 10/03/16 at 21:00 SARAH PERKINS Oct 04, 2016 12:38
--- NOTE | 2016-10-04 16:28 | RADRPT ---
PROCEDURE: Chest x-ray CLINICAL INDICATION: Congestive heart failure TECHNIQUE: Chest single view COMPARISON: 10/01/2016 FINDINGS: There is stable mild cardiomegaly and an sclerotic aortic calcification. The pulmonary vessels are borderline prominent. There is continued resolution of previously noted left lower lung infiltrate and trace left pleural effusion. No new infiltrates are identified. Right costophrenic angle sharp .. IMPRESSION: 1. Stable mild cardiomegaly and an sclerotic aortic calcification. 2. Pulmonary vessels borderline prominent. 3. Continued resolution of left lower lung infiltrate and trace left pleural effusion. 4. No new infiltrate RPTAT: HH .Mich Dailey MD, MD Date Time Electronically viewed and signed by .Mich Dailey MD, on 10/04/2016 16:28 .W/
--- NOTE | 2016-10-04 19:52 | PN ---
Date/Time of Note Date/Time of Note DATE: 10/04/16 TIME: 19:51 Assessment/Plan VTE Prophylaxis VTE Prophylaxis Intervention: other Lines/Catheters IV Catheter Type (from Nrsg): Saline Lock Central line still needed: Yes Urinary Cath still in place: No Reason Cath still needed: other (indicate) Assessment/Plan Chief Complaint/Hosp Course IMPRESSION: 1. Clinical systolic heart failure. 2. Pleural effusion. 3. Hypokalemia. better 4. Cardiomyopathy. 5. Decreased ejection fraction. 6 bradycardia hx plan cath per cardio Problems: Subjective 24 Hr Interval Summary Subjective hx not possible: other (will need cath per cardio) Exam/Review of Systems Vital Signs Vitals Vital Signs Date Time Temp Pulse Resp B/P Pulse Ox O2 Delivery O2 Flow Rate FiO2 10/04/16 16:36 54 10/04/16 16:08 98.0 20 119/82 95 10/03/16 09:16 Nasal Cannula 3.0 10/01/16 13:50 21 Intake and Output 10/03/16 10/03/16 10/04/16 15:00 23:00 07:00 Intake Total 600 ml 400 ml Balance 600 ml 400 ml Exam Respiratory: diminished breath sounds Cardiovascular: regular rate and rhythm Gastrointestinal: soft Musculoskeletal: nl extremities to inspection Extremities: normal pulses Results Result Diagram: 10/01/16 1146 10/03/16 0616 Results 24 hrs Laboratory Tests Test 10/04/16 06:20 Troponin I 0.028 Triglycerides Level 199 H Cholesterol Level 146 LDL Cholesterol, Calculated 60 HDL Cholesterol 46 Cholesterol/HDL Ratio 3.1 Medications Medications Current Medications Albuterol (Ventolin Hfa) 2 puff Q4 INH Last administered on 10/04/16 17:30; Admin Dose 2 PUFF; Start 10/01/16 at 17:00 Aspirin (Aspirin) 81 mg DAILY PO Last administered on 10/04/16 08:36; Admin Dose 81 MG; Start 10/02/16 at 09:00 Lisinopril (Zestril) 10 mg DAILY PO Last administered on 10/04/16 08:37; Admin Dose 10 MG; Start 10/02/16 at 09:00 Ondansetron HCl (Zofran Inj) 4 mg Q6H PRN IV NAUSEA AND/OR VOMITING; Start at 16:30 Acetaminophen (Tylenol Tab) 650 mg Q6H PRN PO PAIN LEVEL 1-3 OR FEVER; Start at 16:30 Acetaminophen (Tylenol Supp) 650 mg Q6H PRN [place] PAIN LEVEL 1-3 OR FEVER; Start 10/01/16 at 16:30 Acetaminophen/ Hydrocodone Bitart ([place] (5/325)) 1 tab Q6H PRN PO MODERATE PAIN LEVEL 4-6; Start 10/01/16 at 16:30 Morphine Sulfate (morphine) 2 mg Q4H PRN IV SEVERE PAIN LEVEL 7-10; Start 10/01 at 16:30 Docusate Sodium (Colace) 100 mg Q12H PRN PO CONSTIPATION; Start 10/01/16 at 16: 30 Magnesium Hydroxide (Milk Of Mag) 30 ml DAILY PRN PO CONSTIPATION; Start at 16:30 Bisacodyl (Dulcolax) 5 mg DAILY PRN PO CONSTIPATION; Start 10/01/16 at 16:30 Enoxaparin Sodium (Lovenox) 40 mg DAILY SC Last administered on 10/04/16 08:37 ; Admin Dose 40 MG; Start 10/02/16 at 09:00; Status Future Hold Lorazepam (Ativan) 1 mg Q6H PRN PO ANXIETY Last administered on 10/04/16 03:42 ; Admin Dose 1 MG; Start 10/02/16 at 06:30 Pantoprazole (Protonix Tab) 40 mg DAILY@06 PO Last administered on 10/04/16 05 :14; Admin Dose 40 MG; Start 10/03/16 at 06:00 Potassium Chloride (Klor-Con 10) 10 meq BID PO Last administered on 10/04/16 08:36; Admin Dose 10 MEQ; Start 10/02/16 at 21:00 Carvedilol (Coreg) 3.125 mg BID PO Last administered on 10/04/16 08:37; Admin Dose 3.125 MG; Start 10/03/16 at 21:00 Diazepam (Valium) 5 mg OC ONCE PO ; Start 10/05/16 at 08:00; Stop 10/05/16 at 08:01 Diphenhydramine HCl (Benadryl) 50 mg OC ONCE PO ; Start 10/05/16 at 08:00; Stop 10/05/16 at 08:01 SAMARIA LINO MD Oct 04, 2016 19:52
[2016-10-05] VITALS (28 sets, daily range): BP systolic 83–177; BP diastolic 51–89; PULSE 52–78; RESP 14–21
[2016-10-05] MEDS: ALBUTEROL HFA 8 GM INHALER INH SCH ×4 (01:31→13:00)
[2016-10-05] MEDS: PANTOPRAZOLE (EC) 40 MG TAB PO SCH (06:01)
[2016-10-05] MEDS: FUROSEMIDE 20 MG INJ IV SCH ×2 (06:04→17:17)
[2016-10-05 07:33] LABS: ADD SCAN DIFF NO
[2016-10-05 07:39] LABS: BASOPHILS % 0.3 % (0.0-2.0); EOSINOPHILS # 0.2 10^3/ul (0.0-0.5); EOSINOPHILS % 2.7 % (0.0-7.0); HEMATOCRIT 50.6 % (42.0-52.0); HEMOGLOBIN 15.8 g/dl (14.0-18.0); LYMPHOCYTES # 1.8 10^3/ul (0.8-2.9); MEAN CORPUSCULAR HEMOGLOBIN 28.7 pg (29.0-33.0); MEAN CORPUSCULAR HGB CONC 31.2 g/dl (32.0-37.0); MEAN PLATELET VOLUME 10.8 fl (7.4-10.4); MONOCYTE # 0.8 10^3/ul (0.3-0.9); MONOCYTES % 10.8 % (0.0-11.0); NEUTROPHIL # 4.3 10^3/ul (1.6-7.5); NEUTROPHILS % 60.9 % (39.0-77.0); PLATELET COUNT 199 10^3/UL (140-415); RED CELL DISTRIBUTION WIDTH 14.1 % (11.5-14.5); WHITE BLOOD COUNT 7.1 10^3/ul (4.8-10.8)
[2016-10-05] MEDS ORDERED: DIAZEPAM 5 MG TAB PO ONE (08:00)
[2016-10-05] MEDS ORDERED: DIPHENHYDRAMINE 50 MG CAP PO ONE (08:00)
[2016-10-05 08:10] LABS: PROTIME 13.2 Sec (12.2-14.2)
[2016-10-05 08:15] LABS: CALCIUM 8.8 mg/dl (8.4-10.2); CREATININE 1.16 mg/dl (0.61-1.24); POTASSIUM 3.7 mmol/L (3.5-5.1)
[2016-10-05] MEDS: POTASSIUM CHLORIDE (SR) 10 MEQ TAB PO SCH ×2 (08:27→20:41)
[2016-10-05] MEDS: ASPIRIN 81 MG TAB PO SCH (08:27)
[2016-10-05] MEDS: LISINOPRIL 10 MG TAB PO SCH (08:28)
--- NOTE | 2016-10-05 09:35 | RADRPT ---
Vent Rate: 76 bpm RR Interval: 0 msec IA Interval: 156 msec QRS Duration: 132 msec QT Interval: 450 msec QTC Interval: 506 msec P-R-T [place]: 55 - -39 - 130 degrees Sinus rhythm with premature supraventricular complexes Left axis deviation Left ventricular hypertrophy with QRS widening T wave abnormality, consider lateral ischemia Abnormal ECG Electronically Signed By: Alberto Arrington [id number]
--- NOTE | 2016-10-05 11:06 | PN ---
Date/Time of Note Date/Time of Note DATE: 10/05/16 TIME: 11:04 Assessment/Plan VTE Prophylaxis VTE Prophylaxis Intervention: SCD's Lines/Catheters [facility] Saline Lock Central line still needed: No Urinary Cath still in place: No Assessment/Plan Chief Complaint/Hosp Course 1. Clinical systolic heart failure. 2. Pleural effusion. 3. Hypokalemia. better 4. Cardiomyopathy. 5. Decreased ejection fraction. 6 bradycardia hx Problems: Assessment/Plan 1. Pt is planed for cardiac cath Subjective 24 Hr Interval Summary Constitutional: requiring O2 Eyes: no complaints ENT: no complaints Respiratory: shortness of breath (rest) Cardiovascular: edema, lightheadedness, paroxysmal nocturnal dyspnea Gastrointestinal: no complaints Genitourinary: no complaints Musculoskeletal: no complaints Skin: no complaints Neurologic: no complaints Exam/Review of Systems Vital Signs Vitals Vital Signs Date Time Temp Pulse Resp B/P Pulse Ox O2 Delivery O2 Flow Rate FiO2 10/05/16 09:11 73 10/05/16 08:00 Nasal Cannula 2.0 10/05/16 07:23 98.4 17 126/84 92 10/01/16 13:50 21 Intake and Output 10/04/16 10/04/16 10/05/16 15:00 23:00 07:00 Intake Total 480 ml 400 ml Output Total 400 ml Balance 80 ml 400 ml Exam Constitutional: alert, oriented Psych: no complaints Head: atraumatic, normocephalic Eyes: nl conjunctiva ENMT: nl external ears & nose, nl lips & teeth Neck: non-tender, supple Respiratory: congested cough, crackles/rales, diminished breath sounds, labored breathing Cardiovascular: irregular rhythm Gastrointestinal: soft Genitourinary - Male: nl penis Musculoskeletal: nl extremities to inspection Extremities: normal pulses Results Result Diagram: 10/05/16 0625 10/05/16 0625 Results 24 hrs Laboratory Tests Test 10/05/16 06:25 White Blood Count 7.1 Red Blood Count 5.50 Hemoglobin 15.8 Hematocrit 50.6 Mean Corpuscular Volume 92.0 Mean Corpuscular Hemoglobin 28.7 L Mean Corpuscular Hemoglobin Concent 31.2 L Red Cell Distribution Width 14.1 Platelet Count 199 Mean Platelet Volume 10.8 H Neutrophils % 60.9 Lymphocytes % 25.0 Monocytes % 10.8 Eosinophils % 2.7 Basophils % 0.3 Nucleated Red Blood Cells % 0.0 Neutrophils # 4.3 Lymphocytes # 1.8 Monocytes # 0.8 Eosinophils # 0.2 Basophils # 0.0 Nucleated Red Blood Cells # 0.0 Prothrombin Time 13.2 Prothrombin Time Ratio 1.0 INR International Normalized Ratio 1.00 Sodium Level 138 Potassium Level 3.7 Chloride Level 102 Carbon Dioxide Level 30 Anion Gap 10 Blood Urea Nitrogen 25 H Creatinine 1.16 Glucose Level 88 Calcium Level 8.8 Medications Medications Current Medications Albuterol (Ventolin Hfa) 2 puff Q4 INH Last administered on 10/05/16 08:29; Admin Dose 2 PUFF; Start 10/01/16 at 17:00 Aspirin (Aspirin) 81 mg DAILY PO Last administered on 10/05/16 08:27; Admin Dose 81 MG; Start 10/02/16 at 09:00 Lisinopril (Zestril) 10 mg DAILY PO Last administered on 10/05/16 08:28; Admin Dose 10 MG; Start 10/02/16 at 09:00 Ondansetron HCl (Zofran Inj) 4 mg Q6H PRN IV NAUSEA AND/OR VOMITING; Start at 16:30 Acetaminophen (Tylenol Tab) 650 mg Q6H PRN PO PAIN LEVEL 1-3 OR FEVER; Start at 16:30 Acetaminophen (Tylenol Supp) 650 mg Q6H PRN [place] PAIN LEVEL 1-3 OR FEVER; Start 10/01/16 at 16:30 Acetaminophen/ Hydrocodone Bitart ([place] (5/325)) 1 tab Q6H PRN PO MODERATE PAIN LEVEL 4-6; Start 10/01/16 at 16:30 Morphine Sulfate (morphine) 2 mg Q4H PRN IV SEVERE PAIN LEVEL 7-10; Start 10/01 at 16:30 Docusate Sodium (Colace) 100 mg Q12H PRN PO CONSTIPATION; Start 10/01/16 at 16: 30 Magnesium Hydroxide (Milk Of Mag) 30 ml DAILY PRN PO CONSTIPATION; Start at 16:30 Bisacodyl (Dulcolax) 5 mg DAILY PRN PO CONSTIPATION; Start 10/01/16 at 16:30 Enoxaparin Sodium (Lovenox) 40 mg DAILY SC Last administered on 10/04/16 08:37 ; Admin Dose 40 MG; Start 10/02/16 at 09:00; Status Future Hold Lorazepam (Ativan) 1 mg Q6H PRN PO ANXIETY Last administered on 10/04/16 03:42 ; Admin Dose 1 MG; Start 10/02/16 at 06:30 Pantoprazole (Protonix Tab) 40 mg DAILY@06 PO Last administered on 10/05/16 06 :01; Admin Dose 40 MG; Start 10/03/16 at 06:00 Potassium Chloride (Klor-Con 10) 10 meq BID PO Last administered on 10/05/16 08:27; Admin Dose 10 MEQ; Start 10/02/16 at 21:00 Carvedilol (Coreg) 3.125 mg BID PO Last administered on 10/05/16 08:28; Admin Dose 3.125 MG; Start 10/03/16 at 21:00 DAR DUPREE Oct 05, 2016 11:06
[2016-10-05] MEDS ORDERED: MIDAZOLAM 1 MG/ML 2 ML INJ ONE (11:24)
[2016-10-05] MEDS ORDERED: FENTAnyl 50 MCG/ML VIAL ONE (11:25)
[2016-10-05] MEDS ORDERED: HEPARIN 1000 UNITS/ML 10 ML INJ ONE (11:26)
[2016-10-05] MEDS ORDERED: VERAPAMIL 5 MG INJ ONE (11:26)
[2016-10-05] MEDS ORDERED: NITROGLYCERIN (IC) 100 MCG/ML INJ ONE (11:27)
[2016-10-05] MEDS ORDERED: HEPARIN 1000 UNITS/NS (A-LINE) 1,000 ML ONE (12:06)
[2016-10-05] MEDS ORDERED: LIDOCAINE 1% (MDV) 20 ML INJ ONE (12:06)
[2016-10-05] MEDS ORDERED: IODIXANOL LOCM 100 ML BTL ONE ×2 (12:06→12:18)
[2016-10-05] MEDS ORDERED: SOD CHLORIDE 0.9% 1,000 ML IV SCH (13:11)
--- NOTE | 2016-10-05 13:11 | CONS ---
Date/Time of Note Date/Time of Note DATE: 10/05/16 TIME: 13:07 Assessment/Plan Assessment/Plan Chief Complaint/Hosp Course IMPRESSION: 1. Congestive heart failure exacerbation, systolic, acute on chronic.-negative troponin x 3 since admit 2. Abnormal cardiac stress test revealing inferior ischemia recently now POD#0 s/p LHC with PTCA/stent x 1 to distal LCX for 95% stenosis 3. Cardiomyopathy with decreased left ventricular ejection fraction, last approximately 35% by stress and echo. EF 35% by echo this admit 4. Pleural effusion. 5. Bradycardia.-improved with decrease in dosage of coreg 6. Dyslipidemia-LDL 60 HDL 46 Recc -Tele -serial ecg's -Continue coreg/ACEI -Continue lasix diuresis -Now asa 81 mg/brilinta 90 po bid Problems: Consultation Date/Type/Reason Admit Date/Time Oct 04, 2016 at 07:13 Initial Consult Date 10/03/2016 Type of Consultation: Cardiology Reason for Consultation abnormal MPI/Cardiomyopathy/CP Referring Provider: SAMARIA LINO MD Exam/Review of Systems Vital Signs Vitals Vital Signs Date Time Temp Pulse Resp B/P Pulse Ox O2 Delivery O2 Flow Rate FiO2 10/05/16 09:11 73 10/05/16 08:00 Nasal Cannula 2.0 10/05/16 07:23 98.4 17 126/84 92 10/01/16 13:50 21 Intake and Output 10/04/16 10/04/16 10/05/16 15:00 23:00 07:00 Intake Total 480 ml 400 ml Output Total 400 ml Balance 80 ml 400 ml Exam Review of Systems: CONSTITUTIONAL: No fevers, chills. PULMONARY: mild sob CARDIOVASCULAR:intermittent chest pain GASTROINTESTINAL: No nausea/vomiting. GENITOURINARY: No hematuria/dysuria. MUSCULOSKELETAL: No myagias/arthalgias. PSYCHIATRIC: The patient denies depression. NEUROLOGIC: No weakness Constitutional: alert Psych: no complaints Head: normocephalic ENMT: mucosa pink and moist Neck: jvd (9 cm water), supple Respiratory: clear to auscultation Cardiovascular: regular rate and rhythm Gastrointestinal: non-tender, soft Musculoskeletal: muscle tone (normal) Extremities: edema (none) Neurological: other (No focal deficits) Results Result Diagram: 10/05/1625 10/05/16624 Results 24 hrs Laboratory Tests Test 10/05/16 06:25 White Blood Count 7.1 Red Blood Count 5.50 Hemoglobin 15.8 Hematocrit 50.6 Mean Corpuscular Volume 92.0 Mean Corpuscular Hemoglobin 28.7 L Mean Corpuscular Hemoglobin Concent 31.2 L Red Cell Distribution Width 14.1 Platelet Count 199 Mean Platelet Volume 10.8 H Neutrophils % 60.9 Lymphocytes % 25.0 Monocytes % 10.8 Eosinophils % 2.7 Basophils % 0.3 Nucleated Red Blood Cells % 0.0 Neutrophils # 4.3 Lymphocytes # 1.8 Monocytes # 0.8 Eosinophils # 0.2 Basophils # 0.0 Nucleated Red Blood Cells # 0.0 Prothrombin Time 13.2 Prothrombin Time Ratio 1.0 INR International Normalized Ratio 1.00 Sodium Level 138 Potassium Level 3.7 Chloride Level 102 Carbon Dioxide Level 30 Anion Gap 10 Blood Urea Nitrogen 25 H Creatinine 1.16 Glucose Level 88 Calcium Level 8.8 Medications Medications Current Medications Albuterol (Ventolin Hfa) 2 puff Q4 INH Last administered on 10/05/16 08:29; Admin Dose 2 PUFF; Start 10/01/16 at 17:00 Aspirin (Aspirin) 81 mg DAILY PO Last administered on 10/05/16 08:27; Admin Dose 81 MG; Start 10/02/16 at 09:00 Lisinopril (Zestril) 10 mg DAILY PO Last administered on 10/05/16 08:28; Admin Dose 10 MG; Start 10/02/16 at 09:00 Ondansetron HCl (Zofran Inj) 4 mg Q6H PRN IV NAUSEA AND/OR VOMITING; Start at 16:30 Acetaminophen (Tylenol Tab) 650 mg Q6H PRN PO PAIN LEVEL 1-3 OR FEVER; Start at 16:30 Acetaminophen (Tylenol Supp) 650 mg Q6H PRN [place] PAIN LEVEL 1-3 OR FEVER; Start 10/01/16 at 16:30 Acetaminophen/ Hydrocodone Bitart ([place] (5/325)) 1 tab Q6H PRN PO MODERATE PAIN LEVEL 4-6; Start 10/01/16 at 16:30 Morphine Sulfate (morphine) 2 mg Q4H PRN IV SEVERE PAIN LEVEL 7-10; Start 10/01 at 16:30 Docusate Sodium (Colace) 100 mg Q12H PRN PO CONSTIPATION; Start 10/01/16 at 16: 30 Magnesium Hydroxide (Milk Of Mag) 30 ml DAILY PRN PO CONSTIPATION; Start at 16:30 Bisacodyl (Dulcolax) 5 mg DAILY PRN PO CONSTIPATION; Start 10/01/16 at 16:30 Enoxaparin Sodium (Lovenox) 40 mg DAILY SC Last administered on 10/04/16 08:37 ; Admin Dose 40 MG; Start 10/02/16 at 09:00; Status Future Hold Lorazepam (Ativan) 1 mg Q6H PRN PO ANXIETY Last administered on 10/04/16 03:42 ; Admin Dose 1 MG; Start 10/02/16 at 06:30 Pantoprazole (Protonix Tab) 40 mg DAILY@06 PO Last administered on 10/05/16 06 :01; Admin Dose 40 MG; Start 10/03/16 at 06:00 Potassium Chloride (Klor-Con 10) 10 meq BID PO Last administered on 10/05/16 08:27; Admin Dose 10 MEQ; Start 10/02/16 at 21:00 Carvedilol (Coreg) 3.125 mg BID PO Last administered on 10/05/16 08:28; Admin Dose 3.125 MG; Start 10/03/16 at 21:00 SARAH PERKINS Oct 05, 2016 13:11
[2016-10-05] MEDS ORDERED: ASPIRIN 325 MG TAB ONE (13:14)
[2016-10-05] MEDS ORDERED: TICAGRELOR 90 MG TABLET ONE (13:14)
[2016-10-05] MEDS ORDERED: OXYCODONE/ACETAMINOPHEN (5/325) TAB PO PRN (13:30)
[2016-10-05] MEDS ORDERED: ONDANSETRON 4 MG INJ IV PRN (13:30)
[2016-10-05] MEDS ORDERED: AL HYDROX/MG HYDROX/SIMETH 30 ML CUP PO PRN (13:30)
[2016-10-05] MEDS ORDERED: morphine 2 MG INJ IV PRN (13:30)
[2016-10-05] MEDS ORDERED: ACETAMINOPHEN 325 MG TAB PO PRN (13:30)
[2016-10-05] MEDS: TICAGRELOR 90 MG TABLET PO SCH (20:41)
[2016-10-06] VITALS (20 sets, daily range): BP systolic 122–162; BP diastolic 54–79; PULSE 50–84; RESP 0–20
[2016-10-06] MEDS: ALBUTEROL 18 GM INHALER INH SCH ×6 (01:00→22:34)
[2016-10-06 05:19] LABS: ADD SCAN DIFF NO
[2016-10-06 05:34] LABS: BASOPHILS % 0.2 % (0.0-2.0); EOSINOPHILS # 0.2 10^3/ul (0.0-0.5); HEMATOCRIT 46.7 % (42.0-52.0); HEMOGLOBIN 15.1 g/dl (14.0-18.0); LYMPHOCYTES # 1.3 10^3/ul (0.8-2.9); LYMPHOCYTES % 14.7 % (15.0-51.0); MEAN CORPUSCULAR HEMOGLOBIN 29.7 pg (29.0-33.0); MEAN CORPUSCULAR HGB CONC 32.3 g/dl (32.0-37.0); MEAN CORPUSCULAR VOLUME 91.7 fl (82.0-101.0); MEAN PLATELET VOLUME 11.4 fl (7.4-10.4); MONOCYTE # 1.1 10^3/ul (0.3-0.9); MONOCYTES % 12.1 % (0.0-11.0); NEUTROPHIL # 6.4 10^3/ul (1.6-7.5); NEUTROPHILS % 70.7 % (39.0-77.0); PLATELET COUNT 177 10^3/UL (140-415); RED BLOOD COUNT 5.09 10^6/ul (4.70-6.10); RED CELL DISTRIBUTION WIDTH 14.1 % (11.5-14.5); WHITE BLOOD COUNT 9.1 10^3/ul (4.8-10.8)
[2016-10-06 05:48] LABS: POTASSIUM 3.5 mmol/L (3.5-5.1)
[2016-10-06 05:50] LABS: CREATININE 1.22 mg/dl (0.61-1.24)
[2016-10-06 05:51] LABS: CALCIUM 8.6 mg/dl (8.4-10.2)
[2016-10-06] MEDS: PANTOPRAZOLE (EC) 40 MG TAB PO SCH (06:17)
[2016-10-06] MEDS: FUROSEMIDE 20 MG INJ IV SCH ×2 (06:18→18:37)
[2016-10-06] MEDS: LISINOPRIL 10 MG TAB PO SCH (08:16)
[2016-10-06] MEDS: POTASSIUM CHLORIDE (SR) 10 MEQ TAB PO SCH ×2 (08:16→20:45)
[2016-10-06] MEDS: ASPIRIN (EC) 81 MG TAB PO SCH (08:16)
[2016-10-06] MEDS: TICAGRELOR 90 MG TABLET PO SCH ×2 (08:17→22:36)
[2016-10-06] MEDS: ASPIRIN 81 MG TAB PO SCH (08:19)
[2016-10-06 11:30] LABS: ADD SCAN DIFF NO
[2016-10-06 11:32] LABS: BASOPHILS % 0.1 % (0.0-2.0); EOSINOPHILS # 0.2 10^3/ul (0.0-0.5); EOSINOPHILS % 1.7 % (0.0-7.0); HEMATOCRIT 51.2 % (42.0-52.0); HEMOGLOBIN 15.8 g/dl (14.0-18.0); LYMPHOCYTES # 1.6 10^3/ul (0.8-2.9); LYMPHOCYTES % 15.5 % (15.0-51.0); MEAN CORPUSCULAR HEMOGLOBIN 28.7 pg (29.0-33.0); MEAN CORPUSCULAR HGB CONC 30.9 g/dl (32.0-37.0); MEAN CORPUSCULAR VOLUME 92.9 fl (82.0-101.0); MEAN PLATELET VOLUME 10.8 fl (7.4-10.4); MONOCYTE # 1.2 10^3/ul (0.3-0.9); MONOCYTES % 11.8 % (0.0-11.0); NEUTROPHIL # 7.1 10^3/ul (1.6-7.5); NEUTROPHILS % 70.7 % (39.0-77.0); PLATELET COUNT 193 10^3/UL (140-415); RED BLOOD COUNT 5.51 10^6/ul (4.70-6.10); RED CELL DISTRIBUTION WIDTH 14.3 % (11.5-14.5); WHITE BLOOD COUNT 10.1 10^3/ul (4.8-10.8)
--- NOTE | 2016-10-06 11:56 | PN ---
Date/Time of Note Date/Time of Note DATE: 10/06/16 TIME: 11:54 Assessment/Plan VTE Prophylaxis VTE Prophylaxis Intervention: ambulation Lines/Catheters IV Catheter Type (from [facility]): [place] [facility] Urinary Cath still in place: No Assessment/Plan Chief Complaint/Hosp Course 1. Clinical systolic heart failure. 2. Pleural effusion. 3. Hypokalemia. better 4. Cardiomyopathy. 5. Decreased ejection fraction. 6 bradycardia hx Problems: Assessment/Plan 1. S/p interventional heart cath 2. Transfer to tele 3. ABG on room air to determine need of supplemental oxygen 4. D?C planning Subjective 24 Hr Interval Summary Constitutional: improved, no complaints Eyes: no complaints ENT: no complaints Respiratory: no complaints Cardiovascular: no complaints Gastrointestinal: no complaints Genitourinary: no complaints Musculoskeletal: no complaints Skin: no complaints Exam/Review of Systems Vital Signs Vitals Vital Signs Date Time Temp Pulse Resp B/P Pulse Ox O2 Delivery O2 Flow Rate FiO2 10/06/16 11:00 77 14 130/67 97 Nasal Cannula 2.0 10/06/16 08:02 98.2 Intake and Output 10/05/16 10/05/16 10/06/16 15:00 23:00 07:00 Intake Total 840 ml 200 ml Output Total 1000 ml Balance -160 ml 200 ml Exam Constitutional: alert, oriented, well developed Psych: no complaints Head: normocephalic Eyes: nl conjunctiva ENMT: nl external ears & nose Neck: supple Skin: other (right groin wound clean and dry) Results Result Diagram: 10/06/16 1115 10/06/16 0420 Results 24 hrs Laboratory Tests Test 10/06/16 04:20 10/06/16 11:15 White Blood Count 9.1 # 10.1 Red Blood Count 5.09 5.51 Hemoglobin 15.1 15.8 Hematocrit 46.7 51.2 Mean Corpuscular Volume 91.7 92.9 Mean Corpuscular Hemoglobin 29.7 28.7 L Mean Corpuscular Hemoglobin Concent 32.3 30.9 L Red Cell Distribution Width 14.1 14.3 Platelet Count 177 193 Mean Platelet Volume 11.4 H 10.8 H Neutrophils % 70.7 70.7 Lymphocytes % 14.7 L 15.5 Monocytes % 12.1 H 11.8 H Eosinophils % 2.0 1.7 Basophils % 0.2 0.1 Nucleated Red Blood Cells % 0.0 0.0 Neutrophils # 6.4 7.1 Lymphocytes # 1.3 1.6 Monocytes # 1.1 H 1.2 H Eosinophils # 0.2 0.2 Basophils # 0.0 0.0 Nucleated Red Blood Cells # 0.0 0.0 Sodium Level 140 Potassium Level 3.5 Chloride Level 103 Carbon Dioxide Level 29 Anion Gap 12 Blood Urea Nitrogen 24 H Creatinine 1.22 Glucose Level 86 Calcium Level 8.6 Medications Medications Current Medications Aspirin (Aspirin) 81 mg DAILY PO Last administered on 10/05/16 08:27; Admin Dose 81 MG; Start 10/02/16 at 09:00 Lisinopril (Zestril) 10 mg DAILY PO Last administered on 10/06/16 08:16; Admin Dose 10 MG; Start 10/02/16 at 09:00 Ondansetron HCl (Zofran Inj) 4 mg Q6H PRN IV NAUSEA AND/OR VOMITING; Start at 16:30 Acetaminophen (Tylenol Tab) 650 mg Q6H PRN PO PAIN LEVEL 1-3 OR FEVER; Start at 16:30 Acetaminophen (Tylenol Supp) 650 mg Q6H PRN [place] PAIN LEVEL 1-3 OR FEVER; Start 10/01/16 at 16:30 Acetaminophen/ Hydrocodone Bitart ([place] (5/325)) 1 tab Q6H PRN PO MODERATE PAIN LEVEL 4-6; Start 10/01/16 at 16:30 Morphine Sulfate (morphine) 2 mg Q4H PRN IV SEVERE PAIN LEVEL 7-10; Start 10/01 at 16:30 Docusate Sodium (Colace) 100 mg Q12H PRN PO CONSTIPATION; Start 10/01/16 at 16: 30 Magnesium Hydroxide (Milk Of Mag) 30 ml DAILY PRN PO CONSTIPATION; Start at 16:30 Bisacodyl (Dulcolax) 5 mg DAILY PRN PO CONSTIPATION; Start 10/01/16 at 16:30 Enoxaparin Sodium (Lovenox) 40 mg DAILY SC Last administered on 10/04/16 08:37 ; Admin Dose 40 MG; Start 10/02/16 at 09:00; Status Future Hold Lorazepam (Ativan) 1 mg Q6H PRN PO ANXIETY Last administered on 10/04/16 03:42 ; Admin Dose 1 MG; Start 10/02/16 at 06:30 Pantoprazole (Protonix Tab) 40 mg DAILY@06 PO Last administered on 10/06/16 06 :17; Admin Dose 40 MG; Start 10/03/16 at 06:00 Potassium Chloride (Klor-Con 10) 10 meq BID PO Last administered on 10/06/16 08:16; Admin Dose 10 MEQ; Start 10/02/16 at 21:00 Carvedilol (Coreg) 3.125 mg BID PO Last administered on 10/06/16 08:16; Admin Dose 3.125 MG; Start 10/03/16 at 21:00 Aspirin (Halfprin) 81 mg DAILY PO Last administered on 10/06/16 08:16; Admin Dose 81 MG; Start 10/06/16 at 09:00 Ticagrelor (Brilinta) 90 mg BID PO Last administered on 10/06/16 08:17; Admin Dose 90 MG; Start 10/05/16 at 21:00 Acetaminophen (Tylenol Tab) 650 mg Q4H PRN PO NON-CARDIAC PAIN LEVEL 1-3; Start 10/05/16 at 13:30 Oxycodone/ Acetaminophen (Percocet (5/ 325)) 1 tab Q4H PRN PO REPORTED NON- CARDIAC PAIN 4-7; Start 10/05/16 at 13:30 Morphine Sulfate (morphine) 1 mg Q1H PRN IV PAIN NOT RELIEVED BY OTHERS; Start 10/05/16 at 13:30 Al Hydrox/Mg Hydrox/Simethicone (Mag-Al Plus) 30 ml Q4H PRN PO GASTROINTESTINAL UPSET; Start 10/05/16 at 13:30 Ondansetron HCl (Zofran Inj) 4 mg Q4H PRN IV NAUSEA AND/OR VOMITING; Start at 13:30 DAR DUPREE Oct 06, 2016 11:56
--- NOTE | 2016-10-06 14:46 | RADRPT ---
Vent Rate: 71 bpm RR Interval: 0 msec [place] Interval: 150 msec QRS Duration: 130 msec QT Interval: 438 msec QTC Interval: 475 msec P-R-T [place]: 64 - -34 - 123 degrees Normal sinus rhythm Left axis deviation LAHB Left ventricular hypertrophy with QRS widening and repolarization abnormality poor R -wave progression Cannot rule out Septal infarct , age undetermined Abnormal ECG No previous tracing available for comparison Electronically Signed By: Tadeo Hwang [id number]
--- NOTE | 2016-10-06 14:48 | RADRPT ---
Vent Rate: 45 bpm RR Interval: 0 msec [place] Interval: 156 msec QRS Duration: 134 msec QT Interval: 524 msec QTC Interval: 453 msec P-R-T [place]: 66 - -41 - 0 degrees Marked sinus bradycardia with sinus arrhythmia Left axis deviation LAHB Left ventricular hypertrophy with QRS widening T wave abnormality, consider inferolateral ischemia Abnormal ECG No previous tracing available for comparison Electronically Signed By: Tadeo Hwang [id number]
--- NOTE | 2016-10-06 15:47 | PDOCDIS ---
Discharge Instructions CONDITION Patient Condition: Stable HOME CARE INSTRUCTIONS: Special Diet: low fat/chol diet ACTIVITY: Activity Restrictions: Slowly Increase Activity FOLLOW UP/APPOINTMENTS Appointments F/U DR LINO [address] PERKINS 1 WK SAMARIA LINO MD Oct 06, 2016 15:47
[2016-10-06] MEDS ORDERED: CARV3.1260 PO (15:50)
[2016-10-06] MEDS ORDERED: POTA10TA37 PO (15:50)
[2016-10-06] MEDS ORDERED: ASPI-664 PO (15:50)
[2016-10-06] MEDS ORDERED: TICA90TA PO (15:53)
[2016-10-06 16:06] LABS: AADO2 Arterial 29.9 mmHg (7.0-24.0); Allen Test ACCEPTAB; Arterial Base Excess 2.1 mmol/L (-3.0-3); Arterial COHb 0.4 % (0.0-3.0); Arterial HCO3 27.5 mmol/L (22.0-26.0); Arterial MetHb 0.4 % (0.0-1.5); Arterial Total Hemglobin 17.6 g/dl (12.0-18.0); MODE ROOM AIR
--- NOTE | 2016-10-06 16:20 | CONS ---
Date/Time of Note Date/Time of Note DATE: 10/06/16 TIME: 16:18 Assessment/Plan Assessment/Plan Additional Assessment/Plan 1. Congestive heart failure exacerbation, systolic, acute on chronic.-negative troponin x 3 since admit - better now, stable fluid satus 2. Abnormal cardiac stress test revealing inferior ischemia recently now POD#0 s/p LHC with PTCA/stent x 1 to distal LCX for 95% stenosis - s/p PCI on dul therapy - will see DR. Lovett in offoce 3. Cardiomyopathy with decreased left ventricular ejection fraction, last approximately 35% by stress and echo. EF 35% by echo this admit - wl re- evaluate - ICD outpt eval. 4. Pleural effusion- better 5. Bradycardia.-improved with decrease in dosage of coreg 6. Dyslipidemia-LDL 60 HDL 46 Consultation Date/Type/Reason Admit Date/Time Oct 04, 2016 at 07:13 Initial Consult Date Type of Consultation: Cardiology Referring Provider: SAMARIA LINO MD 24 HR Interval Summary Free Text/Dictation NO acute events - cath site looks well- [plan for dispo today ROS: No fever, no chills, no nausea, no vomiting, no diarrhea/constipation No recent weight changes No chest pain, no PND, no orthopnea No dizziness, blurred vision No thirst, no heat or cold intolerance Exam/Review of Systems Vital Signs Vitals Vital Signs Date Time Temp Pulse Resp B/P Pulse Ox O2 Delivery O2 Flow Rate FiO2 10/06/16 16:08 97.2 79 17 126/77 96 10/06/16 13:04 Nasal Cannula 2.0 Intake and Output 10/05/16 10/05/16 10/06/16 15:00 23:00 07:00 Intake Total 840 ml 200 ml Output Total 1000 ml Balance -160 ml 200 ml Exam General: WN/WD/NAD, AOx 3 HEENT: Unicetric/atraumatic/EOMI (follow commands) NECK: JVD elevated, no thyromegaly Lymph: no lymphadenopathy HEART: regular with no S3, II/ systolic murmur at apex LUNGS: Coarse sounds ABD: soft, NT, ND, +BS : Intact Neuro: non focal SKIN: chronic changes EXT: trace edema Results Result Diagram: 10/06/16 1115 10/06/16 0420 Results 24 hrs Laboratory Tests Test 10/06/16 04:20 10/06/16 11:15 10/06/16 11:48 White Blood Count 9.1 # 10.1 Red Blood Count 5.09 5.51 Hemoglobin 15.1 15.8 Hematocrit 46.7 51.2 Mean Corpuscular Volume 91.7 92.9 Mean Corpuscular Hemoglobin 29.7 28.7 L Mean Corpuscular Hemoglobin Concent 32.3 30.9 L Red Cell Distribution Width 14.1 14.3 Platelet Count 177 193 Mean Platelet Volume 11.4 H 10.8 H Neutrophils % 70.7 70.7 Lymphocytes % 14.7 L 15.5 Monocytes % 12.1 H 11.8 H Eosinophils % 2.0 1.7 Basophils % 0.2 0.1 Nucleated Red Blood Cells % 0.0 0.0 Neutrophils # 6.4 7.1 Lymphocytes # 1.3 1.6 Monocytes # 1.1 H 1.2 H Eosinophils # 0.2 0.2 Basophils # 0.0 0.0 Nucleated Red Blood Cells # 0.0 0.0 Sodium Level 140 Potassium Level 3.5 Chloride Level 103 Carbon Dioxide Level 29 Anion Gap 12 Blood Urea Nitrogen 24 H Creatinine 1.22 Glucose Level 86 Calcium Level 8.6 Blood Gas Specimen Source Blood arterial Arterial Blood Date Drawn 10/06/2016 12:35:48 PM Arterial Blood pH (Temp corrected) 7.402 Arterial Blood pCO2 (Temp correct) 45.2 H Arterial Blood pO2 (Temp corrected) 65.7 L Arterial Blood HCO3 27.5 H Arterial Blood Base Excess 2.1 Arterial Blood Oxygen Saturation 92.7 L Tony Test ACCEPTAB Arterial Blood Gas Puncture Site Right Radial Arterial Blood Carboxyhemoglobin 0.4 Arterial Blood Methemoglobin 0.4 Blood Gas A-a O2 Differential 29.9 H Oxyhemoglobin Percent 92.0 L Total Hemoglobin 17.6 Blood Gas Temperature 37.0 Blood Gas Actual Respiration Rate 18 Blood Gas Modality ROOM AIR FiO2 21.0 Blood Gas Notified Whom RDIX Blood Gas Notified Time 10/06/2016 12:48:25 PM Medications Medications Current Medications Lisinopril (Zestril) 10 mg DAILY PO Last administered on 10/06/16t 08:16; Admin Dose 10 MG; Start 10/02/16 at 09:00 Ondansetron HCl (Zofran Inj) 4 mg Q6H PRN IV NAUSEA AND/OR VOMITING; Start at 16:30 Acetaminophen (Tylenol Tab) 650 mg Q6H PRN PO PAIN LEVEL 1-3 OR FEVER; Start at 16:30 Acetaminophen (Tylenol Supp) 650 mg Q6H PRN [place] PAIN LEVEL 1-3 OR FEVER; Start 10/01/16 at 16:30 Acetaminophen/ Hydrocodone Bitart ([place] (5/325)) 1 tab Q6H PRN PO MODERATE PAIN LEVEL 4-6; Start 10/01/16 at 16:30 Morphine Sulfate (morphine) 2 mg Q4H PRN IV SEVERE PAIN LEVEL 7-10; Start 10/01 at 16:30 Docusate Sodium (Colace) 100 mg Q12H PRN PO CONSTIPATION; Start 10/01/16 at 16: 30 Magnesium Hydroxide (Milk Of Mag) 30 ml DAILY PRN PO CONSTIPATION; Start at 16:30 Bisacodyl (Dulcolax) 5 mg DAILY PRN PO CONSTIPATION; Start 10/01/16 at 16:30 Enoxaparin Sodium (Lovenox) 40 mg DAILY SC Last administered on 10/04/16 08:37 ; Admin Dose 40 MG; Start 10/02/16 at 09:00; Status Future Hold Lorazepam (Ativan) 1 mg Q6H PRN PO ANXIETY Last administered on 10/04/16 03:42 ; Admin Dose 1 MG; Start 10/02/16 at 06:30 Pantoprazole (Protonix Tab) 40 mg DAILY@06 PO Last administered on 10/06/16 06 :17; Admin Dose 40 MG; Start 10/03/16 at 06:00 Potassium Chloride (Klor-Con 10) 10 meq BID PO Last administered on 10/06/16 08:16; Admin Dose 10 MEQ; Start 10/02/16 at 21:00 Carvedilol (Coreg) 3.125 mg BID PO Last administered on 10/06/16 08:16; Admin Dose 3.125 MG; Start 10/03/16 at 21:00 Aspirin (Halfprin) 81 mg DAILY PO Last administered on 10/06/16 08:16; Admin Dose 81 MG; Start 10/06/16 at 09:00 Ticagrelor (Brilinta) 90 mg BID PO Last administered on 4/22/17at 08:17; Admin Dose 90 MG; Start 10/05/16 at 21:00 Acetaminophen (Tylenol Tab) 650 mg Q4H PRN PO NON-CARDIAC PAIN LEVEL 1-3; Start 10/05/16 at 13:30 Oxycodone/ Acetaminophen (Percocet (5/ 325)) 1 tab Q4H PRN PO REPORTED NON- CARDIAC PAIN 4-7; Start 10/05/16 at 13:30 Morphine Sulfate (morphine) 1 mg Q1H PRN IV PAIN NOT RELIEVED BY OTHERS; Start 10/05/16 at 13:30 Al Hydrox/Mg Hydrox/Simethicone (Mag-Al Plus) 30 ml Q4H PRN PO GASTROINTESTINAL UPSET; Start 10/05/16 at 13:30 Ondansetron HCl (Zofran Inj) 4 mg Q4H PRN IV NAUSEA AND/OR VOMITING; Start at 13:30 DELVIS KNIGHT MD Oct 06, 2016 16:20
[2016-10-06] MEDS: LORAZEPAM 1 MG TAB PO PRN (20:45)
[2016-10-07] VITALS (11 sets, daily range): BP systolic 107–119; BP diastolic 52–70; PULSE 41–94; RESP 17–18
[2016-10-07] MEDS: ALBUTEROL 18 GM INHALER INH SCH ×5 (01:00→13:57)
[2016-10-07] MEDS: FUROSEMIDE 20 MG INJ IV SCH (06:22)
[2016-10-07] MEDS: PANTOPRAZOLE (EC) 40 MG TAB PO SCH (06:22)
[2016-10-07] MEDS: ASPIRIN (EC) 81 MG TAB PO SCH (08:43)
[2016-10-07] MEDS: TICAGRELOR 90 MG TABLET PO SCH (08:46)
[2016-10-07] MEDS: LISINOPRIL 10 MG TAB PO SCH (08:47)
[2016-10-07] MEDS: POTASSIUM CHLORIDE (SR) 10 MEQ TAB PO SCH (08:47)
[2016-10-07 10:55] LABS: ADD SCAN DIFF NO
[2016-10-07 10:56] LABS: BASOPHILS % 0.2 % (0.0-2.0); EOSINOPHILS # 0.2 10^3/ul (0.0-0.5); EOSINOPHILS % 1.9 % (0.0-7.0); HEMATOCRIT 51.4 % (42.0-52.0); HEMOGLOBIN 16.1 g/dl (14.0-18.0); LYMPHOCYTES # 1.6 10^3/ul (0.8-2.9); MEAN CORPUSCULAR HEMOGLOBIN 29.2 pg (29.0-33.0); MEAN CORPUSCULAR HGB CONC 31.3 g/dl (32.0-37.0); MEAN CORPUSCULAR VOLUME 93.1 fl (82.0-101.0); MONOCYTE # 1.1 10^3/ul (0.3-0.9); MONOCYTES % 11.7 % (0.0-11.0); NEUTROPHIL # 6.4 10^3/ul (1.6-7.5); NEUTROPHILS % 68.8 % (39.0-77.0); PLATELET COUNT 184 10^3/UL (140-415); RED BLOOD COUNT 5.52 10^6/ul (4.70-6.10); RED CELL DISTRIBUTION WIDTH 14.2 % (11.5-14.5); WHITE BLOOD COUNT 9.3 10^3/ul (4.8-10.8)
[2016-10-07 11:22] LABS: POTASSIUM 3.9 mmol/L (3.5-5.1)
[2016-10-07 11:24] LABS: CREATININE 1.48 mg/dl (0.61-1.24)
[2016-10-07 11:25] LABS: CALCIUM 9.3 mg/dl (8.4-10.2)
--- NOTE | 2016-10-07 16:01 | CONS ---
Date/Time of Note Date/Time of Note DATE: 10/07/16 TIME: 16:00 Assessment/Plan Assessment/Plan Additional Assessment/Plan 1. Congestive heart failure exacerbation, systolic, acute on chronic.-negative troponin x 3 since admit - better now, stable fluid status - pt with episode of SOB yesterday, but better now - d/c shortly 2. Abnormal cardiac stress test revealing inferior ischemia recently now POD#0 s/p LHC with PTCA/stent x 1 to distal LCX for 95% stenosis - s/p PCI on dul therapy - will see DR. Lovett in office 3. Cardiomyopathy with decreased left ventricular ejection fraction, last approximately 35% by stress and echo. EF 35% by echo this admit - wl re- evaluate - ICD outpt eval. 4. Pleural effusion- better - med rx advised 5. Bradycardia.-improved with decrease in dosage of coreg 6. Dyslipidemia-LDL 60 HDL 46 Consultation Date/Type/Reason Admit Date/Time Oct 04, 2016 at 07:13 Type of Consultation: Cardiology Referring Provider: SAMARIA LINO MD 24 HR Interval Summary Free Text/Dictation NO acute events - no new sx - no cP - no ectopy on tele - home today ROS: No fever, no chills, no nausea, no vomiting, no diarrhea/constipation No recent weight changes No chest pain, no PND, no orthopnea No dizziness, blurred vision No thirst, no heat or cold intolerance Exam/Review of Systems Vital Signs Vitals Vital Signs Date Time Temp Pulse Resp B/P Pulse Ox O2 Delivery O2 Flow Rate FiO2 10/07/16 15:56 98.2 83 17 114/67 95 10/06/16 20:00 Nasal Cannula 2.0 Intake and Output 10/06/16 10/06/16 10/07/16 15:00 23:00 07:00 Intake Total 320 ml 480 ml 400 ml Output Total 950 ml 300 ml 500 ml Balance -630 ml 180 ml -100 ml Exam General: WN/WD/NAD, AOx 3 HEENT: Unicetric/atraumatic/EOMI (follow commands) NECK: JVD elevated, no thyromegaly Lymph: no lymphadenopathy HEART: regular with no S3, II/ systolic murmur at apex LUNGS: Coarse sounds ABD: soft, NT, ND, +BS : Intact Neuro: non focal SKIN: chronic changes EXT: trace edema Results Result Diagram: 10/07/16 1033 10/07/16 1033 Results 24 hrs Laboratory Tests Test 10/07/16 10:33 White Blood Count 9.3 Red Blood Count 5.52 Hemoglobin 16.1 Hematocrit 51.4 Mean Corpuscular Volume 93.1 Mean Corpuscular Hemoglobin 29.2 Mean Corpuscular Hemoglobin Concent 31.3 L Red Cell Distribution Width 14.2 Platelet Count 184 Mean Platelet Volume 11.0 H Neutrophils % 68.8 Lymphocytes % 17.0 Monocytes % 11.7 H Eosinophils % 1.9 Basophils % 0.2 Nucleated Red Blood Cells % 0.0 Neutrophils # 6.4 Lymphocytes # 1.6 Monocytes # 1.1 H Eosinophils # 0.2 Basophils # 0.0 Nucleated Red Blood Cells # 0.0 Sodium Level 141 Potassium Level 3.9 Chloride Level 99 Carbon Dioxide Level 30 Anion Gap 16 Blood Urea Nitrogen 26 H Creatinine 1.48 H Glucose Level 94 Calcium Level 9.3 Medications Medications Current Medications Lisinopril (Zestril) 10 mg DAILY PO Last administered on 10/06/16t 08:16; Admin Dose 10 MG; Start 10/02/16 at 09:00 Ondansetron HCl (Zofran Inj) 4 mg Q6H PRN IV NAUSEA AND/OR VOMITING; Start at 16:30 Acetaminophen (Tylenol Tab) 650 mg Q6H PRN PO PAIN LEVEL 1-3 OR FEVER; Start at 16:30 Acetaminophen (Tylenol Supp) 650 mg Q6H PRN [place] PAIN LEVEL 1-3 OR FEVER; Start 10/01/16 at 16:30 Acetaminophen/ Hydrocodone Bitart ([place] (5/325)) 1 tab Q6H PRN PO MODERATE PAIN LEVEL 4-6; Start 10/01/16 at 16:30 Morphine Sulfate (morphine) 2 mg Q4H PRN IV SEVERE PAIN LEVEL 7-10; Start 10/01 at 16:30 Docusate Sodium (Colace) 100 mg Q12H PRN PO CONSTIPATION; Start 10/01/16 at 16: 30 Magnesium Hydroxide (Milk Of Mag) 30 ml DAILY PRN PO CONSTIPATION; Start at 16:30 Bisacodyl (Dulcolax) 5 mg DAILY PRN PO CONSTIPATION; Start 10/01/16 at 16:30 Enoxaparin Sodium (Lovenox) 40 mg DAILY SC Last administered on 10/04/16 08:37 ; Admin Dose 40 MG; Start 10/02/16 at 09:00; Status Future Hold Lorazepam (Ativan) 1 mg Q6H PRN PO ANXIETY Last administered on 10/06/16 20:45 ; Admin Dose 1 MG; Start 10/02/16 at 06:30 Pantoprazole (Protonix Tab) 40 mg DAILY@06 PO Last administered on 10/07/16 06 :22; Admin Dose 40 MG; Start 10/03/16 at 06:00 Potassium Chloride (Klor-Con 10) 10 meq BID PO Last administered on 10/07/16 08:47; Admin Dose 10 MEQ; Start 10/02/16 at 21:00 Carvedilol (Coreg) 3.125 mg BID PO Last administered on 10/06/16 20:46; Admin Dose 3.125 MG; Start 10/03/16 at 21:00 Aspirin (Halfprin) 81 mg DAILY PO Last administered on 10/07/16 08:43; Admin Dose 81 MG; Start 10/06/16 at 09:00 Ticagrelor (Brilinta) 90 mg BID PO Last administered on 10/07/16 08:46; Admin Dose 90 MG; Start 10/05/16 at 21:00 Acetaminophen (Tylenol Tab) 650 mg Q4H PRN PO NON-CARDIAC PAIN LEVEL 1-3; Start 10/05/16 at 13:30 Oxycodone/ Acetaminophen (Percocet (5/ 325)) 1 tab Q4H PRN PO REPORTED NON- CARDIAC PAIN 4-7; Start 10/05/16 at 13:30 Morphine Sulfate (morphine) 1 mg Q1H PRN IV PAIN NOT RELIEVED BY OTHERS; Start 10/05/16 at 13:30 Al Hydrox/Mg Hydrox/Simethicone (Mag-Al Plus) 30 ml Q4H PRN PO GASTROINTESTINAL UPSET; Start 10/05/16 at 13:30 Ondansetron HCl (Zofran Inj) 4 mg Q4H PRN IV NAUSEA AND/OR VOMITING; Start at 13:30 DELVIS KNIGHT MD Oct 07, 2016 16:01
--- NOTE | 2016-10-07 17:32 | QN ---
Documentation Comment [id number] SAMARIA LINO MD Oct 07, 2016 17:32
--- NOTE | 2016-10-07 18:39 | DS ---
DATE OF ADMISSION: 10/04/2016 DATE OF DISCHARGE: 10/07/2016 HOSPITAL COURSE: The patient was admitted with shortness of breath and chest pain, has some pleural effusion. A 2D echocardiogram was done, shows patient has ejection fraction 35%. The patient underwent coronary angiogram and intervention. Post-procedure, the patient was stable and monitored. The patient was cleared by Dr. Mike to be discharged home. DISCHARGE DIAGNOSES: 1. The patient has congestive heart failure, systolic, acute and chronic. Ejection fraction 35%. The patient has abnormal cardiac stress test. ischemia and cardiomyopathy, decreased left ventricular ejection fraction. 2. Pleural effusion. 3. Bradycardia. 4. Dyslipidemia. 5. Status post coronary angiogram. Patient has PTCA and stent to the left circumflex artery from 95% stenosis. DISCHARGE MEDICATIONS: To continue on: 1. Aspirin. 2. Coreg. 3. Potassium. 4. Brilinta. 5. Albuterol. 6. Lasix. 7. Lisinopril. FOLLOWUP: The patient is to follow with Dr. Lino and Dr. Lovett as an outpatient. DISPOSITION: Patient is stable at the time of discharge. Dictated By: SAMARIA LINO MD BS/NTS Conf#: [id number] DID#: [id number]
--- NOTE | 2016-10-08 08:16 | CARRPT ---
DATE OF PROCEDURE: 10/05/2016 TYPE OF PROCEDURE: 1. Left heart catheterization. 2. Coronary angiography. 3. Measurement of left ventricular end diastolic pressure. 4. Percutaneous transluminal coronary angioplasty with placement of Synergy 2.7 x 12 mm stent x1 to distal circumflex. 5. Femoral angiography. 6. Angio-Seal closure device to right femoral artery. 7. Radial A-line. ATTENDING PHYSICIAN: Sarah Lovett MD REFERRING PHYSICIAN: Marc Lino MD TYPE OF ANESTHESIA: Conscious and local. INDICATION: Cardiomyopathy with depressed left ventricular ejection fraction, chest pain, shortness of breath, positive stress test, findings for ischemia. BRIEF HISTORY AND HOSPITAL COURSE: Mr. Ibarra is an 81-year-old male with history of cardiomyopath y, decreased left ventricular ejection fraction, approximately 35% with positive stress test f indings for inferior inferolateral ischemia. The patient has now represented to the hospital 3 time s with complaints of shortness of breath, chest pain, and has now been brought to the cardiac cath l ab in order to assess for the possibility of significant obstructive coronary artery diseasejair g to his symptoms of chest pain, shortness of breath, congestive heart failure, and cardiomyopathy w ith decreased left ventricular ejection fraction. PROCEDURE: After informed consent was obtained, the patient was brought to the [facility] Cardiac Catheter[facility] where his right radial area was prepped and draped in sterile f ashion. Lidocaine 2% was infiltrated into the radial area. Using modified Seldinger technique, the radial artery was cannulated and a 6-[place] arterial sheath was placed. At this time, we attempted to pass a catheter to the patient's radial and then brachial artery up to the patient's subclavian, but encountered tortuosity and possible occlusion. Subsequently, the radial sheath was left in laura ce to be used an A line during the case, and we changed access to the right femoral, using modified Seldinger technique. After local anesthesia was applied, the right femoral artery was cannulated an d a 6-[place]izen [place] arterial sheath was placed. A 6-[place] JL4 catheter was used to cannulate the left verito n coronary ostium. With contrast injection, multiple views of the left coronary arterial system wer e obtained. The JL4 was removed and a JR4 was used to cannulate the right coronary arterial ostium. With contrast injection, multiple views of the right coronary arterial system obtained. JR4 was r emoved over a guidewire and a 6-[place]izen [place] pigtail was passed up the aorta down the ascending aorta unti l the left ventricular end-diastolic pressure was measured and pullback across the aortic valve to a ssess for significant gradient, which there was not and removed. Subsequently, at this time, given the findings of significant obstructive lesion in the patient's ci rcumflex vessel, we moved directly into an interventional procedure. The patient had previously rec eived 5000 units of heparin with 2.5 verapamil and 200 mcg of nitroglycerin at the onset of procedur e as a radial cocktail, therefore ACT was checked returning at 270. The patient was given an additi onal 1000 units of heparin in order to assure adequate ACT. A CLS 3.5 guide was used to cannu late the left main coronary ostium. A 0.014 guidewire was passed distal to the lesion. The l esion was pretreated with a 2.5 x 8 mm balloon. The balloon was taken to 14 atmospheres x2, removed , and the lesion was stented with a 2.75 x 12 mm Synergy drug-eluting stent, inflated to 14 atmosphe res and post-dilated to 16 atmospheres. The stent delivery balloon was removed. Followup angiogram was obtained revealing excellent result, deployment of stent, JAMES 3 flow throughout the vessel, an d no signs of complication including perforation, dissection, and additionally there was a bifurcati ng branch just proximal to the stent that remained widely patent with excellent flow. Subsequently, at this time, the patient was given 200 of IC nitroglycerin and followup angiogram was obtained again, once again revealing excellent flow through the stent. No signs of complication. Subsequently, at this time, the interventional guide and guidewires were removed. A final angiographic image of the right femoral arterial insertion site was then obtained revealing the sheath to be well placed in the right common femoral artery. Subsequently, we initially used a Perclose device to the vessel; but, due to tortuosity, the Perclose was removed and Angio-Seal was u sed to seal the vessels completing the procedure. There were no noted complications. FINDINGS: 1. Coronary angiography. Right coronary artery proximally is a 3 mm vessel. It is a codominant ve ssel, gives off a small PDA, 2 mm, no significant focal stenoses, and a 3 mm posterolateral branch w ith a focal 20% to 30% stenosis. The left main is a short 3.5 mm vessel with no significant stenose s. LAD proximally is a 3.5 mm vessel and in its proximal portion, just at the takeoff of a diagonal . The first diagonal has a focal 30% stenosis. The remainder of the LAD is free of significant foc al stenoses. It goes around the apex. There are several branching diagonals with the first 2 being 2 mm vessels and that superior branch having a focal, 50% to 60% stenosis, and a very distal diagon al, sub 2 mm vessel, having an ostial 20% stenosis. The circumflex proximally is a 3.5 mm vessel an d has an ostial 20% stenosis, circumflex is a codominant vessel and gives off a left-sided PDA, 2 mm , with an ostial 20% stenosis. There is a mid-branching distal obtuse marginal which has a focal 90 % to 95% stenosis and 1 additional branching obtuse marginal which is a 3 mm vessel and has a 30% to 40% stenosis. There is a mid-branching obtuse marginal, 3 mm, with a mid-body, 20% stenosis. 2. Measurements: Left ventricular end diastolic pressure of 14 to 18. No significant aortic steno sis by gradient. 3. Percutaneous transluminal coronary angioplasty and stent placement: Prior to PTCA and stent laura cement within the patient's distal branching obtuse marginal, there is a 90% to 95% stenosis. Post- PTCA and stent placement, the patient had no residual stenosis, JAMES 3 flow throughout the vessel, a nd a moderate step-down at the distal end of the stent. No signs of complication including perforat ion or dissection and the vessel, just proximal, remains patent with no significant flow change. TOTAL FLUOROSCOPY TIME: 60 minutes. TOTAL CONTRAST: 166 mL. IMPRESSION: 1. Single-vessel obstructive coronary artery disease involving a distal branch of the circumflex, s tatus post successful percutaneous transluminal coronary angioplasty and stent placement x1 with graciela g-eluting stent 2.75 x 12 mm. 2. High normal left heart filling pressures. 3. No significant aortic stenosis by gradient. RECOMMENDATIONS: In light of procedure and findings, at this time would: 1. Maintain patient on aspirin 81 mg and Brilinta 90 mg 1 tab p.o. b.i.d. 2. Maximize medical management. 3. Aggressive risk factor reduction. 4. Patient will be admitted to the ICU for post-intervention observation and continued management o f symptoms. Dictated By: SARAH CARRASCO/ALTAF Conf#: [id number] DID#: [id number] CC: MARC LINO MD;*EndCC*
== END 2016-10-07 16:00 | disposition home or self-care (01) | DRG 247 ==
LOC: E/R 11:27 → INTOOBSV 14:31 → TEL 14:31 → OBSVTOIN 10-04 07:13 → TEL 10-04 10:13 → ICU 10-05 12:57 → MS4 10-06 13:38
PROVIDERS: ADMIT Internal Medicine Nephrology; ATTEND Internal Medicine Nephrology
PROC: B2111ZZ Fluoroscopy of Multiple Coronary Arteries using Low Osmolar Contrast (ICD-10-PCS; 2016-10-05)
PROC: 027034Z Dilation of Coronary Artery, One Artery with Drug-eluting Intraluminal Device, Percutaneous Approach (ICD-10-PCS; principal; 2016-10-05 11:00)
PROC: 4A023N7 Measurement of Cardiac Sampling and Pressure, Left Heart, Percutaneous Approach (ICD-10-PCS; 2016-10-05 11:00)
DX: I11.0 Hypertensive heart disease with heart failure (principal); I42.9 Cardiomyopathy, unspecified; R00.1 Bradycardia, unspecified; I50.23 Acute on chronic systolic (congestive) heart failure; E66.9 Obesity, unspecified; Z68.32 Body mass index [BMI] 32.0-32.9, adult; E87.6 Hypokalemia; F17.210 Nicotine dependence, cigarettes, uncomplicated; E78.5 Hyperlipidemia, unspecified; I77.1 Stricture of artery; I25.10 Atherosclerotic heart disease of native coronary artery without angina pectoris
CPT/HCPCS: 36415; 36600; 71010; 80048; 80061; 82550; 82553; 82803; 84484; 85025; 85610; 85730; 87081; 93005; 93306; 93458; 94664; G0378; J1940; C1725; C1760; C1769; C1874; C1887; C1894; C9600; J1644; J1650; J2250; J3010; J7030; Q9967

== ENCOUNTER 2017-06-13 12:49 | Emergency (ER) | payer MEDICARE, MEDICAID ==
[~2017-06-13] VITALS: Ht 170.2 cm; Wt 92.6 kg
[~2017-06-13 12:49] MED LIST changes: +ASPI-664 PO; +CARV3.1260 PO; +POTA10TA37 PO; +TICA90TA PO
[2017-06-13 13:02] VITALS: Ht 170.2 cm; Wt 92.6 kg
== END 2017-06-14 01:21 | disposition left against medical advice (07) ==
LOC: E/R 12:49
DX: Z53.21 Procedure and treatment not carried out due to patient leaving prior to being seen by health care provider (principal)

== ENCOUNTER 2017-06-28 16:58 | Inpatient (IN) | END 2017-07-02 19:03 | disposition home or self-care (01) | DRG 291 ==

== ENCOUNTER 2017-11-16 12:37 | Emergency (ER) | END 2017-11-16 14:42 | disposition home or self-care (01) ==

== ENCOUNTER 2018-04-21 10:53 | Emergency (ER) | END 2018-04-21 14:28 | disposition left against medical advice (07) ==

== ENCOUNTER 2018-04-22 12:35 | Emergency (ER) | END 2018-04-22 15:03 | disposition left against medical advice (07) ==

== ENCOUNTER 2018-04-22 15:16 | Emergency (ER) | END 2018-04-22 16:41 | disposition left against medical advice (07) ==